=== PATIENT | female | born 1945 | race Caucasian/White ===

== ENCOUNTER 2019-12-23 08:02 | Outpatient (CLI) | payer MEDICARE, MEDICAID, SELFPAY ==
--- NOTE | 2019-12-23 08:31 | ECG_ITS ---
NAME OF STUDY: LEXISCAN SESTAMIBI STRESS TEST INDICATION: Chest Pain, PROCEDURE: At the baseline, the EKG revealed normal sinus rhythm with poor R wave progression. Possible old anteroseptal IN. Relatively low voltage complexes.. The baseline blood pressure was 168/63 mm Hg with a heart rate of 100 beats/min. Lexiscan was infused over a period of 20 seconds. A total of 0.4 milligrams of Lexiscan was infused. The stress phase was continued for a total of 5 minutes. Heart rate at the end of the stress phase was 110 with a blood pressure 177/56. The EKG at the peak infusion revealed no significant changes. Sestamibi was injected 20 seconds after the Lexiscan infusion. Blood pressure at the end of the recovery phase was 170/54 with a heart rate of 109 per minute. CONCLUSION: 1. No significant EKG changes with the LexiScan infusion 2. No LexiScan induced chest pain or cardiac arrhythmia 3. Normal blood pressure and heart rate response 4. Sestamibi/sestamibi perfusion scan pending; see separate report. Electronically Signed On 12-23-2019 13:17:03 CDT by Andriy Norton M.D. [email or web address]
--- NOTE | 2019-12-23 08:31 | NMCV_ITS ---
NM sharif perf SPECT r/s* [id number] Lacey Contreras Age: 74 Gender: F : 1945 Exam Date: 12/23/2019 09:30 Ordering Phys: Andriy Norton MD ([email or web address]) Technologist: [facility] Exam Location: [facility] Indications: CHEST PAIN STRESS TEST [facility] IMAGE PROTOCOL Rest/Stress 1 Lexiscan Day Radiopharmaceutical Dose (mCi) Administration Site Administered by Rest: Tc-99m 11.0 IV [facility] Heath Sestamibi Stress:Tc-99m 33.0 IV [facility] Sestamibi Rest: 23-Dec-2019 60 Discovery 630 Stress: 23-Dec-2019 30 Discovery 630 0.4mg Lexiscan. Supine position only as patient was unable to lay prone. SPECT RESULTS Technical Quality: Good Raw Data Analysis: Breast attenuation Image Corrections: No attenuation or motion correction applied Summed Stress Score: 6 Summed Rest Score: 1 Summed Difference Score: 5 PERFUSION FINDINGS Myocardial perfusion imaging revealing a small area of decreased tracer uptake in the mid inferolateral, apical lateral and LV apex. Complete reversibility was noted at rest. FUNCTIONAL RESULTS (calculated via Gated SPECT) Stress Image LV EF (%): 93 Stress EDV (mL):54 TID: 1.1 Stress ESV (mL):4 FUNCTIONAL FINDINGS: Segmental wall motion analysis revealing no gross wall motion normalities IMPRESSIONS 1. Myocardial perfusion may revealing a small area of reversible defect in the mid inferolateral, apical lateral and LV apex, suggestive of ischemia in the distribution of the left circumflex artery. 2. Supernormal LV ejection fraction of 93%.(This could be overestimated because of the very low end-systolic volume ) 3. LV wall motion analysis revealing no gross wall motion normalities. 4. Possibly normal LV volume No similar previous studies are available for comparison Dr Andriy Norton MD FACC (Electronically Signed) Final Date: 23 Dec 2019 13:46 S
[2019-12-23 08:32] VITALS: BMI 42.0
[2019-12-23] MEDS: regadenoson 0.4 Mg/5 ml Syringe IVP (10:25)
[2019-12-23 10:30] VITALS: BP 159/52; PULSE 100
== END 2019-12-23 08:03 | disposition home or self-care (01) ==
PROVIDERS: Family Provider Nurse Practitioner Family; Visit Provider Internal Medicine Cardiovascular Disease
DX: R06.02 Shortness of breath (principal); R07.89 Other chest pain
CPT/HCPCS: 78452; 93017; A9500; J2785

== ENCOUNTER → 2019-12-29 15:31 | Outpatient (BNVA) | payer MEDICARE, MEDICAID, SELFPAY | PROVIDERS: Family Provider Nurse Practitioner Family; Visit Provider Internal Medicine Cardiovascular Disease | DX: I50.33 Acute on chronic diastolic (congestive) heart failure (principal); R06.02 Shortness of breath; R07.89 Other chest pain; R06.00 Dyspnea, unspecified; R06.89 Other abnormalities of breathing; I35.0 Nonrheumatic aortic (valve) stenosis; I10 Essential (primary) hypertension; E11.65 Type 2 diabetes mellitus with hyperglycemia; M79.89 Other specified soft tissue disorders; Z79.4 Long term (current) use of insulin | CPT/HCPCS: 80048; 83880 ==

== ENCOUNTER 2020-01-19 09:02 | Observation (INO) | payer MEDICARE, MEDICAID, SELFPAY ==
[2020-01-18 12:54] VITALS: BMI 42.0
[2020-01-19] VITALS (33 sets, daily range): BP systolic 93–170; BP diastolic 46–68; PULSE 66–83; RESP 12–27; TEMP 36.8; O2SAT 92–97; BMI 42.0
--- NOTE | 2020-01-19 06:00 | XACV_ITS ---
Ht: 150 cm Wt: 94 kg BSA: 2.04 m2 Gender: Female : 1945 Any Known Allergies: Other Exam Priority: Routine Procedure(s): Procedure Description: Diagnostic procedure Procedure Description: Left Heart Catheterization Procedure Description: Left ventriculography Procedure Description: Coronary Angiography Procedure Description: Pressure Wire Diagnostic Cath Status: Elective Diagnostic Findings The left main is a medium caliber vessel with no significant stenotic lesions. The left anterior descending artery is a medium caliber vessel which appears to wrap around the LV apex minimally. The mid LAD was found to have 20 to 30% diffuse narrowing. Moderate diffuse coronary calcification also was noted. No significant stenotic lesions. The left circumflex artery is a medium caliber nondominant vessel which also was found to have around 30 to 40% tubular narrowing in the proximal segment, traversed the takeoff of the first obtuse marginal branch. Minimal ectasia was noted in the mid circumflex artery. No other significant stenotic lesions.. The intermedius artery is a small caliber vessel with minimal ostial narrowing. No significant stenotic lesions. The right coronary artery is a medium caliber dominant vessel which appears to have minimal intimal irregularities proximally. The distal segment of the artery, just before the bifurcation, was found to have a segmental narrowing from 60%. It appears to have a napkin ring type of lesion. PCI Status: Elective Conclusions This is a 74-year-old white female with history of hypertension, diabetes, dyslipidemia, chronic knee disease, presenting with increasing shortness of breath and features of congestive heart failure. She had a myocardial perfusion imaging revealing a small area of reversible defect in the apical lateral wall region. In view of the patient's multiple risk factors and the clinical presentation, in order to further evaluate her coronary status, a cardiac catheterization was recommended. Patient underwent left heart catheterization with left and right coronary angiogram today. The findings are as follows. 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 Mild diffuse disease in the other vessels. Elevated LVEDP of 35 mmHg. LV gram was not performed because of the high LVEDP and catheter induced ventricular arrhythmia. In order to understand the functional significance of the RCA lesion, and FFR was thought to be appropriate. I consider Dr. Ang at this point. Dr. Ang agreed with this plan and took over further management of this patient. The FFR was found to be 0.9. FFR: After equalizing the distal and proximal pressure of FFR wire proximal to the lesion in the aorta, Distal RCA lesion was crossed with FFR wire. IV adenosine at rate of 140 mcg/min was started. Patient did not compliant of any symptoms, at then end of two minutes FFR was recorded as 0.90, which is not significant . Recommendations Continue current medical management and risk factor modification. Diagnostic RX Recommendation: medical therapy and/or counseling LV EDP: 35 mmHg Left Ventriculography Findings: The LV gram was not performed because of the high LVEDP and also because of the frequent PVCs with LV catheter placement. Pressures Phase:Rest AO : 77 mmHg / 49 mmHg ( 65 mmHg ) @ 2:29:00 AM 79 mmHg / 52 mmHg ( 67 mmHg ) @ 2:30:00 AM 122 mmHg / 58 mmHg ( 81 mmHg ) @ 2:39:00 AM 120 mmHg / 49 mmHg ( 77 mmHg ) @ 2:39:00 AM LV : 123 mmHg / 19 mmHg / @ 2:38:00 AM 120 mmHg / 28 mmHg / @ 2:39:00 AM 119 mmHg / 11 mmHg / @ 2:39:00 AM Valves Phase:DefaultPhase AV : 0.0 mmHg @ 8:29:37 AM AV Mean Gradient: 0.0 mmHg @ 8:29:37 AM Clinical Evaluation EBL: 5mL-10mL Procedural Details Procedure Consent Obtained. Pre-Procedure Time Out. Identified patient by full name and date of as verbalized by the patient/guarantor. Does the consent match the physician's order: Yes. Accurate & Complete Informed Consent: Yes. Inpatient/Outpatient History & Physical on Chart: Yes. If H&P is completed, is and addenduem needed: No; If yes, is the addendum complete: N/A. Visualize and Verify Site with Patient/Guarantor: N/A. Relevant Radiology Images available: Yes. Pre-op teaching completed and patient verbalized understanding. The risks, benefits, and alternatives of sedation and/or procedure were discussed by physician. The patient agrees to continue. Procedure started. [facility] Clinical Fraility Score: 4: Vulnerable. Underwear Welter Indications: Worsening Angina. Chest Pain Symptom Assessment: Typical Angina Symptoms. Correct patient, site and procedure confirmed by cath team. Current diagnosis: Chest Pain. PERRLA. Strong, equal hand ruling machine operator bilaterally. Lungs clear x 5 lobes. IV Site on Arrival: 22 gauge in the left chest. IV Fluids: 0.9% NaCl at KVO. 0 mL infused prior to dairy and food laboratory assistant. Pre Procedural Pulses: bilateral dorsalis pedis was Doppled. Pre Procedural Pulses: bilateral posterior tibial was Doppled. Pre Procedural Pulses: right radial was 1+. Oxygen started at 2liters/min via nasal canula. right groin was prepped with chloroprep then draped in the usual sterile fashion. right radial was prepped with chloroprep then draped in the usual sterile fashion. Physician notified. Baseline sample Acquired. HR: 71 BPM. Patient's family unavailable. Physician arrived. Physician scrubbed in. Immediate Pre-Procedure Time Out. Correct Patient: Yes; Correct Procedure: Yes; Correct Site: Yes; Correct Patient Position: Yes; Correct Supplies: Yes; Dried Flammable Prep: Yes; Blood Products Available: N/A;. Lidocaine 1% infiltrated to the right radial. Arterial access obtained. A 5 scottish Trino catheter in over wire. Multiple views taken of left coronary artery. Catheter redirected to the RCA. Multiple views taken of right coronary artery. Catheter removed over the exchange wire. A 5 scottish Angled Pig catheter in over wire. Dr. Ang called to review films. EDP Sample taken: LV 123/19,29; HR: 72 BPM; SpO2: 98%. EDP Sample taken: LV 120/28,36; HR: 70 BPM; SpO2: 98%. Pullback taken: LV 119/11,36; AO 122/58(81); Mean: 0mmHg, Peak to Peak: 0mmHg, SEP: 4sec/min; HR: 71 BPM; SpO2: 99%. Dr. Norton scrubbed out. Side port of sheath attached to Normal Saline flush at KVO to maintain patency. Dr. Ang arrived. Dr. Ang scrubbed in to perform intervention. 6 scottish JR 4 guide catheter was inserted over the wire. FFR guidewire was advanced through the guide catheter to lesion in the distal RCA. An FFR value of 0.90 was obtained for a lesion located at Dist RCA. Fractional flow reserve measurements obtained. Wire out. Guide catheter out. TR band placed. Hemostasis obtained. A TR Band was successful obtaining hemostatsis at the Right Radial artery insertion site. Post Procedure: Pulses reassessed and unchanged. PERRLA. Strong, equal hand ruling machine operator bilaterally. No VTE prophylaxis required. Medication's Wasted: Lidocaine 1% = 18 mL. Medication's Wasted: Nitro = 49.8 mcg. Medication's Wasted: Heparin = 4000 units. Medication's Wasted: Other = Adenosine 60 mg, 1mg Versed, 50mcg Fentanyl. Total IV fluids: 367 mL. Contrast type used: Visipaque 320 mgI/mL, 500 mL bottle. Post-op diagnosis: Chest Pain. Complications: None. Estimated blood loss: 5mL-10mL. Procedure completed. Patient transferred by wheelchair to 1st floor. Vital chart was stopped. Site: Right Radial artery Sheath Size: 6 Fr Hemostasis Method: TR Band Hemostasis Success: Successful Procedure Medications Start: 7:13 AM Stop: 7:13 AM Medication: 0.9% Saline Amount: 250 ml Route: I.V. bolus Start: 7:17 AM Stop: 7:17 AM Medication: Versed Amount: 1 mg Start: 7:17 AM Stop: 7:17 AM Medication: Fentanyl Amount: 50 mcg Start: 7:23 AM Stop: 7:23 AM Medication: Versed Amount: 1 mg Start: 7:24 AM Stop: 7: AM Medication: Verapamil Amount: 5 mg Route: I.A. Start: 7:25 AM Stop: 7:25 AM Medication: Nitrogylcerin Amount: 200 mcg Route: I.A. Start: 7:25 AM Stop: 7:25 AM Medication: Fentanyl Amount: 50 mcg Start: 7:27 AM Stop: 7: AM Medication: Heparin Amount: 5000 units Route: I.V. Start: 7:29 AM Stop: 7:29 AM Medication: 0.9% Saline Amount: 125 ml/hr Route: I.V. drip Start: 7:33 AM Stop: 7:33 AM Medication: Versed Amount: 1 mg Start: 7:33 AM Stop: 7:33 AM Medication: Fentanyl Amount: 50 mcg Start: 8:15 AM Stop: 8:15 AM Medication: Heparin Amount: 2000 units Route: I.V. I, the attending physician, have reviewed and verified all procedure medications. Yes, all medications given per verbal order History/Risk Factors Hypertension: Yes Dyslipidemia: No Diabetic Therapy: Oral Peripheral Arterial Disease (PAD): No Myocardial Infarction (UT): No Obesity: Yes Renal Disease: No Tobacco Use: Former Prior Interventions PCI: No CABG: No Valve Surgery: No Report Signatures Interventional Workflow - Finalized by: Zully Ang MD on 01/30/2020 1:13:18 PM Diagnostic Workflow - Finalized by:Dr Andriy Norton MD [facility] on 01/19/2020 6:50:40 PM
[2020-01-19 06:46] LABS: Basophils % 0.4 %; Eosinophils # 0.2 10^3/uL (0.0-0.8); Eosinophils % 2.1 %; Hematocrit 34.6 % (37.0-47.0); Hemoglobin 10.8 g/dL (11.5-15.3); Lymphocytes # 2.2 10^3/uL (0.8-4.8); Lymphocytes % 20.1 %; Mean Corpuscular HGB Conc 31.2 g/dL (30.0-36.0); Mean Corpuscular Hemoglobin 28.2 pg (28.0-34.0); Mean Corpuscular Volume 90.3 fL (81-99); Mean Platelet Volume 10.6 fL (7.4-10.4); Monocytes # 0.8 10^3/uL (0.2-0.9); Monocytes % 7.2 %; Neutrophils # 7.5 10^3/uL (1.8-7.7); Neutrophils % 69.9 %; Nucleated Red Blood Cells % 0 %; Platelet Count 234 10^3/cmm (130-400); Red Blood Count 3.83 10^6/uL (4.1-5.3); Red Cell Distribution Width 13.2 % (12.1-15.1); White Blood Count 10.7 10^3/uL (4.0-10.0)
[2020-01-19] MEDS: diphenhydrAMINE 50 mg Capsule PO (06:50)
[2020-01-19 06:55] LABS: INR 0.96 (0.8-1.2)
[2020-01-19 07:01] LABS: Anion Gap 18.9 (5-19); Blood Urea Nitrogen 38 mg/dL (8-23); Calcium 8.9 mg/dL (8.5-10.5); Carbon Dioxide 28 mmol/L (22-29); Chloride 100 mmol/L (98-107); Glucose 177 mg/dL (65-115); Osmolality Calculated 298 mOsm/kg (285-295); Potassium 3.9 mmol/L (3.5-5.1); Sodium 143 mmol/L (136-145)
--- NOTE | 2020-01-19 07:05 | W.PM.OPSUD ---
Surgery/Procedure H&P Update DATE OF PROCEDURE: January 19, 2020 DATE H&P PERFORMED: 12/29/19 H&P UPDATE INFORMATION: I have reviewed H&P completed within last 30 days, I have examined patient prior to procedure, No changes to prior documentation and H&P is in [facility] EMR on date indicated CHANGES TO PREVIOUS DOCUMENTATION: Patient has stage III kidney disease possibly from diabetes PREOP DIAGNOSIS: Abnormal stress test, essential benign hypertension, type 2 diabetes, dyslipidemia. PLANNED PROCEDURE: Operation Date: 01/19/20 07:00 Proposed Procedures p Cardiac Catheterization abnormal stress test(Left) - Andriy Norton MD PATIENT REASSESSED PRIOR TO SEDATION, WITH NO CHANGE NOTED: Yes PHYSICAL EXAM: alert, oriented x 3, clear to auscultation bilaterally and regular rate & rhythm AIRWAY EVAL/ANESTHESIA PLAN: ASA II, ASA III, Risks, benefits & alternatives of sedation and/or procedure discussed and Patient agrees to continue as planned
--- NOTE | 2020-01-19 09:45 | PC.NURSE ---
patient received from clinical lab scientist TR band in place pulse palpated and color is good patient educated on restrictions and limitations while TR band is in place and after TR band is removed patient verbalized understanding of instructions
--- NOTE | 2020-01-19 10:30 | PC.NURSE ---
Dr Norton at bedside instructions to continue fluids from garage laborer until gone
--- NOTE | 2020-01-19 10:41 | PC.NURSE ---
patient reports taking all blood pressure medications at home prior to admissions reports she took amlodipine lisinopril and metoprolol
[2020-01-19 11:21] LABS: Glucose Point of Care 264 mg/dL (70-110)
[2020-01-19] MEDS: cholecalciferol (vitamin D3) 1,000 unit Tablet 1000 UNIT PO (12:56)
--- NOTE | 2020-01-19 13:15 | PC.NURSE ---
TR band removed perrpotocol with no adverse events noted clear dressing placed and patient educated on restrictions and site care patient verbalized understanding and wishes to have written instructions that will be provided will continue to monitor site and educate patient as needed
[2020-01-19] MEDS: FUROsemide 40 mg Tablet PO (16:13)
[2020-01-19 16:31] LABS: Glucose Point of Care 241 mg/dL (70-110)
[2020-01-19] MEDS: metoprolol tartrate 25 mg Tablet PO (17:55)
[2020-01-19] MEDS: lisinopril 20 mg Tablet PO (17:55)
[2020-01-19] MEDS: insulin nph human 100 units/1 mL 27 UNIT SUBCUT (17:56)
--- NOTE | 2020-01-19 18:07 | PC.NURSE ---
Dr Norton contacted to verify that he wanted continuous fluids on patient new orders given to run normal saline at 75 ml/h and a BMP in the am
[2020-01-19] MEDS: sodium chloride 0.9% 1,000 ML 75 ML IV (18:45)
--- NOTE | 2020-01-19 19:02 | PC.NURSE ---
Received bedside report from Lexi Aguilar RN. Patient up to chair. Patient is s/p LHC via right radial access. Dressing in place. Site has no s/s of bleeding or hematoma formation observed. Discussed site care instructions. Patient stated, it is hard to remember not to use my arm. Discussed plan of care. Patient verbalized understanding of all.
[2020-01-19] MEDS: atorvastatin 40 mg Tablet 20 MG PO (20:32)
[2020-01-19 20:45] LABS: Glucose Point of Care 177 mg/dL (70-110)
[2020-01-20] VITALS: BP 120/56; PULSE 72; RESP 25; TEMP 37; O2SAT 93
--- NOTE | 2020-01-20 03:45 | PC.NURSE ---
Patient assisted up to bathroom and then up to chair ~250. Patient returned to bed at this time with standby to minimal contact assistance. Dressing to right wrist remain c,d,i. No s/s of bleeding or hematoma formation observed.
[2020-01-20 04:00] VITALS: BP 124/53; PULSE 72; RESP 33; TEMP 36.6; O2SAT 94
[2020-01-20 05:28] LABS: Anion Gap 17.8 (5-19); Blood Urea Nitrogen 27 mg/dL (8-23); Calcium 8.4 mg/dL (8.5-10.5); Carbon Dioxide 27 mmol/L (22-29); Chloride 101 mmol/L (98-107); Creatinine Clr Calc Pharmacy 62.1882; Glucose 90 mg/dL (65-115); Osmolality Calculated 291 mOsm/kg (285-295); Potassium 3.8 mmol/L (3.5-5.1); Sodium 142 mmol/L (136-145)
[2020-01-20 06:25] LABS: Glucose Point of Care 108 mg/dL (70-110)
[2020-01-20] MEDS: insulin nph human 100 units/1 mL 37 UNIT SUBCUT (06:39)
--- NOTE | 2020-01-20 06:41 | PC.NURSE ---
Patient morning BS is 108. NPH was given as ordered. Waiting to give Novolg 17units until breakfast arrives to prevent sudden drop in Blood Sugar. Explained to patient the plan and she verbalized complete understanding and agreed to wait for breakfast.
[2020-01-20 07:18] VITALS: BP 121/52; PULSE 78; RESP 29; TEMP 36.7; O2SAT 95
--- NOTE | 2020-01-20 07:20 | PC.NURSE ---
NOVOLOG dose given late, waiting for breakfast tray due to blood sugar being 108 this am.
[2020-01-20] MEDS: acetaminophen 325 mg Tablet 650 MG PO (08:05)
[2020-01-20] MEDS: FUROsemide 40 mg Tablet PO (08:06)
--- NOTE | 2020-01-20 08:16 | PC.NURSE ---
Contacted Dr. Norton about POC and plan for discharge; continuing fluids new instructions received stop IV fluids and give Isosorbide Mononitrate 30mg
--- NOTE | 2020-01-20 08:31 | PC.NURSE ---
Dr sheffield at [facility] for rounding Discussed POC and plan for discharge; medication changes and follow up care
[2020-01-20 09:08] LABS: Chol HDL Ratio 2.83 mg/dL (0.0-4.40); Cholesterol 85 mg/dL (0-200); HDL Cholesterol 30 mg/dL (60-100); LDL Cholesterol Calculated 30 mg/dL (50-129); Triglycerides 127 mg/dL (0-150)
--- NOTE | 2020-01-20 09:08 | P.SS_ITS ---
Short Stay Summary Providers Date of Admit/Discharge: 01/20/20 Attending Provider: Andriy Norton MD Primary Care Provider: Sun Rosario MD Chief Complaint: ANGIOGRAM HPI History of Present Illness Lacey Contreras is a 74 year old female with a history of hypertension, type 2 diabetes, dyslipidemia, chronic kidney disease, heart failure and multiple other medical problems. She underwent a cardiac authorization yesterday. She was found to have mild to moderate coronary artery disease. She was mainly admitted to hospital for IV hydration and medication management. She was treated with IV saline. Her basic repeat BMP this morning revealed creatinine of 1.2 and a BUN of 27. This is essentially unchanged from the precath numbers. Patient has no chest pain or palpitation. She was started on isosorbide mononitrate for the markedly elevated left ventricular end-diastolic pressure. She tolerates this medication well. Since the patient remained stable with no new symptoms, she is being discharged home today Review of Systems Narrative: CONSTITUTIONAL: No fever or chills. EYES: No blurring of vision or other visual disturbances lately. ENT: No hoarseness of voice, auditory disturbances or sore throat. CARDIOVASCULAR: As mentioned above. RESPIRATORY: No significant cough. GASTROINTESTINAL: No hematemesis or melena. GENITOURINARY: No dysuria or hematuria. INTEGUMENTARY: No skin rashes or history of skin cancer. NEURO: No transient ischemic attacks or amaurosis. PSYCHIATRIC: No history of psychosis or major depression. HEMATOLOGIC: No bleeding disorders or significant anemia. ENDOCRINE: No history of polyuria or polydipsia. MUSCULOSKELETAL: No recent joint pain or swelling. ALLERGY/IMMUNOLOGY: As mentioned above. Home Meds/Allergies Home Medications and Allergies Home Medications Medication Instructions Recorded Confirmed Type atorvastatin 20 mg tablet 20 mg PO DAILY 11/15/19 01/18/20 History budesonide-formoterol HFA 80 2 puff INHALATION BID PRN 11/15/19 01/18/20 History mcg-4.5 mcg/actuation aerosol inhaler cholecalciferol (vitamin D3) 25 1,000 unit PO DAILY 11/15/19 01/19/20 History mcg (1,000 unit) capsule glucosamine 500 See Rx Instructions .ROUTE .COMPLEX 11/15/19 01/19/20 History oh-zhxuxbpmc-ovznkehm comp 400 mg-D3 667 unit-C-Mn cap lisinopril 20 mg tablet 20 mg PO BID 11/15/19 01/18/20 History metformin 500 mg tablet 500 mg PO BID 11/15/19 01/18/20 History multivitamin with minerals 1 tab PO DAILY 11/15/19 01/18/20 History furosemide 20 mg tablet 40 mg PO BID tab 12/29/19 01/19/20 History Novolin R Flexpen 12 unit SUBCUT QPM 01/18/20 01/18/20 History Novolin R Flexpen 17 unit SUBCUT QAM 01/18/20 01/18/20 History insulin NPH isoph U-100 human 27 unit SUBCUT QPM 01/18/20 01/18/20 History insulin NPH isoph U-100 human 37 unit SUBCUT QAM 01/18/20 01/18/20 History Allergies Allergy/AdvReac Type Severity Reaction Status Date / Time Penicillins Allergy Severe ALGY-Rash Verified 01/18/20 12:47 cephalexin [From Keflex] Allergy Intermediate ADR-Shakine Verified 01/18/20 12:47 ss levofloxacin [From Levaquin] Allergy Intermediate ALGY-Hives Verified 01/18/20 12:47 PFSH Acute PFSH: Medical History Abnormal electrocardiogram [ECG] [EKG] Aortic valve stenosis Arthritis Atypical chest pain EKG done on 15 March 2019 revealed a sinus rhythm with poor however progression. Minimal left axis deviation. No acute ST-T changes. These findings are essentially unchanged from 2017. COPD (chronic obstructive pulmonary disease) Diabetes Dyspnea and respiratory abnormalities HTN (hypertension) Leg swelling SOB (shortness of breath) Surgical History H/O section S/P cholecystectomy Family History Father , of [place] at 77, started in his 40s No problems noted. Mother , Had CABG in the 70s No problems noted. Grandfather , of [place] in the 70s No problems noted. Sister Atrial fibrillation Social History Smoking and tobacco status: former smoker Vitals/I&O/Wt Last Vital Signs Temp 98.1 F 01/20/20 07:18 Pulse 78 01/20/20 07:18 Resp 29 H 01/20/20 07:18 BP 121/52 01/20/20 07:18 Pulse Ox 95 01/20/20 07:18 01/19/20 01/20/20 01/20/20 22:59 06:59 14:59 Intake Total 840 / 960 240 / 240 Output Total 600 / 600 Balance 840 / 960 -600 / 360 240 / 240 Weight last 48 hrs Weight 208 lb Weight 208 lb Physical Exam Narrative: EXAM NARRATIVE: GENERAL: The patient is alert and oriented times three. Not in any acute distress. HEENT: No significant pallor, icterus or lymphadenopathy.Oral cavity: There are no mucous membrane lesions. NECK: Trachea appears to be central. No masses noted. No JVD or thyromegaly appreciated. RESPIRATORY: Chest is symmetrical. No intercostals muscle retraction or any accessory muscle activation. There is no chest wall tenderness. Breath sounds are heard bilaterally. No rales or rhonchi heard. No evidence of any consolidation. BREASTS: Deferred. HEART: The heart sounds are normal. No S3 or S4. No significant murmurs. No pericardial rub ABDOMEN: No vessel pulsations or distention. No tenderness. No organomegaly appreciated. Bowel sounds are normally heard. : Deferred. RECTAL: Deferred. LYMPHATIC: No lymphadenopathy noted in the neck or groin. EXTREMITIES: No significant edema or cyanosis. MUSCULOSKELETAL: No acute joint deformities or swelling SKIN: There are no significant rashes or ecchymosis NEUROPSYCHIATRIC: The patient is alert and oriented x3. Appears to be in a good mood. No tremors or rigidity noted. Hospital Course Hospital Course: Patient remained stable throughout the hospital course. She was treated with IV normal saline and the other home medications. Her blood sugar was closely monitored. She was started on isosorbide mononitrate 30 mg p.o. daily. She tolerates the medication well. Discharge Summary: Since the patient remained stable with no new symptoms, she is being discharged home. She will be continued on the pre-hospital medications except the metformin which will be held for 2 more days. She also will start taking the isosorbide mononitrate 30 mg p.o. daily. SSS Data Data Completed and Pending: Pending at discharge Category Date Time Status CIRCUS ARTIST request for service Routin e Exams 01/19/20 06:00 Taken Laboratory Results - last 24 hr 01/20/20 01/20/20 01/20/20 04:20 04:20 06:12 Sodium 142 Potassium 3.8 Chloride 101 Carbon Dioxide 27 Anion Gap 17.8 BUN 27 H Creatinine 1.2 H Glucose 90 POC Glucose 108 Calculated Osmolal ity 291 Calcium 8.4 L Triglycerides 127 Cholesterol 85 LDL Cholesterol, C alc 30 L HDL Cholesterol 30 L LDL/HDL Ratio 1.00 Cholesterol/HDL Ra rafy 2.83 01/20/20 11:03 Sodium Potassium Chloride Carbon Dioxide Anion Gap BUN Creatinine Glucose POC Glucose 146 Calculated Osmolal ity Calcium Triglycerides Cholesterol LDL Cholesterol, C alc HDL Cholesterol LDL/HDL Ratio Cholesterol/HDL Ra rafy Discharge Plan Discharge Patient Disposition: Home, Self-Care Condition: Stable Prescriptions: New isosorbide mononitrate 30 mg tablet extended release 24 hr 30 mg PO DAILY 30 Days Qty: 30 RF: 5 Continued metoprolol tartrate 25 mg tablet 25 mg PO BID 30 Days Qty: 60 RF: 5 lisinopril 20 mg tablet 20 mg PO BID RF: 0 Symbicort 80-4.5 mcg/actuation HFA aerosol inhaler 2 puff INHALATION BID PRN (Reason: Shortness Of Breath) RF: 0 atorvastatin 20 mg tablet 20 mg PO DAILY RF: 0 cholecalciferol (vitamin D3) 25 mcg (1,000 unit) capsule 1,000 unit PO DAILY RF: 0 multivitamin with minerals [Hair,Skin and Nails] Tablet 1 tab PO DAILY RF: 0 Gopozcokxxr-Kizokh-E0 (C-georgi) 500-400-667 mg-mg-unit capsule See Rx Instructions .ROUTE .COMPLEX RF: 0 amlodipine 5 mg tablet 5 mg PO DAILY 30 Days Qty: 30 RF: 5 furosemide [Lasix] 20 mg tablet 40 mg PO BID RF: 0 Novolin R Flexpen 100 unit/mL (3 mL) Insulin Pen 17 unit SUBCUT QAM RF: 0 Novolin R Flexpen 100 unit/mL (3 mL) Insulin Pen 12 unit SUBCUT QPM RF: 0 insulin NPH isoph U-100 human 100 unit/mL (3 mL) Insulin Pen 27 unit SUBCUT QPM RF: 0 insulin NPH isoph U-100 human 100 unit/mL (3 mL) Insulin Pen 37 unit SUBCUT QAM RF: 0 Held metformin 500 mg tablet 500 mg PO BID RF: 0 Hold Instructions: Resume on 01/22/20. Discharge Orders: Discharge Order (Routine); Ordered 01/20/20 Ordered By: Andriy Norton Referrals: Andriy Norton MD [Physician] - 1 month (you have follow up appointment on February 23 at 11:30 am ) Shey Beaver FNP [Nurse Practitioner] - 4-7 days (you have follow up appointment for site check and blood work on January 26 at 10:30 am) Discharge Diet: Cardiac Discharge Activity: Resume usual activity Patient Instructions: Dependent Edema, Isosorbide Mononitrate (By mouth), Left Heart Catheterization (DC), Right Heart Catheterization (DC), Coronary Angioplasty (DC), Chest Pain Stoplight, Post Angiogram Home Care Instructions Activity Restrictions/Additional Instructions: Avoid any weight lifting with the right hand for the next 3 days Discharge Date/Time: 01/20/20 12:08 Attestations Medical Necessity Statement*: Discharge home today Time Spent in Patient Care*: greater than 30 min Quality Metrics Clinical Quality Measures: During this hospital stay, did patient experience: None Coding Level of Care Code Acute Seismic Prospecting Observer for Radha Dalal
[2020-01-20] MEDS: metoprolol tartrate 25 mg Tablet PO (09:37)
[2020-01-20] MEDS: isosorbide mononitrate ER 30 mg Tablet PO (09:37)
[2020-01-20] MEDS: amlodipine 5 mg Tablet PO (09:37)
[2020-01-20] MEDS: lisinopril 20 mg Tablet PO (09:38)
[2020-01-20] MEDS: cholecalciferol (vitamin D3) 1,000 unit Tablet 1000 UNIT PO (09:38)
[2020-01-20 11:03] VITALS: BP 111/53; PULSE 68; RESP 19; TEMP 36.6; O2SAT 97
[2020-01-20 11:22] VITALS: BP 111/53; PULSE 68; RESP 19; TEMP 36.6; O2SAT 97
[2020-01-20 11:35] LABS: Glucose Point of Care 146 mg/dL (70-110)
--- NOTE | 2020-01-20 12:08 | PC.NURSE ---
Patient discharge home at this time; discharge instructions as well as all belongings in hand. Patient assisted to private vehicle by staff via wheel chair. patient alert and oriented in stable conditions.
== END 2020-01-20 12:08 | disposition home or self-care (01) ==
LOC: CSU 09:03
PROVIDERS: Internal Medicine Cardiovascular Disease; Admitting Provider Internal Medicine Cardiovascular Disease; PCP Family Medicine; Visit Provider Internal Medicine Cardiovascular Disease
DX: R94.39 Abnormal result of other cardiovascular function study (principal); E11.22 Type 2 diabetes mellitus with diabetic chronic kidney disease; I12.9 Hypertensive chronic kidney disease with stage 1 through stage 4 chronic kidney disease, or unspecified chronic kidney disease; N18.3 Chronic kidney disease, stage 3 (moderate); E78.5 Hyperlipidemia, unspecified; I50.9 Heart failure, unspecified; Z79.4 Long term (current) use of insulin; M19.90 Unspecified osteoarthritis, unspecified site; Z87.891 Personal history of nicotine dependence; J44.9 Chronic obstructive pulmonary disease, unspecified
CPT/HCPCS: 12345; 36415; 36416; 80048; 80061; 82962; 85025; 85610; 93452; 93571; 96372; C1769; C1887; C1894; G0378; J0153; J1644; J1815; J2001; J2250; J3010; J3490; J7030; Q0163; Q9967

== ENCOUNTER 2020-02-06 14:06 | Emergency (ER) | payer MEDICARE, MEDICAID, SELFPAY ==
[2020-02-06 14:16] VITALS: BP 153/74; PULSE 115; RESP 18; TEMP 36.8; O2SAT 94; BMI 41.2
--- NOTE | 2020-02-06 14:34 | ECG_ITS ---
[facility] Test Date: 2020-02-06 Pat Name: Lacey Contreras Department: Room: Gender: Female Women Designer: : 1945 Requested By: Sugey Mae Order Number: [id number] [place] MD: Jose Caraballo M.D. Measurements Intervals Turner Rate: 112 P: 39 OK: 169 QRS: 11 QRSD: 86 T: 61 QT: 302 QTc: 412 Interpretive Statements SINUS TACHYCARDIA LOW QRS VOLTAGE IN PRECORDIAL LEADS [QRS DEFLECTION < 1.0 mV IN CHEST LEADS] POSSIBLE ANTERIOR MYOCARDIAL INFARCTION , PROBABLY OLD [30 ms Q WAVE IN V3/V4, OR R < 0.2 mV IN V4] ABNORMAL RHYTHM ECG No previous ECG available for comparison Electronically Signed On 02-07-2020 9:38:17 CDT by Jose Caraballo M.D. [email or web address]
--- NOTE | 2020-02-06 14:34 | XRR_ITS ---
PROCEDURE INFORMATION: Exam: XR Chest, 1 View Exam date and time: 02/06/2020 2:35 PM Age: 74 years old Clinical indication: Chest pain; Additional info: Chest pain, palpitations TECHNIQUE: Imaging protocol: XR of the chest Views: 1 view. COMPARISON: No relevant prior studies available. FINDINGS: Lungs: Unremarkable. No consolidation. Pleural space: Unremarkable. No pleural effusion. No pneumothorax. Heart/Mediastinum: Unremarkable. No cardiomegaly. Vasculature: Calcification of the thoracic aorta and/or great vessels consistent with atherosclerotic vessel disease. Bones/joints: Mild right primary glenohumeral osteoarthritis. Mild left glenohumeral primary osteoarthritis. XR/XR chest 1V portable [id number] IMPRESSION: No acute findings.
[2020-02-06 14:50] VITALS: BP 166/64; PULSE 116; RESP 26; O2SAT 97
[2020-02-06] MEDS: metoprolol tartrate 1 mg/1 mL SDV 5 mL 2.5 MG IV ×2 (14:52→16:51)
[2020-02-06 14:59] LABS: Basophils % 0.2 %; Eosinophils # 0.1 10^3/uL (0.0-0.8); Hematocrit 35.9 % (37.0-47.0); Hemoglobin 11.3 g/dL (11.5-15.3); Lymphocytes # 1.9 10^3/uL (0.8-4.8); Lymphocytes % 14.7 %; Mean Corpuscular HGB Conc 31.5 g/dL (30.0-36.0); Mean Corpuscular Hemoglobin 27.6 pg (28.0-34.0); Mean Corpuscular Volume 87.8 fL (81-99); Mean Platelet Volume 10.8 fL (7.4-10.4); Monocytes # 0.8 10^3/uL (0.2-0.9); Neutrophils # 9.9 10^3/uL (1.8-7.7); Neutrophils % 77.8 %; Nucleated Red Blood Cells % 0 %; Platelet Count 286 10^3/cmm (130-400); Red Blood Count 4.09 10^6/uL (4.1-5.3); Red Cell Distribution Width 13.2 % (12.1-15.1); White Blood Count 12.8 10^3/uL (4.0-10.0)
[2020-02-06 15:26] LABS: Lactate (Lactic Acid level) 3.6 mmol/L (0.5-2.2); Troponin(5th) Baseline 32 ng/L (0-10)
[2020-02-06 15:36] LABS: Alanine Aminotransferase 20 U/L (0-33); Albumin Level 4.6 g/dL (3.5-5.2); Alkaline Phosphatase 113 IU/L (35-105); Anion Gap 22.2 (5-19); Aspartate Amino Transferase 18 U/L (0-32); Blood Urea Nitrogen 37 mg/dL (8-23); Carbon Dioxide 27 mmol/L (22-29); Chloride 92 mmol/L (98-107); Globulin 2.5 g/dL (1.3-4.6); Glucose 243 mg/dL (65-115); Magnesium 1.7 mg/dL (1.7-2.3); NT Pro B Type Natriuretic Pept 527 pg/mL (0-125); Osmolality Calculated 288 mOsm/kg (285-295); Potassium 5.2 mmol/L (3.5-5.1); Sodium 136 mmol/L (136-145); Total Bilirubin 0.6 mg/dL (0.15-1.2); Total Protein 7.1 g/dL (6.6-8.7)
[2020-02-06 15:40] VITALS: BP 118/60; PULSE 100; RESP 19; O2SAT 97
--- NOTE | 2020-02-06 15:55 | ED_ITS ---
HPI - Arrhythmia/Palpitations General: Chief Complaint: Arrhythmia/Palpitations Stated Complaint: high hr/ low bp Time Seen by Provider: 02/06/20 14:19 History of Present Illness: HPI narrative: This is a 74-year-old female presenting today with complaints of her blood pressure being too low and her heart rate being too high. On Friday she noted that she had a headache and thinks she may have had a dull headache for a few days prior to that. She checked her blood pressure at home and felt like it was too low although when she showed me oh documentation of what her blood pressures have been they were still in the 150s systolic but down around 50 or 60 diastolic. Her heart rate at that time was normal. She stopped taking her metoprolol, lisinopril, amlodipine. She went and saw her primary care and [place] on Friday who agreed with her stopping those medications. The patient does take isosorbide mononitrate and she had continued that and was instructed to not stop that one. She had been started on that earlier this month after a cardiac cath by Dr. Norton. She was found to have some noncritical blockages. She also has revamped her diet since that time. She was eating a lot of sodium and has now cut it down to less than 2500 mg/day. She notes that in the past week or so she has had a marked improvement in the swelling in her legs that she normally has. She takes Lasix and was originally on 20 mg twice a day. A few months ago Dr. Norton increased it to 40 mg twice daily. She has had a little bit of shortness of breath and some chest discomfort when she gets up and moves around too much. That something that is been going on for quite some time and is not worse recently. What actually brought her to the emergency room today was the feeling that her heart was racing. She noticed it starting Friday evening. She does not notice it skipping beats or being irregular, just that it is fast and beating heart. MD complaint: rapid heart beat Onset (ago): day(s) (2) Duration: constant Severity: moderate Context: occurred during rest Associated symptoms: Deny nausea or vomiting Review of Systems General: Reports: 10 or more systems reviewed and unremarkable except in HPI and below Const: Denies: fever(s), chills, fatigue or malaise Eyes: Denies: change in vision ENMT: Denies: odynophagia Card: Reports: dyspnea on exertion; Denies: chest pain, swelling of feet/ankles (Recently resolved chronic swelling) or orthopnea Resp: Reports: dyspnea (With exertion) and productive cough (Occasionally); Denies: non-productive cough GI: Denies: abdominal pain, nausea or vomiting : Denies: flank pain or difficulty voiding Musc: Denies: neck pain or back pain Skin/Breast: Denies: rash Neuro: Denies: headache(s), numbness in extremities or weakness in extremities [place]/Lymph: Denies: easy bruising or easy bleeding PFSH ED PFSH: Medical History Abnormal electrocardiogram [ECG] [EKG] Aortic valve stenosis Arthritis Atypical chest pain EKG done on 15 March 2019 revealed a sinus rhythm with poor however progression. Minimal left axis deviation. No acute ST-T changes. These findings are essentially unchanged from 2017. COPD (chronic obstructive pulmonary disease) Diabetes Dyspnea and respiratory abnormalities HTN (hypertension) Leg swelling SOB (shortness of breath) Surgical History H/O section S/P cholecystectomy Family History Father , of [place] at 77, started in his 40s No problems noted. Mother , Had CABG in the 70s No problems noted. Grandfather , of [place] in the 70s No problems noted. Sister Atrial fibrillation Social History Smoking and tobacco status: former smoker Physical Exam Const: COMMON NORMALS: no acute distress, patient oriented x3, no limitations and alert GENERAL APPEARANCE: cooperative and comfortable HENMT: HEAD & SCALP: normal to inspection FACE & SINUS: normal facial exam Eye: GENERAL EYE: appearance normal, both eyes and all related structures Neck/C-Spine: COMMON NORMALS: supple, no meningeal signs and no JVD Chest: COMMONS NORMALS: normal inspection of the chest Resp: COMMON NORMALS: normal respiratory effort, No use of accessory muscles and clear to auscultation bilaterally AUSCULTATION: clear to auscultation bilaterally Cardio: COMMON NORMALS: no JVD, regular rhythm and No murmurs present (Cardio) RATE: tachycardic (110) RHYTHM: regular rhythm GI: COMMON NORMALS: Normal to inspection, nondistended, normoactive bowel sounds present, Soft to palpation and non-tender INSPECTION: Yes normal to inspection AUSCULTATION: Yes normoactive bowel sounds PALPATION: Yes Soft to palpation Back/Pelvis: COMMON NORMALS: thoracic and lumbar spine normal to inspection Extremity: COMMON NORMALS: normal to inspection Neuro: COMMON NORMALS: patient oriented x3, moves all extremities, no focal motor deficits and no sensory deficits noted SENSORIUM/ORIENTATION: Yes alert MENINGEAL SIGNS: Yes no meningeal signs Psych: COMMON NORMALS: mental status grossly normal, cooperative and normal affect Skin: COMMON NORMALS: no rashes or lesions noted and turgor normal GENERAL SKIN EXAM: no rashes or lesions noted and turgor normal Course ED course: This patient has had quite a few medication changes recently including an increased dose of Lasix, addition of isosorbide mononitrate, and changes to her diet with severe sodium restriction. She has noticed a dramatic decrease in her leg swelling with all these changes. Her labs show an increased creatinine which is probably related to the increased Lasix dose. She also has an elevated potassium and on questioning she has been using a potassium salt replacement. I suspect her racing heart is related to stopping metoprolol suddenly. Her blood pressure on the last check in the ER was 127/87. I did give her a total of 5 mg of metoprolol IV and her heart rate came down to under 100 and stayed in the high 80s. We made a plan for her to be able to go home. I asked her to not restrict her sodium quite as much and her daughter has been helping her to get to a reasonable level of about 2-1/2 g/day. She had cut it down to much lower than that. She is also going to stop using the potassium salt replacement. She is going to decrease her Lasix dose back to her previous dose. She is going to restart her metoprolol at half her normal dose which will be 12.5 mg twice daily. She will continue to hold her amlodipine and lisinopril until she sees Dr. Norton in a few weeks. She also has a phone call scheduled with her primary care provider on Friday to see how she is doing. She will continue to monitor her blood pressure and heart rate at home. Vital Signs: Vital signs: Vital Signs Temperature 98.3 F 02/06/20 17:49 Pulse Rate 98 02/06/20 17:49 Respiratory Rate 18 02/06/20 17:49 Blood Pressure 127/79 02/06/20 17:49 Pulse Oximetry 96 02/06/20 17:49 MDM - Arrhythmia/Palpitations Lab Data: Labs: Lab Results 02/06/20 02/06/20 02/06/20 Range/Units 14:52 14:52 14:52 WBC 12.8 H (4.0-10.0) 10^3/ uL RBC 4.09 L (4.1-5.3) 10^6/u L Hgb 11.3 L (11.5-15.3) g/dL Hct 35.9 L (37.0-47.0) % MCV 87.8 (81-99) fL MCH 27.6 L (28.0-34.0) pg MCHC 31.5 (30.0-36.0) g/dL RDW 13.2 (12.1-15.1) % Plt Count 286 (130-400) 10^3/c mm MPV 10.8 H (7.4-10.4) fL Neut % (Auto) 77.8 % Lymph % (Auto) 14.7 % [place] % (Auto) 6.0 % Eos % (Auto) 1.0 % Baso % (Auto) 0.2 % Neut # (Auto) 9.9 H (1.8-7.7) 10^3/u L Lymph # (Auto) 1.9 (0.8-4.8) 10^3/u L [place] # (Auto) 0.8 (0.2-0.9) 10^3/u L Eos # (Auto) 0.1 (0.0-0.8) 10^3/u L Baso # (Auto) 0.0 (0.0-0.1) 10^3/u L Nucleated RBC % (a uto) 0 % Nucleated RBCs # 0.0 /100WBC Sodium 136 (136-145) mmol/L Potassium 5.2 H (3.5-5.1) mmol/L Chloride 92 L (98-107) mmol/L Carbon Dioxide 27 (22-29) mmol/L Anion Gap 22.2 H (5-19) BUN 37 H (8-23) mg/dL Creatinine 1.8 H (0.5-0.9) mg/dL Glucose 243 H (65-115) mg/dL Calculated Osmolal ity 288 (285-295) mOsm/k g Lactate 3.6 H (0.5-2.2) mmol/L Calcium 10.0 (8.5-10.5) mg/dL Magnesium 1.7 (1.7-2.3) mg/dL Total Bilirubin 0.6 (0.15-1.2) mg/dL AST 18 (0-32) U/L ALT 20 (0-33) U/L Alkaline Phosphata se 113 H (35-105) IU/L Troponin T Baselin e (0-10) ng/L Troponin T 120 Min [place] (0-10) ng/L Delta Troponin T (0-10) ABS# NT-Pro-B Natriuret Pep 527 H (0-125) pg/mL Total Protein 7.1 (6.6-8.7) g/dL Albumin 4.6 (3.5-5.2) g/dL Globulin 2.5 (1.3-4.6) g/dL 02/06/20 02/06/20 Range/Units 14:52 16:40 WBC (4.0-10.0) 10^3/ uL RBC (4.1-5.3) 10^6/u L Hgb (11.5-15.3) g/dL Hct (37.0-47.0) % MCV (81-99) fL MCH (28.0-34.0) pg MCHC (30.0-36.0) g/dL RDW (12.1-15.1) % Plt Count (130-400) 10^3/c mm MPV (7.4-10.4) fL Neut % (Auto) % Lymph % (Auto) % [place] % (Auto) % Eos % (Auto) % Baso % (Auto) % Neut # (Auto) (1.8-7.7) 10^3/u L Lymph # (Auto) (0.8-4.8) 10^3/u L [place] # (Auto) (0.2-0.9) 10^3/u L Eos # (Auto) (0.0-0.8) 10^3/u L Baso # (Auto) (0.0-0.1) 10^3/u L Nucleated RBC % (a uto) % Nucleated RBCs # /100WBC Sodium (136-145) mmol/L Potassium (3.5-5.1) mmol/L Chloride (98-107) mmol/L Carbon Dioxide (22-29) mmol/L Anion Gap (5-19) BUN (8-23) mg/dL Creatinine (0.5-0.9) mg/dL Glucose (65-115) mg/dL Calculated Osmolal ity (285-295) mOsm/k g Lactate (0.5-2.2) mmol/L Calcium (8.5-10.5) mg/dL Magnesium (1.7-2.3) mg/dL Total Bilirubin (0.15-1.2) mg/dL AST (0-32) U/L ALT (0-33) U/L Alkaline Phosphata se (35-105) IU/L Troponin T Baselin e 32 H (0-10) ng/L Troponin T 120 Min [place] 29.95 H (0-10) ng/L Delta Troponin T -2.05 L (0-10) ABS# NT-Pro-B Natriuret Pep (0-125) pg/mL Total Protein (6.6-8.7) g/dL Albumin (3.5-5.2) g/dL Globulin (1.3-4.6) g/dL EKG Data^: EKG 1: EKG interpretation date: 02/06/20 EKG interpretation time: 14:55 Interpretation: Rate is 112 with sinus tachycardia. Normal QRS and ID intervals. QTc is 368. Poor R wave progression. Other EKG comments: Chest X-Ray 02/06/20 14:34 IMPRESSION: No acute findings. Discharge Plan Discharge Patient Disposition: Home, Self-Care Clinical Impression: Tachycardia Chronic renal insufficiency Qualifiers: Chronic kidney disease stage: unspecified stage Qualified Code(s): N18.9 - Chronic kidney disease, unspecified Condition: Stable Prescriptions: Changed metoprolol tartrate 25 mg tablet 12.5 mg PO BID 30 Days Qty: 60 RF: 5 Held lisinopril 20 mg tablet 20 mg PO BID RF: 0 Hold Instructions: Resume on 01/25/21. discuss with Dr. Norton amlodipine 5 mg tablet 5 mg PO DAILY 30 Days Qty: 30 RF: 5 Hold Instructions: Resume on 01/25/21. discuss with Dr. Norton No Action metformin 500 mg tablet 500 mg PO BID RF: 0 Hold Instructions: Resume on 01/22/20. Symbicort 80-4.5 mcg/actuation HFA aerosol inhaler 2 puff INHALATION BID PRN (Reason: Shortness Of Breath) RF: 0 atorvastatin 20 mg tablet 20 mg PO DAILY RF: 0 cholecalciferol (vitamin D3) 25 mcg (1,000 unit) capsule 1,000 unit PO DAILY RF: 0 multivitamin with minerals [Hair,Skin and Nails] Tablet 1 tab PO DAILY RF: 0 Jdysmacucig-Vuodqn-U0 (C-georgi) 500-400-667 mg-mg-unit capsule 1 cap PO DAILY RF: 0 furosemide [Lasix] 20 mg tablet 20 mg PO BID RF: 0 Multiple Vitamins Tablet 1 tab PO DAILY RF: 0 albuterol sulfate 2.5 mg /3 mL (0.083 %) Solution For Nebulization 2.5 mg INHALATION Q6H PRN (Reason: Shortness Of Breath) RF: 0 Zyrtec 10 mg Tablet 10 mg PO DAILY PRN (Reason: Allergy Symptoms) RF: 0 ibuprofen 800 mg Tablet 800 mg PO Q6H PRN (Reason: Pain) RF: 0 Tylenol Extra Strength 500 mg Tablet 500 mg PO Q6H PRN (Reason: Pain) RF: 0 vitamin E 1 cap PO DAILY RF: 0 Novolin R Flexpen 100 unit/mL (3 mL) Insulin Pen See Rx Instructions .ROUTE .COMPLEX RF: 0 insulin NPH isoph U-100 human 100 unit/mL (3 mL) Insulin Pen See Rx Instructions .ROUTE .COMPLEX RF: 0 isosorbide mononitrate 30 mg tablet extended release 24 hr 30 mg PO DAILY 30 Days Qty: 30 RF: 5 Referrals: Sun Rosario MD [Primary Care Provider] - Discharge Diet: Low Salt Discharge Activity: Resume usual activity Patient Instructions: Chronic Kidney Disease (ED), Hypertension (ED) Activity Restrictions/Additional Instructions: Do not use potassium containing salt substitute. Decrease your lasix (furosemide) dose back to one tablet twice a day. Continue to hold your l isinopril and amlodipine for now and discuss them with Dr. Norton when you see him in a few weeks. Continue the other regular medications. Take half a tablet of metoprolol twice daily. Continue to limit salt in your diet to around 2 - 3 grams a day - make sure to drink enough water. Discharge Date/Time: 02/06/20 17:50 Coding Level of Care Code ED Stretch Press Operator for Radha Fwd Exam Comprehensive
[2020-02-06 16:00] VITALS: BP 142/65; PULSE 100; RESP 18; O2SAT 96
--- NOTE | 2020-02-06 16:34 | ECG_ITS ---
[facility] Test Date: 2020-02-06 Pat Name: Lacey Contreras Department: Room: Gender: Female Shucker: : 1945 Requested By: Sugey Mae Order Number: [id number] Lub[place] MD: Jose Caraballo M.D. Measurements Intervals [place] Rate: 97 P: 4 HI: 186 QRS: 6 QRSD: 78 T: 63 QT: 320 QTc: 407 Interpretive Statements SINUS RHYTHM LOW QRS VOLTAGE IN PRECORDIAL LEADS [QRS DEFLECTION < 1.0 mV IN CHEST LEADS] POSSIBLE ANTERIOR MYOCARDIAL INFARCTION , OF INDETERMINATE AGE [30 ms Q WAVE IN V3/V4, OR R < 0.2 mV IN V4] Compared to ECG 02/06/2020 14:55:12 Sinus tachycardia no longer present Myocardial infarct finding still present Electronically Signed On 02-07-2020 9:41:10 CDT by Jose Caraballo M.D. [id number]
[2020-02-06 17:00] VITALS: BP 127/79; PULSE 98; RESP 18; O2SAT 96
[2020-02-06 17:06] LABS: Troponin 5 2HR 29.95 ng/L (0-10)
[2020-02-06 17:13] LABS: Troponin 5 2HR Delta -2.05 ABS# (0-10)
[2020-02-06 17:49] VITALS: BP 127/79; PULSE 98; RESP 18; TEMP 36.8; O2SAT 96
== END 2020-02-06 17:50 | disposition home or self-care (01) ==
PROVIDERS: Emergency Provider Emergency Medicine; PCP Family Medicine
DX: R00.0 Tachycardia, unspecified (principal); N18.9 Chronic kidney disease, unspecified; I12.9 Hypertensive chronic kidney disease with stage 1 through stage 4 chronic kidney disease, or unspecified chronic kidney disease; E11.22 Type 2 diabetes mellitus with diabetic chronic kidney disease; Z79.4 Long term (current) use of insulin; J44.9 Chronic obstructive pulmonary disease, unspecified; Z87.891 Personal history of nicotine dependence
CPT/HCPCS: 12345; 36415; 71045; 80053; 83605; 83735; 83880; 84484; 85025; 93005; 96374; 96376; 99283; 99284; J3490

== ENCOUNTER → 2020-02-24 12:45 | Outpatient (BNVA) | payer MEDICARE, MEDICAID, SELFPAY | PROVIDERS: PCP Family Medicine; Visit Provider Internal Medicine Cardiovascular Disease | DX: I12.9 Hypertensive chronic kidney disease with stage 1 through stage 4 chronic kidney disease, or unspecified chronic kidney disease (principal) | CPT/HCPCS: 80048; 83735; 83880 ==

== ENCOUNTER → 2020-03-29 12:15 | Outpatient (BNVA) | payer MEDICARE, MEDICAID, SELFPAY | PROVIDERS: PCP Family Medicine; Visit Provider Internal Medicine Cardiovascular Disease | DX: I50.33 Acute on chronic diastolic (congestive) heart failure (principal); R06.02 Shortness of breath; I25.10 Atherosclerotic heart disease of native coronary artery without angina pectoris; M79.89 Other specified soft tissue disorders; I11.0 Hypertensive heart disease with heart failure; E11.65 Type 2 diabetes mellitus with hyperglycemia; Z79.4 Long term (current) use of insulin; Z87.891 Personal history of nicotine dependence | CPT/HCPCS: 80048; 83880 ==

== ENCOUNTER → 2020-04-14 11:20 | Outpatient (BNVA) | payer MEDICARE, MEDICAID, SELFPAY | PROVIDERS: PCP Nurse Practitioner Family; Visit Provider Obstetrics & Gynecology Gynecology | DX: I10 Essential (primary) hypertension (principal); I25.10 Atherosclerotic heart disease of native coronary artery without angina pectoris | CPT/HCPCS: 80048; 83880 ==

== ENCOUNTER 2020-04-21 13:50 | Emergency (ER) | payer MEDICARE, MEDICAID, SELFPAY ==
[2020-04-21] VITALS (12 sets, daily range): BP systolic 116–160; BP diastolic 54–99; PULSE 83–96; RESP 13–25; TEMP 36.8–36.9; O2SAT 90–100; BMI 41.2
--- NOTE | 2020-04-21 14:05 | ECG_ITS ---
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 Measurements Intervals [place] Rate: 86 P: 46 SC: 181 QRS: 13 QRSD: 69 T: 56 QT: 324 QTc: 388 Interpretive Statements SINUS RHYTHM LOW QRS VOLTAGE IN PRECORDIAL LEADS [QRS DEFLECTION < 1.0 mV IN CHEST LEADS] Compared to ECG 02/06/2020 16:56:39 Myocardial infarct finding no longer present Electronically Signed On 04-22-2020 16:19:55 CDT by Zully Ang M.D. [id number] f
--- NOTE | 2020-04-21 14:05 | XR_ITS ---
WS: [id number] Portable AP upright chest, 04/21/2020 Clinical Data: Chest pain Comparison: Portable chest, 02/06/2020. Findings: No nodules, masses or effusions are seen. The heart is normal. The pulmonary vascularity is not increased. No pneumonia or pneumothorax is seen. The aortic arch and descending aorta show calci fication and tortuosity. There is an electronic device overlying the T10 vertebral body. Monitor lead s are on the chest wall. There is bilateral arthritic change of the shoulders. XR/XR chest 1V portable [id number] Impression: Atherosclerosis.
[2020-04-21 14:33] LABS: Basophils % 0.2 %; Eosinophils # 0.1 10^3/uL (0.0-0.8); Hematocrit 38.9 % (37.0-47.0); Hemoglobin 12.3 g/dL (11.5-15.3); Lymphocytes # 1.4 10^3/uL (0.8-4.8); Mean Corpuscular HGB Conc 31.6 g/dL (30.0-36.0); Mean Corpuscular Hemoglobin 27.3 pg (28.0-34.0); Mean Corpuscular Volume 86.3 fL (81-99); Mean Platelet Volume 11.2 fL (7.4-10.4); Monocytes # 1.1 10^3/uL (0.2-0.9); Monocytes % 8.7 %; Neutrophils # 9.65 10^3/uL (1.8-7.7); Neutrophils % 78.8 %; Nucleated Red Blood Cells % 0 %; Platelet Count 245 10^3/cmm (130-400); Red Blood Count 4.51 10^6/uL (4.1-5.3); Red Cell Distribution Width 13.9 % (12.1-15.1); White Blood Count 12.2 10^3/uL (4.0-10.0)
[2020-04-21 14:43] LABS: INR 0.89 (0.8-1.2)
[2020-04-21 14:50] LABS: Troponin(5th) Baseline 27 ng/L (0-10)
--- NOTE | 2020-04-21 15:03 | W.ED.CHESTPA ---
HPI - Chest Pain General: Chief Complaint: Chest Pain Stated Complaint: cp Time Seen by Provider: 04/21/20 14:04 History of Present Illness: HPI narrative: This patient is a 74-year-old female who presents today with some chest pain. This started this morning and has been constant with intermittent sharp pains for like a catch when she tries to breathe. The symptoms do get worse when she exerts herself. They have never gone away completely since they began this morning. She sees Dr. Norton for her heart. She is never had a heart attack. She does have some noncritical coronary artery disease noted on a angiogram earlier this year. She is being medically managed. She also has been having problems with her kidneys as well as some CHF symptoms. She is been told that she had fluid around her heart and around her lungs. She said Dr. Norton's office called her yesterday and said they wanted to do another echocardiogram. She has swelling in her legs for the past few days. She has had swelling in her legs before but it had gone down and she was doing quite well with that until the past few days. She is having frequent urination which she feels is appropriate given her diuretics. No burning with urination. No vomiting or diarrhea. No cough or fever. She does feel short of breath with exertion. MD complaint: chest pain Pertinent past history: coronary artery disease Onset (ago): hour(s) (5) Timing of current episode: constant Prior episodes: No Onset: during rest and during exertion Pain location: substernal Pain radiation: none Quality: dull (With intermittent catch with breathing and exertion) Associated symptoms: Deny abdominal pain, dyspnea, fever(s), nausea or vomiting Review of Systems General: Reports: 10 or more systems reviewed and unremarkable except in HPI and below Const: Denies: fever(s), chills, fatigue or malaise Eyes: Denies: change in vision ENMT: Denies: odynophagia Card: Reports: chest pain; Denies: swelling of feet/ankles Resp: Denies: dyspnea, productive cough or non-productive cough GI: Denies: abdominal pain, nausea or vomiting : Denies: flank pain or difficulty voiding Musc: Denies: neck pain or back pain Skin/Breast: Denies: rash Neuro: Denies: headache(s), numbness in extremities or weakness in extremities [place]/Lymph: Denies: easy bruising or easy bleeding [facility] ED PFSH: Medical History Abnormal electrocardiogram [ECG] [EKG] Aortic valve stenosis Arthritis Atherosclerotic heart disease of [place] coronary artery without angina pectoris Atypical chest pain EKG done on 15 March 2019 revealed a sinus rhythm with poor however progression. Minimal left axis deviation. No acute ST-T changes. These findings are essentially unchanged from 2017. COPD (chronic obstructive pulmonary disease) Diabetes Dyspnea and respiratory abnormalities HTN (hypertension) Leg swelling SOB (shortness of breath) Surgical History H/O section S/P cholecystectomy Family History Father , of [place] at 77, started in his 40s No problems noted. Mother , Had CABG in the 70s No problems noted. Grandfather , of [place] in the 70s No problems noted. Sister Atrial fibrillation Social History Smoking and tobacco status: former smoker Physical Exam Const: COMMON NORMALS: no acute distress, patient oriented x3, no limitations and alert GENERAL APPEARANCE: cooperative and comfortable HENMT: HEAD & SCALP: normal to inspection FACE & SINUS: normal facial exam Eye: GENERAL EYE: appearance normal, both eyes and all related structures Neck/C-Spine: COMMON NORMALS: supple, no meningeal signs and no JVD Chest: COMMONS NORMALS: normal inspection of the chest Resp: COMMON NORMALS: normal respiratory effort, No use of accessory muscles and clear to auscultation bilaterally AUSCULTATION: clear to auscultation bilaterally Cardio: COMMON NORMALS: no JVD, regular rate, regular rhythm and No murmurs present (Cardio) RATE: regular rate RHYTHM: regular rhythm GI: COMMON NORMALS: Normal to inspection, nondistended, normoactive bowel sounds present, Soft to palpation and non-tender INSPECTION: Yes normal to inspection AUSCULTATION: Yes normoactive bowel sounds PALPATION: Yes Soft to palpation Back/Pelvis: COMMON NORMALS: thoracic and lumbar spine normal to inspection Extremity: COMMON NORMALS: normal to inspection Neuro: COMMON NORMALS: patient oriented x3, moves all extremities, no focal motor deficits and no sensory deficits noted SENSORIUM/ORIENTATION: Yes alert MENINGEAL SIGNS: Yes no meningeal signs Psych: COMMON NORMALS: mental status grossly normal, cooperative and normal affect Skin: COMMON NORMALS: no rashes or lesions noted and turgor normal GENERAL SKIN EXAM: no rashes or lesions noted and turgor normal Course ED course: Work-up in the ER is fairly unremarkable. Her kidney function is good today. She is a little hyperglycemic. CT the chest was done to rule out a PE and that was negative. Unfortunately she had extravasation of the CT contrast into her right arm on the initial attempt. This was treated with compresses and the patient will continue doing this at home. Overall I do not think she needs any adjustment in her medications or anything at this time. She is supposed to be getting an outpatient echo for Dr. Norton and she will make sure that that gets scheduled. Vital Signs: Vital signs: Vital Signs Temperature 98.4 F 04/21/20 21:18 Pulse Rate 95 04/21/20 21:18 Respiratory Rate 13 04/21/20 21:18 Blood Pressure 145/65 04/21/20 21:18 Pulse Oximetry 97 04/21/20 21:18 MDM - Chest Pain Lab Data: Labs: Lab Results 04/21/20 04/21/20 04/21/20 Range/Units 14:23 14:23 14:23 WBC 12.2 H (4.0-10.0) 10^3/ uL RBC 4.51 (4.1-5.3) 10^6/u L Hgb 12.3 (11.5-15.3) g/dL Hct 38.9 (37.0-47.0) % MCV 86.3 (81-99) fL MCH 27.3 L (28.0-34.0) pg MCHC 31.6 (30.0-36.0) g/dL RDW 13.9 (12.1-15.1) % Plt Count 245 (130-400) 10^3/c mm MPV 11.2 H (7.4-10.4) fL Neut % (Auto) 78.8 % Lymph % (Auto) 11.0 % [place] % (Auto) 8.7 % Eos % (Auto) 1.0 % Baso % (Auto) 0.2 % Neut # (Auto) 9.65 H (1.8-7.7) 10^3/u L Lymph # (Auto) 1.4 (0.8-4.8) 10^3/u L [place] # (Auto) 1.1 H (0.2-0.9) 10^3/u L Eos # (Auto) 0.1 (0.0-0.8) 10^3/u L Baso # (Auto) 0.0 (0.0-0.1) 10^3/u L Nucleated RBC % (a uto) 0 % Nucleated RBCs # 0.0 /100WBC PT 12.30 (12.1-14.9) SECO NDS INR 0.89 (0.8-1.2) Sodium 135 L (136-145) mmol/L Potassium 4.7 (3.5-5.1) mmol/L Chloride 92 L (98-107) mmol/L Carbon Dioxide 29 (22-29) mmol/L Anion Gap 18.7 (5-19) BUN 24 H (8-23) mg/dL Creatinine 1.1 H (0.5-0.9) mg/dL GFR Calculation Not Reportable Glucose 231 H (65-115) mg/dL Calculated Osmolal ity 284 L (285-295) mOsm/k g Calcium 9.7 (8.5-10.5) mg/dL Total Bilirubin 0.9 (0.15-1.2) mg/dL AST 22 (0-32) U/L ALT 17 (0-33) U/L Alkaline Phosphata se 109 H (35-105) IU/L Troponin T Baselin e (0-10) ng/L Troponin T 120 Min amy (0-10) ng/L Delta Troponin T (0-10) ABS# NT-Pro-B Natriuret Pep 505 H (0-125) pg/mL Total Protein 7.8 (6.6-8.7) g/dL Albumin 4.5 (3.5-5.2) g/dL Globulin 3.3 (1.3-4.6) g/dL Lipase 52 (13-60) U/L 04/21/20 04/21/20 Range/Units 14:23 16:42 WBC (4.0-10.0) 10^3/ uL RBC (4.1-5.3) 10^6/u L Hgb (11.5-15.3) g/dL Hct (37.0-47.0) % MCV (81-99) fL MCH (28.0-34.0) pg MCHC (30.0-36.0) g/dL RDW (12.1-15.1) % Plt Count (130-400) 10^3/c mm MPV (7.4-10.4) fL Neut % (Auto) % Lymph % (Auto) % [place] % (Auto) % Eos % (Auto) % Baso % (Auto) % Neut # (Auto) (1.8-7.7) 10^3/u L Lymph # (Auto) (0.8-4.8) 10^3/u L [place] # (Auto) (0.2-0.9) 10^3/u L Eos # (Auto) (0.0-0.8) 10^3/u L Baso # (Auto) (0.0-0.1) 10^3/u L Nucleated RBC % (a uto) % Nucleated RBCs # /100WBC PT (12.1-14.9) SECO NDS INR (0.8-1.2) Sodium (136-145) mmol/L Potassium (3.5-5.1) mmol/L Chloride (98-107) mmol/L Carbon Dioxide (22-29) mmol/L Anion Gap (5-19) BUN (8-23) mg/dL Creatinine (0.5-0.9) mg/dL GFR Calculation Glucose (65-115) mg/dL Calculated Osmolal ity (285-295) mOsm/k g Calcium (8.5-10.5) mg/dL Total Bilirubin (0.15-1.2) mg/dL AST (0-32) U/L ALT (0-33) U/L Alkaline Phosphata se (35-105) IU/L Troponin T Baselin e 27 H (0-10) ng/L Troponin T 120 Min amy 22.86 H (0-10) ng/L Delta Troponin T -4.14 L (0-10) ABS# NT-Pro-B Natriuret Pep (0-125) pg/mL Total Protein (6.6-8.7) g/dL Albumin (3.5-5.2) g/dL Globulin (1.3-4.6) g/dL Lipase (13-60) U/L Discharge Plan Discharge Patient Disposition: Home Clinical Impression: Chest pain Qualifiers: Chest pain type: unspecified Qualified Code(s): R07.9 - Chest pain, unspecified Condition: Stable Prescriptions: No Action Symbicort 80-4.5 mcg/actuation HFA aerosol inhaler 2 puff INHALATION BID PRN (Reason: Shortness Of Breath) RF: 0 atorvastatin 20 mg tablet 20 mg PO DAILY RF: 0 cholecalciferol (vitamin D3) 25 mcg (1,000 unit) capsule 1,000 unit PO DAILY RF: 0 Sishgteadci-Rxilut-V7 (C-georgi) 500-400-667 mg-mg-unit capsule 1 cap PO DAILY RF: 0 furosemide [Lasix] 20 mg tablet 20 mg PO BID RF: 0 potassium chloride 10 mEq capsule, extended release 10 meq PO BID Qty: 60 RF: 3 multivitamin [Multiple Vitamins] Tablet 1 tab PO DAILY RF: 0 albuterol sulfate 2.5 mg /3 mL (0.083 %) Solution For Nebulization 2.5 mg INHALATION Q6H PRN (Reason: Shortness Of Breath) RF: 0 cetirizine [Zyrtec] 10 mg Tablet 10 mg PO DAILY PRN (Reason: Allergy Symptoms) RF: 0 ibuprofen 800 mg Tablet 800 mg PO Q6H PRN (Reason: Pain) RF: 0 acetaminophen [Tylenol Extra Strength] 500 mg Tablet 1,000 mg PO BEDTIME RF: 0 vitamin E 1 cap PO DAILY RF: 0 metformin 500 mg tablet 500 mg PO BID RF: 0 Novolin R Regular U-100 Insuln 100 unit/mL solution See Rx Instructions .ROUTE .COMPLEX RF: 0 metoprolol tartrate 25 mg tablet 25 mg PO BID RF: 0 insulin NPH isoph U-100 human 100 unit/mL (3 mL) Insulin Pen See Rx Instructions .ROUTE .COMPLEX RF: 0 isosorbide mononitrate 30 mg tablet extended release 24 hr 30 mg PO DAILY 30 Days Qty: 30 RF: 5 Discharge Orders: Discharge Order (Routine); Ordered 04/21/20 Ordered By: Sugey Dowell Referrals: Denise Leon, REGULATORY CONSULTANT [Primary Care Provider] - Discharge Diet: Usual diet Discharge Activity: Resume usual activity Patient Instructions: Chest Pain (ED) Activity Restrictions/Additional Instructions: Return to the emergency department if new or worse symptoms. Follow-up with your primary care doctor and residential construction instructor for further evaluation. If you do not hear from Dr. Norton's office about the echocardiogram within a week call them to make the appointment. Discharge Date/Time: 04/21/20 21:18 Coding Level of Care Code ED Recruiting And Selection Consultant for Chg Fwd Exam Comprehensive
--- NOTE | 2020-04-21 16:05 | ECG_ITS ---
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 Measurements Intervals [place] Rate: 83 P: 65 VT: 178 QRS: 9 QRSD: 71 T: 71 QT: 333 QTc: 393 Interpretive Statements SINUS RHYTHM LOW QRS VOLTAGE IN PRECORDIAL LEADS [QRS DEFLECTION < 1.0 mV IN CHEST LEADS] SEPTAL MYOCARDIAL INFARCTION , PROBABLY OLD [40+ ms Q WAVE IN V1/V2] Compared to ECG 02/06/2020 16:56:39 No significant changes Electronically Signed On 04-22-2020 16:21:49 CDT by Zully Ang M.D. [id number]
[2020-04-21 17:32] LABS: Alanine Aminotransferase 17 U/L (0-33); Albumin Level 4.5 g/dL (3.5-5.2); Alkaline Phosphatase 109 IU/L (35-105); Blood Urea Nitrogen 24 mg/dL (8-23); Calcium 9.7 mg/dL (8.5-10.5); Carbon Dioxide 29 mmol/L (22-29); Chloride 92 mmol/L (98-107); Globulin 3.3 g/dL (1.3-4.6); Glucose 231 mg/dL (65-115); Lipase 52 U/L (13-60); NT Pro B Type Natriuretic Pept 505 pg/mL (0-125); Osmolality Calculated 284 mOsm/kg (285-295); Sodium 135 mmol/L (136-145); Total Bilirubin 0.9 mg/dL (0.15-1.2); Total Protein 7.8 g/dL (6.6-8.7)
[2020-04-21 17:34] LABS: Troponin 5 2HR 22.86 ng/L (0-10)
[2020-04-21 17:38] LABS: Troponin 5 2HR Delta -4.14 ABS# (0-10)
[2020-04-21 17:38] LABS: Anion Gap 18.7 (5-19); Aspartate Amino Transferase 22 U/L (0-32); Potassium 4.7 mmol/L (3.5-5.1)
--- NOTE | 2020-04-21 17:46 | CTR_ITS ---
PROCEDURE INFORMATION: Exam: CT Angiography Chest With Contrast Exam date and time: 04/21/2020 5:52 PM Age: 74 years old Clinical indication: Left-sided chest pain; Patient HX: C/O L sided cp; Additional info: Chest pain, SOB TECHNIQUE: Imaging protocol: Computed tomographic angiography of the chest with intravenous contrast. 3D rendering (Not supervised by radiologist): MIP and/or 3D reconstructed images were created by the technologist. Radiation optimization: All CT scans at this facility use at least one of these dose optimization techniques: automated exposure control; mA and/or kV adjustment per patient size (includes targeted exams where dose is matched to clinical indication); or iterative reconstruction. Contrast material: VISI 320; Contrast volume: 95 ml; Contrast route: INTRAVENOUS (IV); COMPARISON: CR XR chest 1V portable [id number] 04/21/2020 2:06 PM RADIATION DOSE METRICS: Total DLP (mGy-cm): 578.54 FINDINGS: Pulmonary arteries: There is no pulmonary embolus. Aorta: Unremarkable. No aortic aneurysm. No aortic dissection. Lungs: There is trace ground-glass opacity in the lungs compatible with very mild pneumonitis versus edema. No lobar consolidation. There is a 5 mm ground-glass nodule left lower lobe series 2, image 302. There is a 7 mm ground-glass nodule left costophrenic angle image 329. There is a 5 mm ground-glass nodule left lung image 275. There is a 3 mm ground-glass nodule right lower lobe image 245. Several additional smaller ground-glass nodules are noted in both lungs. Pleural space: Unremarkable. No pneumothorax. No pleural effusion. Heart: There is a small pericardial fluid collection present. Mediastinal space: A small hiatal hernia is present. Lymph nodes: Unremarkable. No enlarged lymph nodes. Liver: There is a diffuse decrease in hepatic parenchymal density, consistent with fatty infiltration. Kidneys and ureters: There is a 1.4 cm midpole simple cyst in the left kidney. No follow-up is necessary. Bones/joints: There are moderate degenerative changes in the spine. Soft tissues: Unremarkable. CT/CT angio chest PE protcl [id number] IMPRESSION: 1. There is no pulmonary embolus. 2. There is trace ground-glass opacity in the lungs compatible with very mild pneumonitis versus edema. 3. Multiple ground-glass nodules are noted in the lungs a measuring up to 7 mm in size left lower lobe.Recommend CT at 3-6 months. Subsequent management based on the most suspicious nodule(s). (Lj et al., Fleischner Society, 2017) COMMENTS: Consistent with the [place]'s Incidental Findings Committee white paper (J Am Corin Radiol 2018): Any incidental renal lesion less than 1 cm or classified as too small to characterize, or any incidental cystic renal lesion characterized as simple-appearing, is likely benign. No follow-up imaging is recommended for these lesions per consensus recommendations based on imaging criteria. Radiation Dose CTDIVOL = (mGy): DLP = 578.54 (mGy-cm)
[2020-04-21] MEDS: iodixanol 320 mg/mL 100mL Btl IV (19:58)
== END 2020-04-21 21:18 | disposition home or self-care (01) ==
PROVIDERS: Emergency Provider Emergency Medicine; PCP Nurse Practitioner Family
DX: R07.9 Chest pain, unspecified (principal); Z79.4 Long term (current) use of insulin; J44.9 Chronic obstructive pulmonary disease, unspecified; E11.9 Type 2 diabetes mellitus without complications; I10 Essential (primary) hypertension; Z87.891 Personal history of nicotine dependence
CPT/HCPCS: 12345; 36415; 71045; 71275; 80053; 83690; 83880; 84484; 85025; 85610; 93005; 99283; 99284; Q9967

== ENCOUNTER 2020-05-30 09:41 | Outpatient (CLI) | payer MEDICARE, MEDICAID, SELFPAY ==
--- NOTE | 2020-05-30 10:15 | USCV_ITS ---
Diane Lacey Age: 74 Gender: F : 1945 Exam Date: 05/30/2020 10:16 Ordering Phys: Andriy Norton MD ([email or web address]) Technologist: Elan Deleon [place] [facility] [place]: CHF BP: 130 / 68 HR: 75 Rhythm: Sinus Technical Quality: Adequate MEASUREMENTS (Male / Female) Normal Values 2D ECHO LV Diastolic Diameter PLAX 3.5 cm 4.2 - 5.9 / 3.9 - 5.3 cm LV Systolic Diameter PLAX 2.0 cm IVS Diastolic Thickness 0.9 cm 0.6 - 1.0 / 0.6 - 0.9 cm IVS Systolic Thickness 1.3 cm LVPW Diastolic Thickness 1.3 cm 0.6 - 1.0 / 0.6 - 0.9 cm LVPW Systolic Thickness 1.2 cm LVOT Diameter 2.0 cm LV Ejection Fraction 2D Teich 71.3 % LV Ejection Fraction MOD 2C 74.1 % LV Ejection Fraction 2C AL 73.6 % LA Diameter 4.2 cm LA Width 3.5 cm LA Height 5.3 cm RA Width 3.0 cm RA Height 4.5 cm Aorta at Sinotubular Diameter 1.3 cm M-MODE LV Diastolic Diameter MM 3.6 cm 4.2 - 5.9 / 3.9 - 5.3 cm LV Systolic Diameter MM 2.3 cm LV Ejection Fraction MM Teich 67.8 % IVS Diastolic Thickness MM 1.3 cm 0.6 - 1.0 / 0.6 - 0.9 cm IVS Systolic Thickness MM 1.4 cm LVPW Diastolic Thickness MM 1.6 cm 0.6 - 1.0 / 0.6 - 0.9 cm LVPW Systolic Thickness MM 1.9 cm RV Diastolic Diameter MM 2.5 cm MV E Point Septal Separation 0.7 cm DOPPLER AV Peak Velocity 184.0 cm/s LVOT Peak Velocity 96.0 cm/s AV Area Cont Eq vti 2.0 cm squared AV Area Cont Eq pk 1.7 cm squared MV Area PHT 5.0 cm squared Mitral E to A Ratio 1.3 MV E' Velocity 173.0 cm/s TR Peak Velocity 158.5 cm/s TR Peak Gradient 10.0 mmHg TV Peak E Velocity 63.0 cm/s Right Atrial Pressure 3.0 mmHg Pulmonary Artery Systolic Pressu 13.0 mmHg FINDINGS Left Ventricle Normal left ventricular size and systolic function, EF 69 %. Segmental wall motion analysis difficult because of the poor ultrasonic window. Right Ventricle Right ventricle not well visualized. Right Atrium Right atrium not well visualized. Left Atrium Mildly increased left atrial size. Mitral Valve Moderate to heavy mitral annular calcification Aortic Valve Thickened aortic valve. Tricuspid Valve Tricuspid valve not well visualized. Pulmonic Valve Pulmonic valve not well visualized. Pericardium No pericardial effusion. Aorta Normal aortic annulus size. CONCLUSIONS Normal left ventricular size and systolic function, EF 69 %. Segmental wall motion analysis difficult because of the poor ultrasonic window. Type I diastolic dysfunction. Mildly increased left atrial size. Moderate to heavy mitral annular calcification. Thickened aortic valve. There is no pericardial effusion. Technically difficult study because of the poor ultrasonic window. Dr Andriy Norton MD FACC (Electronically Signed) Final Date: 30 May 2020 20:10 S
== END 2020-05-30 09:42 | disposition home or self-care (01) ==
LOC: RAD 09:44
PROVIDERS: PCP Nurse Practitioner Family; Visit Provider Internal Medicine Cardiovascular Disease
DX: I50.9 Heart failure, unspecified (principal); I08.0 Rheumatic disorders of both mitral and aortic valves
CPT/HCPCS: 93306

== ENCOUNTER → 2020-07-20 11:44 | Outpatient (BNVA) | payer MEDICARE, MEDICAID, SELFPAY | PROVIDERS: PCP Nurse Practitioner Family; Visit Provider Internal Medicine Cardiovascular Disease | DX: I50.33 Acute on chronic diastolic (congestive) heart failure (principal); R06.02 Shortness of breath; I10 Essential (primary) hypertension; E11.9 Type 2 diabetes mellitus without complications; J44.9 Chronic obstructive pulmonary disease, unspecified | CPT/HCPCS: 80048; 83880 ==

== ENCOUNTER → 2020-07-27 13:33 | Outpatient (BNVA) | payer MEDICARE, MEDICAID, SELFPAY | PROVIDERS: PCP Nurse Practitioner Family; Visit Provider Internal Medicine Cardiovascular Disease | DX: R07.89 Other chest pain (principal); E87.5 Hyperkalemia | CPT/HCPCS: 80048; 83880 ==

== ENCOUNTER 2020-10-26 09:31 | Outpatient (CLI) | payer MEDICARE, MEDICAID, SELFPAY | END 2020-10-26 09:32 | disposition home or self-care (01) | LOC: WOUND 09:32 | PROVIDERS: Visit Provider Nurse Practitioner Family | DX: E11.622 Type 2 diabetes mellitus with other skin ulcer (principal); L97.822 Non-pressure chronic ulcer of other part of left lower leg with fat layer exposed | CPT/HCPCS: 29581; 87070; 87077; 87176; 87186; 87205; G0463 ==

== ENCOUNTER 2020-10-30 07:55 | Outpatient (CLI) | payer MEDICARE, MEDICAID, SELFPAY | END 2020-10-30 07:56 | disposition home or self-care (01) | LOC: WOUND 07:57 | PROVIDERS: Visit Provider Nurse Practitioner Family | DX: E11.622 Type 2 diabetes mellitus with other skin ulcer (principal); L97.822 Non-pressure chronic ulcer of other part of left lower leg with fat layer exposed | CPT/HCPCS: 29581 ==

== ENCOUNTER 2020-11-02 09:27 | Outpatient (CLI) | payer MEDICARE, MEDICAID, SELFPAY | END 2020-11-02 09:28 | disposition home or self-care (01) | LOC: WOUND 09:27 | PROVIDERS: Visit Provider Nurse Practitioner Family | DX: E11.622 Type 2 diabetes mellitus with other skin ulcer (principal); L97.822 Non-pressure chronic ulcer of other part of left lower leg with fat layer exposed; I96 Gangrene, not elsewhere classified; Z87.891 Personal history of nicotine dependence | CPT/HCPCS: 11042 ==

== ENCOUNTER → 2020-11-06 11:51 | Outpatient (BNVA) | payer MEDICARE, MEDICAID, SELFPAY | PROVIDERS: PCP Nurse Practitioner Family; Visit Provider Internal Medicine Cardiovascular Disease | DX: I50.33 Acute on chronic diastolic (congestive) heart failure (principal); R06.02 Shortness of breath; L98.499 Non-pressure chronic ulcer of skin of other sites with unspecified severity; M79.89 Other specified soft tissue disorders | CPT/HCPCS: 80048; 83880; 85379 ==

== ENCOUNTER 2020-11-09 09:42 | Outpatient (CLI) | payer MEDICARE, MEDICAID, SELFPAY | END 2020-11-09 09:43 | disposition home or self-care (01) | LOC: WOUND 09:45 | PROVIDERS: PCP Nurse Practitioner Family; Visit Provider Nurse Practitioner Family | DX: E11.622 Type 2 diabetes mellitus with other skin ulcer (principal); L97.822 Non-pressure chronic ulcer of other part of left lower leg with fat layer exposed; I96 Gangrene, not elsewhere classified; Z87.891 Personal history of nicotine dependence | CPT/HCPCS: 11042 ==

== ENCOUNTER 2020-11-16 09:08 | Outpatient (CLI) | payer MEDICARE, MEDICAID, SELFPAY | END 2020-11-16 09:09 | disposition home or self-care (01) | LOC: WOUND 09:14 | PROVIDERS: PCP Nurse Practitioner Family; Visit Provider Nurse Practitioner Family | DX: E11.622 Type 2 diabetes mellitus with other skin ulcer (principal); L97.821 Non-pressure chronic ulcer of other part of left lower leg limited to breakdown of skin; L97.812 Non-pressure chronic ulcer of other part of right lower leg with fat layer exposed; L89.303 Pressure ulcer of unspecified buttock, stage 3 | CPT/HCPCS: 11042 ==

== ENCOUNTER 2020-11-20 06:00 | Outpatient (RCR) | payer MEDICARE, MEDICAID, SELFPAY | END 2020-12-08 23:59 | disposition home or self-care (01) | LOC: SPT 06:00 | PROVIDERS: PCP Nurse Practitioner Family; Referring Provider Nurse Practitioner Family; Visit Provider Nurse Practitioner Family | DX: I89.0 Lymphedema, not elsewhere classified (principal) | CPT/HCPCS: 29581; 97161 ==

== ENCOUNTER 2020-11-23 09:42 | Outpatient (CLI) | payer MEDICARE, MEDICAID, SELFPAY | END 2020-11-23 09:43 | disposition home or self-care (01) | LOC: WOUND 09:44 | PROVIDERS: PCP Nurse Practitioner Family; Visit Provider Nurse Practitioner Family | DX: E11.622 Type 2 diabetes mellitus with other skin ulcer (principal); L97.822 Non-pressure chronic ulcer of other part of left lower leg with fat layer exposed; L97.812 Non-pressure chronic ulcer of other part of right lower leg with fat layer exposed; L89.303 Pressure ulcer of unspecified buttock, stage 3 | CPT/HCPCS: 99214 ==

== ENCOUNTER 2020-11-25 12:03 | Emergency (ER) | payer MEDICARE, MEDICAID, SELFPAY ==
[2020-11-25 12:13] VITALS: BP 151/76; PULSE 82; RESP 18; TEMP 36.3; O2SAT 99; BMI 43.6
[2020-11-25 13:18] VITALS: BP 137/64; PULSE 78; O2SAT 96
--- NOTE | 2020-11-25 13:26 | USR_ITS ---
PROCEDURE INFORMATION: Exam: US Duplex Lower Extremity Veins, Bilateral Exam date and time: 11/25/2020 1:37 PM Age: 75 years old Clinical indication: Swelling (edema) of limb; Lower extremity, bilateral; Additional info: Leg swelling TECHNIQUE: Imaging protocol: Real-time duplex ultrasound of the extremities with 2-D alford scale, color Doppler flow and spectral waveform analysis with image documentation. Complete exam focused on the bilateral lower extremity veins. COMPARISON: No relevant prior studies available. FINDINGS: Limited examination secondary to leg wounds. Right deep veins: Unremarkable. The common femoral, femoral, proximal profunda femoral and popliteal veins are patent without thrombus. Normal Doppler waveforms. Normal compressibility and/or augmentation response. Right superficial veins: Saphenofemoral junction is patent without thrombus. Left deep veins: Unremarkable. The common femoral, femoral, proximal profunda femoral and popliteal veins are patent without thrombus. Normal Doppler waveforms. Normal compressibility and/or augmentation response. Left superficial veins: Saphenofemoral junction is patent without thrombus. Soft tissues: Unremarkable. US/CV venous duplex [facility] [id number] IMPRESSION: No evidence of deep vein thrombosis.
--- NOTE | 2020-11-25 13:27 | XRR_ITS ---
PROCEDURE INFORMATION: Exam: XR Chest Exam date and time: 11/25/2020 1:47 PM Age: 75 years old Clinical indication: Cough and dyspnea; Additional info: Dyspnea/cough TECHNIQUE: Imaging protocol: XR of the chest. Views: 1 view. COMPARISON: CR XR chest 1V portable [id number] 04/21/2020 2:06 PM FINDINGS: Lungs: There is a hazy retrocardiac opacity, which may represent atelectasis or pneumonia in the adequate clinical setting. Pleural spaces: Unremarkable. No pleural effusion. No pneumothorax. Heart/Mediastinum: Stable cardiomediastinal silhouette. Bones/joints: Degenerative changes of the spine and shoulder joint seen. XR/XR chest 1V portable [id number] IMPRESSION: Left lower lobe atelectasis versus pneumonia, clinical correlation is recommended.
--- NOTE | 2020-11-25 13:41 | ED_ITS ---
HPI - Extremity Problem General: Chief complaint: Extremity Problem,Nontraumatic Stated complaint: BLE SWELLING Time Seen by Provider: 11/25/20 13:25 History of Present Illness: HPI Narrative: 75-year-old female presents emergency room with complaints of swelling and irritation. She has sores on her legs been seeing the wound clinic. She was sent over 2 days ago evidently to be admitted but left because of perceived weight. Patient is diabetic. She not had any fever sweats chills she currently is on oral antibiotics. MD Complaint: extremity swelling Onset (ago): month(s) Pain Consistency: constant Location: left, right and lower extremity Quality: aching Radiation: none Relieving factors: immobilization, elevation and rest Exacerbating factors: weight bearing, walking and palpation Associated symptoms: Deny arthralgias, chest pain, fever(s), myalgias, rash or short of breath Review of Systems Const: Denies: fever(s) ENMT: Denies: throat pain, ear or mastoid pain, nasal discharge or nasal congestion Card: Denies: chest pain Resp: Denies: dyspnea, productive cough or non-productive cough GI: Denies: abdominal pain, nausea, vomiting, hematemesis, coffee ground emesis, diarrhea, constipation, bloating, hematochezia or melena : Denies: flank pain, difficulty voiding, dysuria, urinary frequency or urinary urgency Skin/Breast: Denies: rash PFSH ED PFSH: Medical History Abnormal electrocardiogram [ECG] [EKG] Aortic valve stenosis Arthritis 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 Minimal left axis deviation. No acute ST-T changes. These findings are essentially unchanged from 2017. COPD (chronic obstructive pulmonary disease) Diabetes Dyspnea and respiratory abnormalities HTN (hypertension) Leg swelling SOB (shortness of breath) Surgical History H/O section S/P cholecystectomy Family History Father , of [place] at 77, started in his 40s CAD (coronary artery disease) Diabetes Mother , Had CABG in the 70s CAD (coronary artery disease) Cancer Grandfather , of AR in the 70s Dementia Lung disease Stroke Sister Atrial fibrillation Grandmother Clotting disorder Diabetes Brother Cancer Family/Other Chronic kidney disease (CKD) Diabetes Stroke Suicide Denies family history of Anesthesia complication Bleeding disorder Social History Smoking and tobacco status: former smoker Alcohol intake: never Physical Exam Const: COMMON NORMALS: no acute distress GENERAL APPEARANCE: cooperative and comfortable ORIENTATION/CONSCIOUSNESS: Yes awake, Yes oriented to person, Yes oriented to place and Yes oriented to time HENMT: COMMON NORMALS: normocephalic, atraumatic and hearing grossly normal bilaterally HEAD & SCALP: normocephalic and atraumatic Neck/C-Spine: COMMON NORMALS: no JVD Resp: COMMON NORMALS: normal respiratory effort, No retractions, No use of accessory muscles and clear to auscultation bilaterally AUSCULTATION: clear to auscultation bilaterally Cardio: COMMON NORMALS: no JVD, regular rate, regular rhythm and No murmurs present (Cardio) RATE: regular rate RHYTHM: regular rhythm GI: COMMON NORMALS: Soft to palpation and No hepatosplenomegaly present AUSCULTATION: Yes normoactive bowel sounds PALPATION: Yes Soft to palpation, No Tenderness to palpation present (GI), No Guarding due to palpation present (GI) and Yes No hepatosplenomegaly present Extremity: NARRATIVE EXTREMITY EXAM: Swelling and edema with superficial sloughing of the skin some serous drainage no full-thickness ulcerations on lower extremities there is a partial-thickness decub ulcer over the sacrum. No redness or induration on any of these areas no purulent drainage no sign of abscess. Neuro: SENSORIUM/ORIENTATION: Yes oriented to person, Yes oriented to place and Yes oriented to time Skin: COMMON NORMALS: no rashes or lesions noted GENERAL SKIN EXAM: no rashes or lesions noted Course Vital Signs: Vital signs: Vital Signs Temperature 98.1 F 11/25/20 17:12 Pulse Rate 76 11/25/20 17:12 Respiratory Rate 18 11/25/20 12:13 Blood Pressure 118/46 11/25/20 17:12 Pulse Oximetry 98 11/25/20 17:12 MDM - Extremity (Nontraumatic) MDM Narrative: Medical decision making narrative: No significant signs of infection at this time. Patient was evidently referred here 2 days ago with anticipation of being admitted she left without being seen at that time her renal function is up a little bit however I think she does continue to need diuretics given the swelling she does have in her legs. I do not think she needs admitted for any IV antibiotics we should continue her doxycycline we will have her hold off on her spironolactone and her Metformin due to renal function. Recommend she follow-up within the next 4 to 5 days. Return if has further problems. Lab Data: Labs: Lab Results 11/25/20 11/25/20 11/25/20 Range/Units 14:30 14:30 15:44 WBC 10.7 H (4.0-10.0) 10^3/ uL RBC 3.74 L (4.1-5.3) 10^6/u L Hgb 10.6 L (11.5-15.3) g/dL Hct 34.1 L (37.0-47.0) % MCV 91.2 (81-99) fL MCH 28.3 (28.0-34.0) pg MCHC 31.1 (30.0-36.0) g/dL RDW 15.5 H (12.1-15.1) % Plt Count 303 (130-400) 10^3/c mm MPV 11.2 H (7.4-10.4) fL Neut % (Auto) 70.6 % Lymph % (Auto) 17.4 % [place] % (Auto) 7.8 % Eos % (Auto) 3.7 % Baso % (Auto) 0.3 % Neut # (Auto) 7.57 (1.8-7.7) 10^3/u L Lymph # (Auto) 1.9 (0.8-4.8) 10^3/u L [place] # (Auto) 0.8 (0.2-0.9) 10^3/u L Eos # (Auto) 0.4 (0.0-0.8) 10^3/u L Baso # (Auto) 0.0 (0.0-0.1) 10^3/u L Nucleated RBC % (a uto) 0 % Nucleated RBCs # 0.0 /100WBC Sodium 138 (136-145) mmol/L Potassium 4.5 (3.5-5.1) mmol/L Chloride 96 L (98-107) mmol/L Carbon Dioxide 29 (22-29) mmol/L Anion Gap 17.5 (5-19) BUN 66 H (8-23) mg/dL Creatinine 1.5 H (0.5-0.9) mg/dL GFR Calculation Not Reportable Glucose 159 H (65-115) mg/dL POC Glucose (70-110) mg/dL Calculated Osmolal ity 308 H (285-295) mOsm/k g Calcium 9.1 (8.5-10.5) mg/dL Total Bilirubin 0.6 (0.15-1.2) mg/dL AST 15 (0-32) U/L ALT 13 (0-33) U/L Alkaline Phosphata se 113 H (35-105) IU/L Total Protein 6.8 (6.6-8.7) g/dL Albumin 3.9 (3.5-5.2) g/dL Globulin 2.9 (1.3-4.6) g/dL Urine Color Yellow (Yellow) Urine Appearance Clear (CLEAR) Urine pH 5 (5-7) Ur Specific Gravit y 1.020 (1.005-1.030) Urine Protein Neg (Negative) Urine Glucose (UA) Norm (Normal) Urine Ketones Negative (Negative) Urine Blood Neg (Negative) Urine Nitrate Negative (Negative) Urine Bilirubin Neg (Negative) Urine Urobilinogen Norm (Negative) mg/dL Ur Leukocyte Sabine ase Negative (Negative) 11/25/20 Range/Units 15:52 WBC (4.0-10.0) 10^3/ uL RBC (4.1-5.3) 10^6/u L Hgb (11.5-15.3) g/dL Hct (37.0-47.0) % MCV (81-99) fL MCH (28.0-34.0) pg MCHC (30.0-36.0) g/dL RDW (12.1-15.1) % Plt Count (130-400) 10^3/c mm MPV (7.4-10.4) fL Neut % (Auto) % Lymph % (Auto) % [place] % (Auto) % Eos % (Auto) % Baso % (Auto) % Neut # (Auto) (1.8-7.7) 10^3/u L Lymph # (Auto) (0.8-4.8) 10^3/u L [place] # (Auto) (0.2-0.9) 10^3/u L Eos # (Auto) (0.0-0.8) 10^3/u L Baso # (Auto) (0.0-0.1) 10^3/u L Nucleated RBC % (a uto) % Nucleated RBCs # /100WBC Sodium (136-145) mmol/L Potassium (3.5-5.1) mmol/L Chloride (98-107) mmol/L Carbon Dioxide (22-29) mmol/L Anion Gap (5-19) BUN (8-23) mg/dL Creatinine (0.5-0.9) mg/dL GFR Calculation Glucose (65-115) mg/dL POC Glucose 166 H (70-110) mg/dL Calculated Osmolal ity (285-295) mOsm/k g Calcium (8.5-10.5) mg/dL Total Bilirubin (0.15-1.2) mg/dL AST (0-32) U/L ALT (0-33) U/L Alkaline Phosphata se (35-105) IU/L Total Protein (6.6-8.7) g/dL Albumin (3.5-5.2) g/dL Globulin (1.3-4.6) g/dL Urine Color (Yellow) Urine Appearance (CLEAR) Urine pH (5-7) Ur Specific Gravit y (1.005-1.030) Urine Protein (Negative) Urine Glucose (UA) (Normal) Urine Ketones (Negative) Urine Blood (Negative) Urine Nitrate (Negative) Urine Bilirubin (Negative) Urine Urobilinogen (Negative) mg/dL Ur Leukocyte Sabine ase (Negative) Discharge Plan Discharge Patient Disposition: Home Clinical Impression: Non-healing ulcer, ABDIRAHMAN (acute kidney injury), Chronic kidney disease Condition: Stable Prescriptions: New doxycycline hyclate 100 mg capsule 100 mg PO BID 10 Days Qty: 20 RF: 0 Held spironolactone 25 mg tablet 25 mg PO DAILY RF: 0 Hold Instructions: Resume on 12/09/20. metformin 500 mg tablet 500 mg PO BID RF: 0 Hold Instructions: Resume on 12/09/20. No Action hydrocodone-acetaminophen 10-325 mg tablet 1 tab PO TID RF: 0 aspirin [Adult Aspirin Regimen] 81 mg tablet,delayed release (DR/EC) 81 mg PO DAILY RF: 0 Symbicort 80-4.5 mcg/actuation HFA aerosol inhaler 2 puff INHALATION BID PRN (Reason: Shortness Of Breath) RF: 0 atorvastatin 20 mg tablet 20 mg PO DAILY RF: 0 cholecalciferol (vitamin D3) 25 mcg (1,000 unit) capsule 1,000 unit PO DAILY RF: 0 [id number] (C-georgi) 500-400-667 mg-mg-unit capsule 1 cap PO DAILY RF: 0 ascorbate calcium (vitamin C) 500 mg tablet 500 mg PO DAILY RF: 0 [id number] 600 mg calcium- 800 unit-50 mg tablet 2 tab PO DAILY RF: 0 gabapentin 300 mg capsule 300 mg PO BID RF: 0 albuterol sulfate 2.5 mg /3 mL (0.083 %) solution for nebulization 2.5 mg inhalation Q4H PRNRF: 0 isosorbide mononitrate 60 mg tablet extended release 24 hr 90 mg PO DAILY Qty: 135 RF: 3 metoprolol tartrate 50 mg tablet 50 mg PO BID Qty: 60 RF: 3 torsemide 20 mg tablet 40 mg PO DAILY Qty: 60 RF: 4 multivitamin [Multiple Vitamins] Tablet 1 tab PO DAILY RF: 0 cetirizine [Zyrtec] 10 mg Tablet 10 mg PO DAILY PRN (Reason: Allergy Symptoms) RF: 0 acetaminophen [Tylenol Extra Strength] 500 mg Tablet 1,000 mg PO BEDTIME RF: 0 vitamin E 1 cap PO DAILY RF: 0 Novolin R Regular U-100 Insuln 100 unit/mL solution See Rx Instructions .ROUTE .COMPLEX RF: 0 insulin NPH isoph U-100 human 100 unit/mL (3 mL) Insulin Pen See Rx Instructions .ROUTE .COMPLEX RF: 0 Discharge Orders: Discharge ED (Routine); Ordered 11/25/20 Ordered By: Adonis Levin Referrals: Denise Leon [Primary Care Provider] - Discharge Diet: Usual diet Discharge Activity: Increase activity as tolerated Patient Instructions: Opioid Safety Activity Restrictions/Additional Instructions: Follow-up with wound care and your primary care doctor early next week. Coding Level of Care Code ED Head Of [employer] for Chg Fwd Exam Detailed
--- NOTE | 2020-11-25 14:25 | PC.NURSE ---
pt reports swelling bilaterally to lower extremities. wounds developed on legs and pt has been seeing wound care to try to heal them. pt reports increased swelling and pain. pt is diabetic and also has a wound on her bottom that wound care cannot get to heal.
[2020-11-25 15:12] LABS: Basophils % 0.3 %; Eosinophils # 0.4 10^3/uL (0.0-0.8); Eosinophils % 3.7 %; Hematocrit 34.1 % (37.0-47.0); Hemoglobin 10.6 g/dL (11.5-15.3); Lymphocytes # 1.9 10^3/uL (0.8-4.8); Lymphocytes % 17.4 %; Mean Corpuscular HGB Conc 31.1 g/dL (30.0-36.0); Mean Corpuscular Hemoglobin 28.3 pg (28.0-34.0); Mean Corpuscular Volume 91.2 fL (81-99); Mean Platelet Volume 11.2 fL (7.4-10.4); Monocytes # 0.8 10^3/uL (0.2-0.9); Monocytes % 7.8 %; Neutrophils # 7.57 10^3/uL (1.8-7.7); Neutrophils % 70.6 %; Nucleated Red Blood Cells % 0 %; Platelet Count 303 10^3/cmm (130-400); Red Blood Count 3.74 10^6/uL (4.1-5.3); Red Cell Distribution Width 15.5 % (12.1-15.1); White Blood Count 10.7 10^3/uL (4.0-10.0)
[2020-11-25 15:57] LABS: Glucose Point of Care 166 mg/dL (70-110)
[2020-11-25 16:00] VITALS: BP 127/57; PULSE 76; O2SAT 98
[2020-11-25 16:01] LABS: Alanine Aminotransferase 13 U/L (0-33); Albumin Level 3.9 g/dL (3.5-5.2); Alkaline Phosphatase 113 IU/L (35-105); Anion Gap 17.5 (5-19); Aspartate Amino Transferase 15 U/L (0-32); Blood Urea Nitrogen 66 mg/dL (8-23); Calcium 9.1 mg/dL (8.5-10.5); Carbon Dioxide 29 mmol/L (22-29); Chloride 96 mmol/L (98-107); Globulin 2.9 g/dL (1.3-4.6); Glucose 159 mg/dL (65-115); Osmolality Calculated 308 mOsm/kg (285-295); Potassium 4.5 mmol/L (3.5-5.1); Sodium 138 mmol/L (136-145); Total Bilirubin 0.6 mg/dL (0.15-1.2); Total Protein 6.8 g/dL (6.6-8.7)
[2020-11-25 16:15] LABS: Add Urine Microscopic? NO; Charge for UA Resulting for Rev
[2020-11-25 16:20] LABS: Bilirubin Urine Neg (Negative); Blood Urine Neg (Negative); Glucose Urine UA Norm (Normal); Ketones Urine Negative (Negative); Leukocyte Esterase Urine Negative (Negative); Nitrate Urine Negative (Negative); Protein Urine Neg (Negative); Urine Appearance Clear (CLEAR); Urine Color Yellow (Yellow); Urobilinogen Urine Norm (Negative); pH Urine 5 (5-7)
[2020-11-25 17:12] VITALS: BP 118/46; PULSE 76; TEMP 36.7; O2SAT 98
== END 2020-11-25 17:13 | disposition home or self-care (01) ==
PROVIDERS: Emergency Provider Family Medicine; PCP Nurse Practitioner Family
DX: L89.159 Pressure ulcer of sacral region, unspecified stage (principal); N17.9 Acute kidney failure, unspecified; I12.9 Hypertensive chronic kidney disease with stage 1 through stage 4 chronic kidney disease, or unspecified chronic kidney disease; E11.22 Type 2 diabetes mellitus with diabetic chronic kidney disease; N18.9 Chronic kidney disease, unspecified; I25.10 Atherosclerotic heart disease of native coronary artery without angina pectoris; J44.9 Chronic obstructive pulmonary disease, unspecified; Z87.891 Personal history of nicotine dependence; Z79.82 Long term (current) use of aspirin; Z79.4 Long term (current) use of insulin
CPT/HCPCS: 36415; 36416; 71045; 80053; 81003; 82962; 85025; 87040; 93970; 99283

== ENCOUNTER 2020-11-29 10:04 | Outpatient (CLI) | payer MEDICARE, MEDICAID, SELFPAY ==
--- NOTE | 2020-11-29 10:15 | USCV_ITS ---
Lacey Contreras Age: 75 Gender: F : 1945 Exam Date: 11/29/2020 10:31 Ordering Phys: Andriy Norton MD ([email or web address]) Technologist: Regina Castillo Exam Location: [facility] [place] Indication: Non-pressure chronic ulcer of skin Risk Factors: Diabetes Previous Vascular Surgery: RIGHT LEFT Waveform Velocity (cm/s) Velocity (cm/s) Waveform Triphasic 112.6 Iliac Mid 62.1 Monophasic Triphasic 153.8 Iliac Distal 149.9 Monophasic Monophasic 99.4 ANIMAL CARE ASSISTANT 372.9 Monophasic Monophasic 107.2 SFA Prox 170.9 Monophasic Monophasic SFA Mid Monophasic 150.7 47.3 Monophasic 164.9 SFA Dist 59.2 Monophasic Monophasic 87.1 POP 38.5 Monophasic Monophasic 72.8 PHOTOVOLTAIC INSTALLATION TECHNICIAN 25.6 Monophasic Monophasic DPA FINDINGS See measurements listed above. Moderate diffuse plaques in the iliac and femoral artery on the right side Heavy heterogeneous plaques at the left common femoral artery with velocity elevation Noted diffuse plaques in the femoral and popliteal artery on the left side Dorsalis pedis artery on the left side was not visualized TANIA could not be obtained. 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 ABIs could not be obtained No similar previous studies are available for comparison Dr Andriy Norton MD [facility] (Electronically Signed) Final Date: 30 November 2020 23:27 S
== END 2020-11-29 10:05 | disposition home or self-care (01) ==
LOC: US 10:07
PROVIDERS: PCP Nurse Practitioner Family; Visit Provider Internal Medicine Cardiovascular Disease
DX: L98.499 Non-pressure chronic ulcer of skin of other sites with unspecified severity (principal); I70.8 Atherosclerosis of other arteries
CPT/HCPCS: 93925

== ENCOUNTER 2020-11-30 12:42 | Outpatient (CLI) | payer MEDICARE, MEDICAID, SELFPAY ==
--- NOTE | 2020-11-30 12:45 | USCV_ITS ---
Lacey Contreras Age: 75 Gender: F : 1945 Exam Date: 11/30/2020 13:41 Ordering Phys: Andriy Norton MD ([email or web address]) Technologist: Ela Jones [place] [facility] [place]: HISTORY: Patient has history of ulcers. PROCEDURES: Bilateral duplex Venous Insufficiency study of the Deep and Superficial systems was carried out according to normal protocol with the patient in supine positon for deep system and dependent position for the superficial system. FINDINGS: There is no evidence of bilateral deep vein thrombosis. No evidence of superficial thrombosis in the bilateral saphenous system. No evidence of reflux was noted in the bilateral deep venous system. No venous reflux noted in the bilateral greater saphenous vein. No venous reflux noted in the bilateral small saphenous vein. The veins were found to be easily compressible with spontaneous blood flow. Non pulsatile flow pattern. CONCLUSIONS No evidence of DVT in the above-mentioned identifiable veins. Dr Andriy Norton MD [facility] (Electronically Signed) Final Date: 01 December 2020 09:14 S
== END 2020-11-30 12:43 | disposition home or self-care (01) ==
LOC: RAD 12:43
PROVIDERS: PCP Nurse Practitioner Family; Visit Provider Internal Medicine Cardiovascular Disease
DX: M79.89 Other specified soft tissue disorders (principal)
CPT/HCPCS: 93970

== ENCOUNTER 2020-11-30 14:18 | Outpatient (CLI) | payer MEDICARE, MEDICAID, SELFPAY | END 2020-11-30 14:19 | disposition home or self-care (01) | LOC: WOUND 14:19 | PROVIDERS: PCP Nurse Practitioner Family; Visit Provider Thoracic Surgery (Cardiothoracic Vascular Surgery) | DX: E11.622 Type 2 diabetes mellitus with other skin ulcer (principal); L97.822 Non-pressure chronic ulcer of other part of left lower leg with fat layer exposed; L97.812 Non-pressure chronic ulcer of other part of right lower leg with fat layer exposed; L89.313 Pressure ulcer of right buttock, stage 3 | CPT/HCPCS: 97597; 97598 ==

== ENCOUNTER 2020-12-07 13:33 | Outpatient (CLI) | payer MEDICARE, MEDICAID, SELFPAY | END 2020-12-07 13:34 | disposition home or self-care (01) | LOC: WOUND 13:34 | PROVIDERS: PCP Nurse Practitioner Family; Visit Provider Nurse Practitioner Family | DX: E11.622 Type 2 diabetes mellitus with other skin ulcer (principal); L97.822 Non-pressure chronic ulcer of other part of left lower leg with fat layer exposed; L97.819 Non-pressure chronic ulcer of other part of right lower leg with unspecified severity; L89.302 Pressure ulcer of unspecified buttock, stage 2 | CPT/HCPCS: 11042; 11045 ==

== ENCOUNTER → 2020-12-13 16:42 | Outpatient (BNVA) | payer MEDICARE, MEDICAID, SELFPAY | PROVIDERS: PCP Nurse Practitioner Family; Visit Provider Internal Medicine Cardiovascular Disease | DX: I50.33 Acute on chronic diastolic (congestive) heart failure (principal); R06.02 Shortness of breath; L98.499 Non-pressure chronic ulcer of skin of other sites with unspecified severity; M79.89 Other specified soft tissue disorders; N18.9 Chronic kidney disease, unspecified; I35.0 Nonrheumatic aortic (valve) stenosis; I25.10 Atherosclerotic heart disease of native coronary artery without angina pectoris; I10 Essential (primary) hypertension | CPT/HCPCS: 80048; 83880 ==

== ENCOUNTER 2020-12-14 14:23 | Outpatient (CLI) | payer MEDICARE, MEDICAID, SELFPAY | END 2020-12-14 14:24 | disposition home or self-care (01) | LOC: WOUND 14:24 | PROVIDERS: PCP Nurse Practitioner Family; Visit Provider Thoracic Surgery (Cardiothoracic Vascular Surgery) | DX: E11.622 Type 2 diabetes mellitus with other skin ulcer (principal); L97.821 Non-pressure chronic ulcer of other part of left lower leg limited to breakdown of skin; L97.811 Non-pressure chronic ulcer of other part of right lower leg limited to breakdown of skin; L89.312 Pressure ulcer of right buttock, stage 2 | CPT/HCPCS: 97597; 97598 ==

== ENCOUNTER 2020-12-21 13:08 | Outpatient (CLI) | payer MEDICARE, MEDICAID, SELFPAY | END 2020-12-21 13:09 | disposition home or self-care (01) | LOC: WOUND 13:09 | PROVIDERS: PCP Nurse Practitioner Family; Visit Provider Thoracic Surgery (Cardiothoracic Vascular Surgery) | DX: E11.622 Type 2 diabetes mellitus with other skin ulcer (principal); L97.822 Non-pressure chronic ulcer of other part of left lower leg with fat layer exposed; L97.812 Non-pressure chronic ulcer of other part of right lower leg with fat layer exposed; L89.312 Pressure ulcer of right buttock, stage 2 | CPT/HCPCS: 97597 ==

== ENCOUNTER 2020-12-28 13:07 | Outpatient (CLI) | payer MEDICARE, MEDICAID, SELFPAY | END 2020-12-28 13:08 | disposition home or self-care (01) | LOC: WOUND 13:08 | PROVIDERS: PCP Nurse Practitioner Family; Visit Provider Thoracic Surgery (Cardiothoracic Vascular Surgery) | DX: E11.622 Type 2 diabetes mellitus with other skin ulcer (principal); L97.822 Non-pressure chronic ulcer of other part of left lower leg with fat layer exposed; L97.812 Non-pressure chronic ulcer of other part of right lower leg with fat layer exposed; L89.312 Pressure ulcer of right buttock, stage 2 | CPT/HCPCS: 11042; 11045; 80048; 83880 ==

== ENCOUNTER 2021-01-04 13:50 | Outpatient (CLI) | payer MEDICARE, MEDICAID, SELFPAY | END 2021-01-04 13:51 | disposition home or self-care (01) | LOC: WOUND 13:51 | PROVIDERS: PCP Nurse Practitioner Family; Visit Provider Thoracic Surgery (Cardiothoracic Vascular Surgery) | DX: E11.622 Type 2 diabetes mellitus with other skin ulcer (principal); L97.822 Non-pressure chronic ulcer of other part of left lower leg with fat layer exposed | CPT/HCPCS: 11042 ==

== ENCOUNTER 2021-01-11 07:53 | Outpatient (CLI) | payer MEDICARE, MEDICAID, SELFPAY | END 2021-01-11 07:54 | disposition home or self-care (01) | LOC: WOUND 07:54 | PROVIDERS: PCP Nurse Practitioner Family; Visit Provider Nurse Practitioner Family | DX: E11.622 Type 2 diabetes mellitus with other skin ulcer (principal); L97.822 Non-pressure chronic ulcer of other part of left lower leg with fat layer exposed | CPT/HCPCS: G0463 ==

== ENCOUNTER 2021-01-18 08:09 | Outpatient (CLI) | payer MEDICARE, MEDICAID, SELFPAY | END 2021-01-18 08:10 | disposition home or self-care (01) | LOC: WOUND 08:10 | PROVIDERS: PCP Nurse Practitioner Family; Visit Provider Nurse Practitioner Family | DX: E11.622 Type 2 diabetes mellitus with other skin ulcer (principal); L97.821 Non-pressure chronic ulcer of other part of left lower leg limited to breakdown of skin | CPT/HCPCS: 11042 ==

== ENCOUNTER 2021-01-25 08:03 | Outpatient (CLI) | payer MEDICARE, MEDICAID, SELFPAY | END 2021-01-25 08:04 | disposition home or self-care (01) | LOC: WOUND 08:05 | PROVIDERS: PCP Nurse Practitioner Family; Visit Provider Nurse Practitioner Family | DX: Z09 Encounter for follow-up examination after completed treatment for conditions other than malignant neoplasm (principal) | CPT/HCPCS: 99212 ==

== ENCOUNTER → 2021-01-29 09:05 | Outpatient (BNVA) | payer MEDICARE, MEDICAID, SELFPAY | PROVIDERS: PCP Nurse Practitioner Family; Visit Provider Internal Medicine Cardiovascular Disease | DX: E87.5 Hyperkalemia (principal); I25.10 Atherosclerotic heart disease of native coronary artery without angina pectoris; I73.9 Peripheral vascular disease, unspecified; M79.89 Other specified soft tissue disorders; R06.02 Shortness of breath | CPT/HCPCS: 80048; 83880 ==

== ENCOUNTER 2021-02-26 14:44 | Outpatient (CLI) | payer MEDICARE, MEDICAID, SELFPAY | END 2021-02-26 14:45 | disposition home or self-care (01) | LOC: WOUND 14:45 | PROVIDERS: PCP Nurse Practitioner Family; Visit Provider Thoracic Surgery (Cardiothoracic Vascular Surgery) | DX: L53.9 Erythematous condition, unspecified (principal) | CPT/HCPCS: 99212 ==

== ENCOUNTER → 2021-02-28 13:16 | Outpatient (BNVA) | payer MEDICARE, MEDICAID, SELFPAY | PROVIDERS: PCP Nurse Practitioner Family; Visit Provider Internal Medicine Cardiovascular Disease | DX: I25.10 Atherosclerotic heart disease of native coronary artery without angina pectoris (principal); E11.65 Type 2 diabetes mellitus with hyperglycemia; E87.5 Hyperkalemia; N18.9 Chronic kidney disease, unspecified; Z79.4 Long term (current) use of insulin; M79.89 Other specified soft tissue disorders; R06.00 Dyspnea, unspecified; R06.02 Shortness of breath; R06.89 Other abnormalities of breathing; R07.89 Other chest pain; I73.9 Peripheral vascular disease, unspecified; I35.0 Nonrheumatic aortic (valve) stenosis; I10 Essential (primary) hypertension | CPT/HCPCS: 80048; 83880 ==

== ENCOUNTER → 2021-03-30 09:38 | Outpatient (BNVA) | payer MEDICARE, MEDICAID, SELFPAY | PROVIDERS: PCP Nurse Practitioner Family; Visit Provider Internal Medicine Cardiovascular Disease | DX: N18.9 Chronic kidney disease, unspecified (principal); I10 Essential (primary) hypertension; I25.10 Atherosclerotic heart disease of native coronary artery without angina pectoris | CPT/HCPCS: 80048; 83880 ==

== ENCOUNTER → 2021-05-21 09:32 | Outpatient (BNVA) | payer MEDICARE, MEDICAID, SELFPAY | PROVIDERS: PCP Nurse Practitioner Family; Visit Provider Internal Medicine Cardiovascular Disease | DX: Z01.812 Encounter for preprocedural laboratory examination (principal); I73.9 Peripheral vascular disease, unspecified; R07.89 Other chest pain; R06.02 Shortness of breath; M79.89 Other specified soft tissue disorders; Z01.818 Encounter for other preprocedural examination; R06.00 Dyspnea, unspecified; R06.89 Other abnormalities of breathing; Z20.822 Contact with and (suspected) exposure to COVID-19; I25.10 Atherosclerotic heart disease of native coronary artery without angina pectoris; N18.31 Chronic kidney disease, stage 3a | CPT/HCPCS: 80048; 83880; 85025; 85610; 86850; 86900; 87635 ==

== ENCOUNTER 2021-06-18 09:41 | Outpatient (CLI) | payer MEDICARE, MEDICAID, SELFPAY ==
--- NOTE | 2021-06-18 09:44 | MM_ITS ---
WS: [id number] BILATERAL DIGITAL SCREENING MAMMOGRAPHY WITH CAD CLINICAL INFORMATION: SCREENING HISTORY: Screening mammogram. No current complaints. COMPARISON: TECHNIQUE: Bilateral CC and MLO views. FINDINGS: Scattered fibroglandular densities bilaterally. Punctate and lucent centered calcifications. No suspi cious focal mass, asymmetry, calcifications, or architectural distortion. No evidence of malignancy. MM/[id number] IMPRESSION: BI-RADS: 2-Benign FOLLOW UP: 1 Year Follow-up Recommend return to annual screening mammography.
== END 2021-06-18 09:42 | disposition home or self-care (01) ==
LOC: RADSHAW 09:42
PROVIDERS: PCP Nurse Practitioner Family; Visit Provider Nurse Practitioner Family
DX: Z12.31 Encounter for screening mammogram for malignant neoplasm of breast (principal)
CPT/HCPCS: 77067

== ENCOUNTER → 2021-06-22 10:40 | Outpatient (BNVA) | payer MEDICARE, MEDICAID, SELFPAY | PROVIDERS: PCP Nurse Practitioner Family; Visit Provider Internal Medicine Cardiovascular Disease | DX: Z01.818 Encounter for other preprocedural examination (principal); R07.89 Other chest pain; R06.00 Dyspnea, unspecified; R06.02 Shortness of breath; R06.89 Other abnormalities of breathing; E11.65 Type 2 diabetes mellitus with hyperglycemia; N17.9 Acute kidney failure, unspecified; Z79.4 Long term (current) use of insulin; I73.9 Peripheral vascular disease, unspecified; Z20.822 Contact with and (suspected) exposure to COVID-19 | CPT/HCPCS: 80048; 85025; 85610; 86850; 86900; 87635 ==

== ENCOUNTER 2021-06-27 05:57 | Outpatient (CLI) | payer MEDICARE, MEDICAID, SELFPAY ==
[2021-06-27] VITALS (26 sets, daily range): BP systolic 110–167; BP diastolic 52–85; PULSE 68–82; RESP 11–24; TEMP 36.2–36.9; O2SAT 93–98; BMI 41.5
--- NOTE | 2021-06-27 | XACV_ITS ---
Exam Room: 1 Ht: 150 cm Wt: 93 kg BSA: 2.02 m2 Gender: Female : 1945 Any Known Allergies: Hydrocodone Exam Priority: Routine Procedure(s): Procedure Description: Diagnostic procedure Procedure Description: Left Heart Catheterization Procedure Description: Peripheral Cath Diagnostic Procedure Procedure Description: Abdominal aortic angiography Procedure Description: Lower extremities' angiography Procedure Description: Coronary Angiography Diagnostic Cath Status: Elective Diagnostic Findings * No disease noted in the Left Main, Left Anterior Descending, Right, or Circumflex coronary arteries. * Coronary angiography shows right dominance. * The left main is a medium caliber vessel with no significant stenotic lesions. Minimal intimal irregularities were noted. * The left anterior descending artery is a medium caliber elongated vessel appears to have mild to moderate diffuse disease. No high-grade lesions were noted. Diffuse coronary calcification was noted in the proximal and mid segment of the artery. The artery also was found to be extremely tortuous. * The left circumflex artery is a medium caliber vessel which also was found to have mild diffuse disease. The proximal segment of the artery was found to have diffuse calcification. Just before the takeoff of the first obtuse marginal branch, there was an eccentric 40% narrowing in the artery. * There is a small caliber intermedius artery with diffuse intimal irregularities. No significant stenotic lesions were noted. * Right coronary artery disease is a small to medium caliber vessel with 20 to 30% diffuse narrowing in the proximal and mid segment of the artery. The distal segment of the artery was found to have around 50 napkin ring type of lesion. The PDA and the PLV branches were found to have minimal intimal irregularities. PCI Status: Elective Abdominal Diagnostic Findings The pigtail catheter was placed in the infra renal aorta. Abdominal aortogram with runoff was performed in the anterior posterior view. The abdominal aorta was found to have moderate diffuse plaques. Both common iliac arteries were found to have minimal intimal regularities with no significant stenotic lesions. The internal iliac artery also was found to have no significant stenotic lesions. Lower Extremity Diagnostic Findings The left common iliac artery was selectively engaged. Iliac angiogram with runoff was performed in the AP view. The common femoral artery just above the origin of the profunda femoral artery was found to have a filling defect suggesting heavy calcification. In the mid SFA was found to have moderate diffuse disease. At the junction of the mid and distal third of the superficial femoral artery, right after the origin of the descending genicular artery, the artery appears to be totally occluded. There appears to be reconstituting just above the knee. The popliteal artery was found to have minimal intimal irregularities. Three-vessel runoff was noted extending to the ankle. The anterior tibial artery appears to be occluded just above the ankle. Right iliac angiogram with runoff was performed by injecting into the femoral arterial sheath. The common femoral and the femoral artery were found to have mild to moderate diffuse disease. Popliteal artery was found to have mild diffuse intimal irregularities. Moderate diffuse calcification was noted in the femoral artery. Infrapopliteally, only 1 vessel was noted, extending to the ankle(posterior tibial). Lower Extremity Interventional Findings Procedure detail: Using seeker support catheter and Glidewire we attempted to cross the mid to distal totally occluded SFA artery. However catheter was going submentally and attempt was unsuccessful. Procedure was aborted at this time with plan to proceed with staged retrograde approach from PT or popliteal artery. Patient left the Internal Recruiter in stable condition. Conclusions No disease noted in the Left Main, Left Anterior Descending, Right, or Circumflex coronary arteries. 75-year-old white female with a history of atherosclerotic heart disease and peripheral artery disease, presented with nonhealing ulcer of of the left leg with exertional claudication. She also has been having increasing episodes of chest pain. In order to further evaluate her symptoms, a coronary angiogram and a peripheral angiogram were recommended. Patient underwent left heart catheterization with left and right coronary angiogram, and peripheral angiogram today. The findings are as follows. The coronary angiogram revealed mild to moderate diffuse disease with no significant stenotic lesions. The proximal segment of the coronary arteries were found to have mild to moderate diffuse calcification. The LVEDP was 14 mmHg. The peripheral angiogram revealed total occlusion of the distal superficial femoral artery on the left side. There is a filling defect just above the origin of the profunda femoral artery on the left side, suggesting heavy calcification. The anterior tibial artery was found to be occluded just above the ankle on the left side. On the right side, there was mild to moderate diffuse disease in the femoral artery. The anterior tibial and the peroneal arteries were found to be occluded. Posterior tibial artery was found to be extending up to the ankle.. Patient able angiographic findings, it was thought to be appropriate to consider percutaneous intervention of the femoral artery lesions on the left side. I discussed and reviewed the catheterization data with Dr. Gates. Dr. Gates took over further management of this patient at this point. Unsuccessful attempt at revascularization of SFA. Plan for staged percutaneous intervention of common femoral artery and SFA from retrograde approach using either popliteal artery or PT access. Recommendations Continue current medical management and risk factor modification. Percutaneous intervention of the femoral artery lesions on the left side. Staged percutaneous revascularization of mid to distal SFA and left common femoral artery. LV EDP: 14 mmHg Left Ventriculography Findings: * LV gram was not performed because of chronic kidney disease. The LVEDP was 14 mmHg. Pressures Phase:Rest AO : 155 / 62 ( 99 ) @ 5:30:00 AM 169 / 64 ( 109 ) @ 5:43:00 AM 164 / 61 ( 105 ) @ 5:43:00 AM 209 / 95 ( 121 ) @ 5:56:00 AM 139 / 55 ( 88 ) @ 5:57:00 AM LV : 167 / -9 / 14 @ 5:43:00 AM 174 / -5 / 16 @ 5:43:00 AM Valves Phase:DefaultPhase AV : 5.0 @ 8:47:44 AM AV Mean Gradient: 10.0 @ 8:47:44 AM Hemodynamic Data Phase:Rest AO : 155.0 / 62.0 ( 99.0 ) @ 5:30:00 AM 169.0 / 64.0 ( 109.0 ) @ 5:43:00 AM 164.0 / 61.0 ( 105.0 ) @ 5:43:00 AM 209.0 / 95.0 ( 121.0 ) @ 5:56:00 AM 139.0 / 55.0 ( 88.0 ) @ 5:57:00 AM Clinical Evaluation EBL: 5mL-10mL Procedural Details Pre-Procedure Time Out. Identified patient by full name and date of as verbalized by the patient/guarantor. Does the consent match the physician's order: Yes. Accurate & Complete Informed Consent: Yes. Inpatient/Outpatient History & Physical on Chart: Yes. If H&P is completed, is and addenduem needed: N/A. Visualize and Verify Site with Patient/Guarantor: N/A. Relevant Radiology Images available: Yes. Pre-op teaching completed and patient verbalized understanding. The risks, benefits, and alternatives of sedation and/or procedure were discussed by physician. The patient agrees to continue. Procedure started. [facility] Clinical Fraility Score: 4: Vulnerable. Internal Recruiter Indications: Worsening Angina. Chest Pain Symptom Assessment: Typical Angina Symptoms. Cardiovascular Instability: No. Correct patient, site and procedure confirmed by cath team. PERRLA. Strong, equal hand honey extractor bilaterally. Lungs clear x 5 lobes. IV Site on Arrival: 22 gauge in the left upper arm. IV Fluids: 0.9% NaCl at KVO. 0 mL infused prior to cardiac catheterization technician. Pre Procedural Pulses: bilateral dorsalis pedis was Doppled. Pre Procedural Pulses: bilateral posterior tibial was Doppled. Pre Procedural Pulses: bilateral radial was 2+. Oxygen started at 2liters/min via nasal canula. bilateral groins was prepped with chloroprep then draped in the usual sterile fashion. Physician notified. Baseline sample Acquired. HR: 68 BPM. Patient's family waiting in the radiology waiting room. Will update as needed. Equipment: 6F - Femoral. Cardiac Cath Pack. ACIST Manifold Kit Model BT 2000. Heparinized Saline (2 units/mL), 1000 mL bag. Physician arrived. Laurie Grajeda RN circulating. Physician scrubbed in. Immediate Pre-Procedure Time Out. Correct Patient: Yes; Correct Procedure: Yes; Correct Site: Yes; Correct Patient Position: Yes; Correct Supplies: Yes; Dried Flammable Prep: Yes; Blood Products Available: N/A. Lidocaine 1% infiltrated to the right groin. Venous access obtained. A 5 greenlandic JL4 catheter in over wire. Multiple views taken of left coronary artery. Catheter removed over the standard wire. A 5 greenlandic JR4 catheter in over wire. Multiple views taken of right coronary artery. Catheter removed over the standard wire. A 5 greenlandic Angled Pig catheter in over wire. EDP Sample taken: LV 167/-10,14; HR: 84 BPM; SpO2: 100%. Pullback taken: LV 174/-6,16; AO 169/64(109); Mean: 10mmHg, Peak to Peak: 5mmHg, SEP: 22sec/min; HR: 84 BPM; SpO2: 100%. Pigtail repositioned in the aorta. Abdominal aortogram performed in AP @ 20 mL/sec for a total of 40 mL. A 5Fr RIM catheter in over wire. Glidewire in. Glidewire out. Left common femoral selected and arteriogram with runoff performed @ 10 mL/sec for a total of 30 mL. Right common femoral selected and arteriogram with runoff performed @ 10 mL/sec for a total of 30 mL. Side port of sheath attached to Normal Saline flush at KVO to maintain patency. Dr. Gates here to view cineography. Dr. Norton scrubbed out, Dr. Gates scrubbed in. Catheter removed over the standard wire. A 5Fr RIM catheter in over the glidewire. Glidewire out, hand injection performed. Catheter removed over the glide wire. A 5Fr UF catheter in over wire. UF Catheter out. A new 5Fr RIM catheter in over glidewire. RIM Catheter out. Sheath upsized to a 6 Fr. Seeker catheter inserted over the glidewire. Glidewire out. Hand injection of the left leg performed. Glidewire in. Glidewire out. Hand injection of the left leg performed. Seeker catheter out over the standard wire. Sheath upsized to a 6 Fr. Sheath to be pulled in CPRU. Physician scrubbed out. Post Procedure: Pulses reassessed and unchanged. PERRLA. Strong, equal hand honey extractor bilaterally. No VTE prophylaxis required. Medication's Wasted: Lidocaine 1% = 5 mL. Medication's Wasted: Heparin = 1000 units. Total IV fluids: 50 mL. Post-op diagnosis: Normal Coronaries, Severe Bilateral PAD, unsuccessful attempt at intervention of the Left SFA. Will bring the patient back for popliteal access. Complications: none. Estimated blood loss: 5mL-10mL. Procedure completed. Patient transferred by bed to CPRU. Vital chart was stopped. Access Site Site: Right Femoral vein Sheath Size: 5 Fr Hemostasis Success: Unsuccessful Site: Right Femoral artery Sheath Size: 5 Fr Hemostasis Success: Unsuccessful Procedure Medications Start: 7:17 AM Stop: 7:17 AM Medication: Versed Amount: 1 mg Route: I.V. Start: 7:17 AM Stop: 7:17 AM Medication: Fentanyl Amount: 50 mcg Start: 7:30 AM Stop: 7:30 AM Medication: Heparin Amount: 1500 units Route: I.V. Start: 7:30 AM Stop: 7:30 AM Medication: Versed Amount: 1 mg Route: I.V. Start: 8:08 AM Stop: 8:08 AM Medication: Versed Amount: 1 mg Route: I.V. Start: 8:08 AM Stop: 8:08 AM Medication: Fentanyl Amount: 25 mcg Start: 8:14 AM Stop: 8:14 AM Medication: Versed Amount: 1 mg Route: I.V. Start: 8:14 AM Stop: 8:14 AM Medication: Fentanyl Amount: 25 mcg Start: 8:28 AM Stop: 8:28 AM Medication: Versed Amount: 1 mg Route: I.V. Start: 8:28 AM Stop: 8:28 AM Medication: Fentanyl Amount: 50 mcg I, the attending physician, have reviewed and verified all procedure medications. Yes, all medications given per verbal order History/Risk Factors Hypertension: Yes Dyslipidemia: No Peripheral Arterial Disease (PAD): Yes Myocardial Infarction (VT): No Obesity: Yes Renal Disease: No Tobacco Use: Never Prior Interventions PCI: No CABG: No Valve Surgery: No Report Signatures IPV Workflow Finalized by Ken Gates MD on 07/30/2021 12:57 PM Cath Workflow Finalized by Dr Andriy Norton MD [facility] on 06/27/2021 09:16 PM
--- NOTE | 2021-06-27 06:00 | XACV_ITS ---
Exam Room: 1 Ht: 150 cm Wt: 93 kg BSA: 2.02 m2 Gender: Female : 1945 Any Known Allergies: Other Exam Priority: Routine Procedure(s): Procedure Description: Diagnostic procedure Procedure Description: Left Heart Catheterization Procedure Description: Peripheral Cath Diagnostic Procedure Procedure Description: Abdominal aortic angiography Procedure Description: Lower extremities' angiography Procedure Description: Coronary Angiography Errol LEVIN; Diagnostic Cath Status: Elective Diagnostic Findings * No disease noted in the Left Main, Left Anterior Descending, Right, or Circumflex coronary arteries. * Coronary angiography shows right dominance. * The left main is a medium caliber vessel with no significant stenotic lesions. * The left anterior descending artery is a medium caliber elongated vessel appears to have mild to moderate diffuse disease. No high-grade lesions were noted. Diffuse coronary calcification was noted in the proximal and mid segment of the artery. The artery also was found to be extremely tortuous.. * The left circumflex artery is a medium caliber vessel which also was found to have mild diffuse disease. The proximal segment of the artery was found to have diffuse calcification. Just before the takeoff of the first obtuse marginal branch, there was an eccentric 40% narrowing in the artery.. * There is a small caliber intermedius artery with diffuse intimal irregularities. No significant stenotic lesions were noted. * Right coronary artery disease is a small to medium caliber vessel with 20 to 30% diffuse narrowing in the proximal and mid segment of the artery. The distal segment of the artery was found to have around 50 napkin ring type of lesion. The PDA and the PLV branches were found to have minimal intimal irregularities. PCI Status: Elective Abdominal Diagnostic Findings The pigtail catheter was placed in the infra renal aorta. Abdominal aortogram with runoff was performed in the anterior posterior view. The abdominal aorta was found to have moderate diffuse plaques. Both common iliac arteries were found to have minimal intimal regularities with no significant stenotic lesions. The internal iliac artery also was found to have no significant stenotic lesions.. Lower Extremity Diagnostic Findings The left common iliac artery was selectively engaged. Iliac angiogram with runoff was performed in the AP view. The common femoral artery just above the origin of the profunda femoral artery was found to have a filling defect suggesting heavy calcification. In the mid SFA was found to have moderate diffuse disease. At the junction of the mid and distal third of the superficial femoral artery, right after the origin of the descending genicular artery, the artery appears to be totally occluded. There appears to be reconstituting just above the knee. The popliteal artery was found to have minimal intimal irregularities. Three-vessel runoff was noted extending to the ankle. The anterior tibial artery appears to be occluded just above the ankle. Right iliac angiogram with runoff was performed by injecting into the femoral arterial sheath. The common femoral and the femoral artery were found to have mild to moderate diffuse disease. Popliteal artery was found to have mild diffuse intimal irregularities. Moderate diffuse calcification was noted in the femoral artery. Infrapopliteally, only 1 vessel was noted, extending to the ankle(posterior tibial). Conclusions No disease noted in the Left Main, Left Anterior Descending, Right, or Circumflex coronary arteries. 75-year-old white female with a history of atherosclerotic heart disease and peripheral artery disease, presented with nonhealing ulcer of of the left leg with exertional claudication. She also has been having increasing episodes of chest pain. In order to further evaluate her symptoms, a coronary angiogram and a peripheral angiogram were recommended. Patient underwent left heart catheterization with left and right coronary angiogram, and peripheral angiogram today. The findings are as follows. The coronary angiogram revealed mild to moderate diffuse disease with no significant stenotic lesions. The proximal segment of the coronary arteries were found to have mild to moderate diffuse calcification. The LVEDP was 14 mmHg. The peripheral angiogram revealed total occlusion of the distal superficial femoral artery on the left side. There is a filling defect just above the origin of the profunda femoral artery on the left side, suggesting heavy calcification. The anterior tibial artery was found to be occluded just above the ankle on the left side. On the right side, there was mild to moderate diffuse disease in the femoral artery. The anterior tibial and the peroneal arteries were found to be occluded. Posterior tibial artery was found to be extending up to the ankle.. Patient able angiographic findings, it was thought to be appropriate to consider percutaneous intervention of the femoral artery lesions on the left side. I discussed and reviewed the catheterization data with Dr. Gates. Dr. Gates took over further management of this patient at this point. Recommendations Continue current medical management and risk factor modification. Percutaneous intervention of the femoral artery lesions on the left side. LV EDP: 14 mmHg Left Ventriculography Findings: * LV gram was not performed because of chronic kidney disease. The LVEDP was 14 mmHg. Pressures Phase:Rest AO : 155 / 62 ( 99 ) @ 5:30:00 AM 169 / 64 ( 109 ) @ 5:43:00 AM 164 / 61 ( 105 ) @ 5:43:00 AM 209 / 95 ( 121 ) @ 5:56:00 AM 139 / 55 ( 88 ) @ 5:57:00 AM LV : 167 / -9 / 14 @ 5:43:00 AM 174 / -5 / 16 @ 5:43:00 AM Valves Phase:DefaultPhase AV : 5.0 @ 8:47:44 AM AV Mean Gradient: 10.0 @ 8:47:44 AM Hemodynamic Data Phase:Rest AO : 155.0 / 62.0 ( 99.0 ) @ 5:30:00 AM 169.0 / 64.0 ( 109.0 ) @ 5:43:00 AM 164.0 / 61.0 ( 105.0 ) @ 5:43:00 AM 209.0 / 95.0 ( 121.0 ) @ 5:56:00 AM 139.0 / 55.0 ( 88.0 ) @ 5:57:00 AM Clinical Evaluation EBL: 5mL-10mL Procedural Details Pre-Procedure Time Out. Identified patient by full name and date of as verbalized by the patient/guarantor. Does the consent match the physician's order: Yes. Accurate & Complete Informed Consent: Yes. Inpatient/Outpatient History & Physical on Chart: Yes. If H&P is completed, is and addenduem needed: N/A. Visualize and Verify Site with Patient/Guarantor: N/A. Relevant Radiology Images available: Yes. Pre-op teaching completed and patient verbalized understanding. The risks, benefits, and alternatives of sedation and/or procedure were discussed by physician. The patient agrees to continue. Procedure started. [facility] Clinical Fraility Score: 4: Vulnerable. Senior Business Development Analyst Indications: Worsening Angina. Chest Pain Symptom Assessment: Typical Angina Symptoms. Cardiovascular Instability: No. Correct patient, site and procedure confirmed by cath team. PERRLA. Strong, equal hand therapy tech bilaterally. Lungs clear x 5 lobes. IV Site on Arrival: 22 gauge in the left upper arm. IV Fluids: 0.9% NaCl at KVO. 0 mL infused prior to collaborative physician. Pre Procedural Pulses: bilateral dorsalis pedis was Doppled. Pre Procedural Pulses: bilateral posterior tibial was Doppled. Pre Procedural Pulses: bilateral radial was 2+. Oxygen started at 2liters/min via nasal canula. bilateral groins was prepped with chloroprep then draped in the usual sterile fashion. Physician notified. Baseline sample Acquired. HR: 68 BPM. Patient's family waiting in the radiology waiting room. Will update as needed. Equipment: 6F - Femoral. Cardiac Cath Pack. ACIST Manifold Kit Model BT 2000. Heparinized Saline (2 units/mL), 1000 mL bag. Physician arrived. Laurie Grajeda RN circulating. Physician scrubbed in. Immediate Pre-Procedure Time Out. Correct Patient: Yes; Correct Procedure: Yes; Correct Site: Yes; Correct Patient Position: Yes; Correct Supplies: Yes; Dried Flammable Prep: Yes; Blood Products Available: N/A. Lidocaine 1% infiltrated to the right groin. Venous access obtained. A 5 uzbek JL4 catheter in over wire. Multiple views taken of left coronary artery. Catheter removed over the standard wire. A 5 uzbek JR4 catheter in over wire. Multiple views taken of right coronary artery. Catheter removed over the standard wire. A 5 uzbek Angled Pig catheter in over wire. EDP Sample taken: LV 167/-10,14; HR: 84 BPM; SpO2: 100%. Pullback taken: LV 174/-6,16; AO 169/64(109); Mean: 10mmHg, Peak to Peak: 5mmHg, SEP: 22sec/min; HR: 84 BPM; SpO2: 100%. Pigtail repositioned in the aorta. Abdominal aortogram performed in AP @ 20 mL/sec for a total of 40 mL. A 5Fr RIM catheter in over wire. Glidewire in. Glidewire out. Left common femoral selected and arteriogram with runoff performed @ 10 mL/sec for a total of 30 mL. Right common femoral selected and arteriogram with runoff performed @ 10 mL/sec for a total of 30 mL. Side port of sheath attached to Normal Saline flush at KVO to maintain patency. Dr. Gates here to view cineography. Dr. Norton scrubbed out, Dr. Gates scrubbed in. Catheter removed over the standard wire. A 5Fr RIM catheter in over the glidewire. Glidewire out, hand injection performed. Catheter removed over the glide wire. A 5Fr UF catheter in over wire. UF Catheter out. A new 5Fr RIM catheter in over glidewire. RIM Catheter out. Sheath upsized to a 6 Fr. Seeker catheter inserted over the glidewire. Glidewire out. Hand injection of the left leg performed. Glidewire in. Glidewire out. Hand injection of the left leg performed. Seeker catheter out over the standard wire. Sheath upsized to a 6 Fr. Sheath to be pulled in CPRU. Physician scrubbed out. Post Procedure: Pulses reassessed and unchanged. PERRLA. Strong, equal hand therapy tech bilaterally. No VTE prophylaxis required. Medication's Wasted: Lidocaine 1% = 5 mL. Medication's Wasted: Heparin = 1000 units. Total IV fluids: 50 mL. Post-op diagnosis: Normal Coronaries, Severe Bilateral PAD, unsuccessful attempt at intervention of the Left SFA. Will bring the patient back for popliteal access. Complications: none. Estimated blood loss: 5mL-10mL. Procedure completed. Patient transferred by bed to CPRU. Vital chart was stopped. Access Site Site: Right Femoral vein Sheath Size: 5 Fr Hemostasis Success: Unsuccessful Site: Right Femoral artery Sheath Size: 5 Fr Hemostasis Success: Unsuccessful Procedure Medications Start: 7:17 AM Stop: 7:17 AM Medication: Versed Amount: 1 mg Route: I.V. Start: 7:17 AM Stop: 7:17 AM Medication: Fentanyl Amount: 50 mcg Start: 7:30 AM Stop: 7:30 AM Medication: Heparin Amount: 1500 units Route: I.V. Start: 7:30 AM Stop: 7:30 AM Medication: Versed Amount: 1 mg Route: I.V. Start: 8:08 AM Stop: 8:08 AM Medication: Versed Amount: 1 mg Route: I.V. Start: 8:08 AM Stop: 8:08 AM Medication: Fentanyl Amount: 25 mcg Start: 8:14 AM Stop: 8:14 AM Medication: Versed Amount: 1 mg Route: I.V. Start: 8:14 AM Stop: 8:14 AM Medication: Fentanyl Amount: 25 mcg Start: 8:28 AM Stop: 8:28 AM Medication: Versed Amount: 1 mg Route: I.V. Start: 8:28 AM Stop: 8:28 AM Medication: Fentanyl Amount: 50 mcg I, the attending physician, have reviewed and verified all procedure medications. Yes, all medications given per verbal order History/Risk Factors Hypertension: Yes Dyslipidemia: No Peripheral Arterial Disease (PAD): No Myocardial Infarction (SD): Yes Obesity: Yes Renal Disease: No Tobacco Use: Former Prior Interventions PCI: No CABG: No Valve Surgery: No Report Signatures IPV Workflow Finalized by Dr Andriy Norton MD [facility] on 06/27/2021 09:16 PM Cath Workflow Finalized by Dr Andriy Norton MD [facility] on 06/27/2021 09:16 PM
--- NOTE | 2021-06-27 07:12 | W.PM.OPSUD ---
Surgery/Procedure H&P Update DATE OF PROCEDURE: June 27, 2021 DATE H&P PERFORMED: 06/27/21 H&P UPDATE INFORMATION: I have reviewed H&P completed within last 30 days and I have examined patient prior to procedure PREOP DIAGNOSIS: ASHD/ NOn healinag ulcer in the left leg PRIMARY INDICATION FOR PROCEDURE: chest pain and non healing ulcer PLANNED PROCEDURE: Operation Date: 06/27/21 07:00 Proposed Procedures p Peripheral Diagnostic(Bilateral) - Andriy Norton MD PATIENT REASSESSED PRIOR TO SEDATION, WITH NO CHANGE NOTED: Yes PHYSICAL EXAM: alert, oriented x 3, clear to auscultation bilaterally, regular rate & rhythm and operative site marked AIRWAY EVAL/ANESTHESIA PLAN: normal airway, see other exam findings, ASA III, Monitored Anesthesia, Local Anesthesia, Risks, benefits & alternatives of sedation and/or procedure discussed and Patient agrees to continue as planned
--- NOTE | 2021-06-27 07:14 | PM.HP ---
Providers/Chief Complaint Primary Care Provider: Denise Leon Chief Complaint: [id number] [id number] History of Present Illness Lacey Contreras is a 75 year old female with a history of atherosclerotic heart disease and peripheral artery disease, presenting with the increasing episodes of chest pain and a nonhealing ulcer on the left leg. She was found to have features of stenosis in the left common femoral artery of more than 70%. She has exertional claudication as well. She is known to have disease in the right coronary artery which was moderate by angiogram before. Lately the pain has been getting worse. Patient has been having recurrent episodes of ulcerations in the left leg. In view of her ongoing chest symptoms and the recurrent nonhealing ulcers of the left leg, for further evaluation of her coronary status as well as the peripheral arterial status, a coronary angiogram and and peripheral angiogram with possible intervention was discussed. Because the patient's history of chronic kidney disease, she carries a high risk for contrast-induced nephropathy. This also was discussed in detail. Patient and her family (daughter )understood these issues well and consented to proceed Review of Systems Narrative: CONSTITUTIONAL: No fever or chills. EYES: No blurring of vision or other visual disturbances lately. ENT: No hoarseness of voice, auditory disturbances or sore throat. CARDIOVASCULAR: As mentioned above. RESPIRATORY: No significant cough. GASTROINTESTINAL: No hematemesis or melena. GENITOURINARY: No dysuria or hematuria. INTEGUMENTARY: Recurrent the skin ulcers to the left lower extremity NEURO: No transient ischemic attacks or amaurosis. PSYCHIATRIC: No history of psychosis or major depression. HEMATOLOGIC: No bleeding disorders or significant anemia. ENDOCRINE: Type 2 diabetes, insulin requiring MUSCULOSKELETAL: No recent joint pain or swelling. ALLERGY/IMMUNOLOGY: As mentioned above. Medications/Allergies Home Medications Medication Instructions Recorded Confirmed Last Taken Type atorvastatin 20 mg tablet 20 mg PO DAILY 11/15/19 06/27/21 06/26/21 18:00 History budesonide-formoterol HFA 80 2 puff INHALATION BID PRN 11/15/19 06/27/21 06/26/21 18:00 History mcg-4.5 mcg/actuation aerosol inhaler cholecalciferol (vitamin D3) 25 1,000 unit PO DAILY 11/15/19 06/27/21 06/26/21 18:00 History mcg (1,000 unit) capsule glucosamine 500 1 cap PO DAILY 11/15/19 06/27/21 06/26/21 09:00 History dh-olamqqkhz-smgkwyze comp 400 mg-D3 667 unit-C-Mn cap acetaminophen [Tylenol Extra 1,000 mg PO BEDTIME 02/06/20 06/27/21 04/20/20 History Strength] cetirizine [Zyrtec] 10 mg PO DAILY PRN 02/06/20 06/27/21 Unknown History multivitamin [Multiple Vitamins] 1 tab PO DAILY 02/06/20 06/27/21 06/26/21 09:00 History vitamin E 1 cap PO DAILY 02/06/20 06/27/21 06/26/21 09:00 History metformin 500 mg PO BID 04/21/20 06/27/21 06/25/21 18:00 History ascorbate calcium (vitamin C) 500 500 mg PO DAILY 07/20/20 06/27/21 06/26/21 09:00 History mg tablet calcium 600 mg-D3 800 unit-mag11 2 tab PO DAILY tab 07/20/20 06/27/21 06/26/21 09:00 History 50 mm-oiid-vshejg-georgi-s.borat tablet gabapentin 300 mg capsule 300 mg PO BID cap 07/20/20 06/27/21 06/26/21 18:00 History albuterol sulfate 2.5 mg INHALATION Q4H PRN 09/05/20 06/27/21 Unknown History insulin regular human 100 unit/mL See Rx Instructions .ROUTE .COMPLEX 09/05/20 06/27/21 06/26/21 18:00 History injection solution spironolactone 25 mg tablet 25 mg PO DAILY 09/05/20 06/27/21 06/26/21 09:00 History torsemide 20 mg tablet 20 mg PO DAILY #30 tab 12/14/20 06/27/21 06/26/21 09:00 Rx isosorbide mononitrate 60 mg 60 mg PO BID #180 tab 02/16/21 06/27/21 06/26/21 18:00 Rx tablet,extended release 24 hr tramadol 50 mg tablet 50 mg PO Q8H PRN 02/28/21 06/27/21 Unknown History clopidogrel 75 mg tablet 75 mg PO DAILY #30 tab 03/31/21 06/27/21 06/27/21 05:00 Rx famotidine 20 mg tablet 20 mg PO DAILY tab 04/09/21 06/27/21 06/26/21 09:00 History metoprolol tartrate 50 mg tablet See Rx Instructions .ROUTE 06/25/21 06/27/21 06/27/21 05:00 Rx .COMPLEX #180 tab Allergies Allergy/AdvReac Type Severity Reaction Status Date / Time Penicillins Allergy Severe ALGY-Rash Verified 06/27/21 06:50 cephalexin [From Keflex] Allergy Intermediate ADR-Shakine Verified 06/27/21 06:50 ss levofloxacin [From Levaquin] Allergy Intermediate ALGY-Hives Verified 06/27/21 06:50 hydrocodone AdvReac Intermediate hallucinations, Verified 06/27/21 06:50 drowsiness, PFSH Acute PFSH: Medical History Abnormal electrocardiogram [ECG] [EKG] Aortic valve stenosis Arthritis Atherosclerotic heart disease of [place] coronary artery without angina pectoris Atypical chest pain EKG done on 15 March 2019 revealed a sinus rhythm with poor however progression. Minimal left axis deviation. No acute ST-T changes. These findings are essentially unchanged from 2017. COPD (chronic obstructive pulmonary disease) Diabetes Dyspnea and respiratory abnormalities HTN (hypertension) Leg swelling SOB (shortness of breath) Surgical History H/O section S/P cholecystectomy Family History Father , of [place] at 77, started in his 40s CAD (coronary artery disease) Diabetes Mother , Had CABG in the 70s CAD (coronary artery disease) Cancer Grandfather , of [place] in the 70s Dementia Lung disease Stroke Sister Atrial fibrillation Grandmother Clotting disorder Diabetes Brother Cancer Family/Other Chronic kidney disease (CKD) Diabetes Stroke Suicide Denies family history of Anesthesia complication Bleeding disorder Social History Smoking and tobacco status: former smoker Alcohol intake: never Marital status: Current occupational status: disabled Vitals/I&O/Wt Last Vital Signs Temp 98.4 F 06/27/21 06:00 Pulse 76 06/27/21 06:00 Resp 15 06/27/21 06:00 BP 167/84 06/27/21 06:00 Pulse Ox 96 06/27/21 06:00 Weight last 48 hrs Weight 206 lb Physical Exam Narrative: EXAM NARRATIVE: GENERAL: The patient is alert and oriented times three. Not in any acute distress. HEENT: No significant pallor, icterus or lymphadenopathy.Oral cavity: There are no mucous membrane lesions. NECK: Trachea appears to be central. No masses noted. No JVD or thyromegaly appreciated. RESPIRATORY: Chest is symmetrical. No intercostals muscle retraction or any accessory muscle activation. There is no chest wall tenderness. Breath sounds are heard bilaterally. No rales or rhonchi heard. No evidence of any consolidation. BREASTS: Deferred. HEART: The heart sounds are normal. No S3 or S4. Ejection Stolle murmur grade 3 or 6 in the aortic area. No diastolic murmurs. No pericardial rub ABDOMEN: No vessel pulsations or distention. No tenderness. No organomegaly appreciated. Bowel sounds are normally heard. : Deferred. RECTAL: Deferred. LYMPHATIC: No lymphadenopathy noted in the neck or groin. EXTREMITIES: Features of chronic arterial insufficiency bilaterally in the lower extremity. Multiple nonhealing ulcers in the left leg. Chronic redness in both legs in the lower aspect. Peripheral pulses are extremely weak bilaterally MUSCULOSKELETAL: No acute joint deformities or swelling SKIN: There are no significant rashes or ecchymosis NEUROPSYCHIATRIC: The patient is alert and oriented x3. Appears to be in a good mood. No tremors or rigidity noted. Data US Vascular: My impression: Lower extremity arterial Doppler examination Features suggestive of greater than 70% stenosis at the left common femoral artery Moderate diffuse plaques in the iliac .femoral and popliteal arteries bilaterally Possible total occlusion of the left dorsalis pedis artery. ABIs could not be obtained No similar previous studies are available for comparison A&P Assessment and plan (1) Non-healing ulcer: In view of the patient's recurrent ulcerations of the left lower leg, and abnormal arterial Doppler examination, in order to further evaluate her peripheral arterial status, a peripheral angiogram would be appropriate. The risk of bleeding, hematoma, vascular injury, myocardial infarction, CVA, renal failure and other concomitant complications were explained in detail. Patient understood this well and consented to proceed. Status: Acute Qualifiers: Non-pressure ulcer stage: limited to breakdown of skin Qualified Code(s): L98.491 - Non-pressure chronic ulcer of skin of other sites limited to breakdown of skin (2) Peripheral arterial disease: As mentioned above Status: Acute (3) Atherosclerotic heart disease of [place] coronary artery without angina pectoris: Because of the patient increasing episodes of chest pains, in order to further evaluate her coronary status, a coronary angiogram along with the peripheral angiogram was told to be appropriate. This was discussed with the patient and family in detail which is understood well and consented to proceed. Status: Acute Qualifiers: [place] vs. transplanted heart: [place] heart Qualified Code(s): I25.10 - Atherosclerotic heart disease of [place] coronary artery without angina pectoris (4) Chronic kidney disease: The latest creatinine was 1.1. Patient is known to have reduced GFR. Contrast-induced nephropathy was discussed in detail which is understood well. Status: Acute Qualifiers: Chronic kidney disease stage: stage 3 (moderate) Chronic kidney disease stage 3 subtype: stage 3a (GFR 45-59) Qualified Code(s): N18.31 - Chronic kidney disease, stage 3a Additional A&P Information Patient also is known to have diabetes and a? Dyslipidemia. 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 transplanted heart: [place] heart Chronic kidney disease N18.31 Chronic kidney disease stage: stage 3 (moderate) Chronic kidney disease stage 3 subtype: stage 3a (GFR 45-59)
--- NOTE | 2021-06-27 08:50 | SUR.PHASEI ---
HOLDING NOTE Patient to CPRU 3 for holding pending bed availibility in ICU-1. 5 FR venous sheath and 6FR arterial sheath to right groin. Reported off that both lines are ready to be pulled out. No hematoma to access site noted at this time. Lines removed using sterile technique starting with the arterial and then proceeding with venous removal 5 minutes later. Sites held until hemostasis achieved. 20 minutes arterial hold/15 minutes venous hold. Removed and dressed per usual sterile fashion. Verbal post cath instructions went over with the patient and the faimily who is at bedside post removal. Will monitor for awhile prior to moving to ICU as the sheaths are newly removed. Call light in reach. Informed to call for needs.
--- NOTE | 2021-06-27 08:50 | SUR.PHASEI ---
POST OP FLUIDS IV 0.9% NS AT 75 ML/HR ORDERED POST OP.
--- NOTE | 2021-06-27 13:51 | SUR.PHASEI ---
REPORT Patient transferred to the first floor via bed. Report to Laura PATEL. Family at bedside with belongings.
[2021-06-27] MEDS: cholecalciferol (vitamin D3) 1,000 unit Tablet 1000 UNIT PO (15:11)
[2021-06-27] MEDS: TRAMadol 50 mg Tablet PO (15:11)
[2021-06-27] MEDS: clopidogrel 75 mg Tablet PO (15:12)
[2021-06-27] MEDS: TORSEmide 20 mg Tablet PO (15:12)
[2021-06-27] MEDS: ascorbic acid 500 mg Tablet PO (15:12)
[2021-06-27] MEDS: multivitamin therapeutic Tablet 1 TAB PO (15:12)
[2021-06-27] MEDS: spironolactone 25 mg Tablet PO (16:01)
[2021-06-27 16:38] LABS: Glucose Point of Care 212 mg/dL (70-110)
[2021-06-27] MEDS: insulin lispro 100 unit/1 mL 27 UNIT SUBCUT (17:17)
[2021-06-27] MEDS: metoprolol tartrate 50 mg Tablet PO (17:17)
[2021-06-27] MEDS: isosorbide mononitrate ER 60 mg Tablet PO (17:17)
[2021-06-27] MEDS: gabapentin 300 mg Capsule PO (17:17)
[2021-06-27] MEDS: sodium chloride 0.9% 1,000 ML 75 ML IV (17:33)
[2021-06-28 03:26] VITALS: BP 142/62; PULSE 76; RESP 22; TEMP 36.1; O2SAT 93
[2021-06-28 04:40] VITALS: PULSE 70
[2021-06-28 07:21] VITALS: BP 158/59; PULSE 75; RESP 16; TEMP 36.4; O2SAT 98
[2021-06-28] MEDS: insulin lispro 100 unit/1 mL 37 UNIT SUBCUT (07:47)
[2021-06-28] MEDS: isosorbide mononitrate ER 60 mg Tablet PO (07:54)
[2021-06-28] MEDS: multivitamin therapeutic Tablet 1 TAB PO (07:54)
[2021-06-28] MEDS: spironolactone 25 mg Tablet PO (07:54)
[2021-06-28] MEDS: TORSEmide 20 mg Tablet PO (07:54)
[2021-06-28] MEDS: atorvastatin 40 mg Tablet 20 MG PO (07:54)
[2021-06-28] MEDS: metoprolol tartrate 50 mg Tablet PO (07:54)
[2021-06-28] MEDS: cholecalciferol (vitamin D3) 1,000 unit Tablet 1000 UNIT PO (07:54)
[2021-06-28] MEDS: clopidogrel 75 mg Tablet PO (07:55)
[2021-06-28] MEDS: ascorbic acid 500 mg Tablet PO (07:55)
[2021-06-28] MEDS: famotidine 20 mg Tablet PO (07:55)
[2021-06-28] MEDS: gabapentin 300 mg Capsule PO (07:55)
[2021-06-28] MEDS: TRAMadol 50 mg Tablet PO (07:55)
[2021-06-28 09:53] LABS: Anion Gap 20.2 (5-19); Blood Urea Nitrogen 30 mg/dL (8-23); Calcium 8.5 mg/dL (8.5-10.5); Carbon Dioxide 24 mmol/L (22-29); Chloride 98 mmol/L (98-107); Glucose 178 mg/dL (65-115); Osmolality Calculated 297 mOsm/kg (285-295); Potassium 4.2 mmol/L (3.5-5.1); Sodium 138 mmol/L (136-145)
--- NOTE | 2021-06-28 10:25 | PC.CHAP ---
Pastoral Care Encounter/Spiritual Assessment Type of Contact [] Declined revenue director visit [] Patient/Family/Request visit [] Outpatient visit [] Follow-up visit [] Physician referral [] Code/Alert [x] Routine visit [] Staff referral [] Actively dying [] Patient sleeping [] Family support [] [] Out of room [] Palliative care [] [x] Receiving care in room [] Pre-surgical visit [] Trauma [] Long length of stay [] ICU visit [] Other: Relational/Emotional Strength [x] Patient feels connected with others/family/visitors/staff [] Distress [] Loneliness/isolation [] Abandonment Spirituality of Patient [x] Person of [place] [] Attends [facility] of their [place] [x] Believes in Prayer [] Reads Bible or Restoration materials [] There are Spiritual issues to be addressed Retail Chain Store Area Supervisor Interventions [x] Prayer [x] Active listening [x] Non-anxious presence [x] Spiritual/emotional support [] Crisis/trauma care [x] Spiritual counseling [] Bereavement support [] Provided bereavement packet [] Provided Bible/devotional materials [] Provided toy/stuffed animal, coloring book to patient or family member [] Provided Communion [] Anointing/[place] [] Salvation [x] Completed spiritual assessment [] Other: Impact on Illness or Injury [] Angry [] Fearful [] Anxious [] Often cries [] Exhaustion [] Unable to work [] Unable to attend oriental orthodox [] Unable to walk/stand [] Unable to read [] Unable to drive [] Unable to eat/drink [] Unable to sleep [] Unable to be with family [] Patient intubated [] Other: Summary has a positive attitude feels good and is going home today Time spent with patient 10 mins
[2021-06-28 11:17] VITALS: BP 136/66; PULSE 73; RESP 18; TEMP 36.9
--- NOTE | 2021-06-28 11:22 | PM.DCS ---
Discharge Providers Date of Discharge: June 28, 2021 Attending Provider at Discharge: Andriy Norton MD Primary Care Provider: Denise Leon Diagnoses at Discharge Discharge Diagnosis (1) Non-healing ulcer: Status: Acute Qualifiers: Non-pressure ulcer stage: limited to breakdown of skin Qualified Code(s): L98.491 - Non-pressure chronic ulcer of skin of other sites limited to breakdown of skin (2) Peripheral arterial disease: Status: Acute (3) Atherosclerotic heart disease of [place] coronary artery without angina pectoris: Status: Acute Qualifiers: [place] vs. transplanted heart: [place] heart Qualified Code(s): I25.10 - Atherosclerotic heart disease of [place] coronary artery without angina pectoris (4) Chronic kidney disease: Status: Acute Qualifiers: Chronic kidney disease stage: stage 3 (moderate) Chronic kidney disease stage 3 subtype: stage 3a (GFR 45-59) Qualified Code(s): N18.31 - Chronic kidney disease, stage 3a Reason for Visit Reason for Visit: 93743 i73.9 Physical Exam Narrative: EXAM NARRATIVE: GENERAL: The patient is alert and oriented times three. Not in any acute distress. HEENT: No significant pallor, icterus or lymphadenopathy.Oral cavity: There are no mucous membrane lesions. NECK: Trachea appears to be central. No masses noted. No JVD or thyromegaly appreciated. RESPIRATORY: Chest is symmetrical. No intercostals muscle retraction or any accessory muscle activation. There is no chest wall tenderness. Breath sounds are heard bilaterally. No rales or rhonchi heard. No evidence of any consolidation. BREASTS: Deferred. HEART: The heart sounds are normal. No S3 or S4. Ejection Stolle murmur grade 3 or 6 in the aortic area. No diastolic murmurs. No pericardial rub ABDOMEN: No vessel pulsations or distention. No tenderness. No organomegaly appreciated. Bowel sounds are normally heard. : Deferred. RECTAL: Deferred. LYMPHATIC: No lymphadenopathy noted in the neck or groin. EXTREMITIES: Features of chronic arterial insufficiency bilaterally in the lower extremity. Multiple nonhealing ulcers in the left leg. Chronic redness in both legs in the lower aspect. Peripheral pulses are extremely weak bilaterally MUSCULOSKELETAL: No acute joint deformities or swelling SKIN: There are no significant rashes or ecchymosis NEUROPSYCHIATRIC: The patient is alert and oriented x3. Appears to be in a good mood. No tremors or rigidity noted. Const: COMMON NORMALS: alert Resp: COMMON NORMALS: clear to auscultation bilaterally AUSCULTATION: clear to auscultation bilaterally Neuro: SENSORIUM/ORIENTATION: Yes alert Discharge Data Data Completed and Pending: Completed Studies During Hospitalization Category Date Time Status FLAMER AFTER LASTING request for service Routin e Exams 06/27/21 06:00 Completed Labs from last 24 hours 06/28/21 06/27/21 09:10 16:12 Sodium 138 Potassium 4.2 Chloride 98 Carbon Dioxide 24 Anion Gap 20.2 H BUN 30 H Creatinine 1.2 H GFR Calculation Not Reportable Glucose 178 H POC Glucose 212 H Calculated Osmolal ity 297 H Calcium 8.5 Vitals: Laboratory Last Values Sodium 138 mmol/L (136-1 45) 06/28/21 09:10 Potassium 4.2 mmol/L (3.5-5 .1) 06/28/21 09:10 Chloride 98 mmol/L (98-107 ) 06/28/21 09:10 Carbon Dioxide 24 mmol/L (22-29) 06/28/21 09:10 Anion Gap 20.2 (5-19) H 06/28/21 09:10 BUN 30 mg/dL (8-23) H 06/28/21 09:10 Creatinine 1.2 mg/dL (0.5-0. 9) H 06/28/21 09:10 GFR Calculation Not Reportable 06/28/21 09:10 Glucose 178 mg/dL (65-115 ) H 06/28/21 09:10 POC Glucose 212 mg/dL (70-110 ) H 06/27/21 16:12 Calculated Osmolal ity 297 mOsm/kg (285- 295) H 06/28/21 09:10 Calcium 8.5 mg/dL (8.5-10 .5) 06/28/21 09:10 Last Vital Signs Temp 98.4 F 06/28/21 11:17 Pulse 73 06/28/21 11:17 Resp 18 06/28/21 11:17 BP 136/66 06/28/21 11:17 Pulse Ox 98 06/28/21 07:21 Discharge Plan Discharge Patient Disposition: Home Prescriptions: Held metformin 500 mg tablet 500 mg PO BID RF: 0 Hold Instructions: Resume on 12/09/20. No Action tramadol 50 mg tablet 50 mg PO Q8H PRN (Reason: Pain) RF: 0 Symbicort 80-4.5 mcg/actuation HFA aerosol inhaler 2 puff INHALATION BID PRN (Reason: Shortness Of Breath) RF: 0 atorvastatin 20 mg tablet 20 mg PO DAILY RF: 0 cholecalciferol (vitamin D3) 25 mcg (1,000 unit) capsule 1,000 unit PO DAILY RF: 0 Suvcsydyohe-Xgkqmh-G9 (C-georgi) 500-400-667 mg-mg-unit capsule 1 cap PO DAILY RF: 0 ascorbate calcium (vitamin C) 500 mg tablet 500 mg PO DAILY RF: 0 xed-G1-[id number]-kexw-brx-apau-tre 600 mg calcium- 800 unit-50 mg tablet 2 tab PO DAILY RF: 0 gabapentin 300 mg capsule 300 mg PO BID RF: 0 albuterol sulfate 2.5 mg /3 mL (0.083 %) solution for nebulization 2.5 mg inhalation Q4H PRN (Reason: Shortness Of Breath) RF: 0 spironolactone 25 mg tablet 25 mg PO DAILY RF: 0 Hold Instructions: Resume on 12/09/20. famotidine 20 mg tablet 20 mg PO DAILY RF: 0 torsemide 20 mg tablet 20 mg PO DAILY Qty: 30 RF: 4 isosorbide mononitrate 60 mg tablet extended release 24 hr 60 mg PO BID Qty: 180 RF: 3 clopidogrel 75 mg tablet 75 mg PO DAILY Qty: 30 RF: 3 metoprolol tartrate 50 mg tablet See Rx Instructions .ROUTE .COMPLEX Qty: 180 RF: 2 multivitamin [Multiple Vitamins] Tablet 1 tab PO DAILY RF: 0 cetirizine [Zyrtec] 10 mg Tablet 10 mg PO DAILY PRN (Reason: Allergy Symptoms) RF: 0 acetaminophen [Tylenol Extra Strength] 500 mg Tablet 1,000 mg PO BEDTIME RF: 0 vitamin E 1 cap PO DAILY RF: 0 Novolin R Regular U-100 Insuln 100 unit/mL solution See Rx Instructions .ROUTE .COMPLEX RF: 0 Discharge Orders: Discharge Order (Routine); Ordered 06/28/21 Ordered By: Andriy Norton Referrals: Andriy Norton MD [Physician] - 07/11/21 11:00 am (Already scheduled cardiology followup with Dr. Norton.) [place],Shey, TOOL GRINDING TECHNICIAN [Nurse Practitioner] - 07/09/21 3:15 pm (Post Procedure Followup) Diet: Advance as tolerated Activity: Increase activity as tolerated Patient Instructions: Chronic Kidney Disease (DC), Peripheral Artery Disease (DC), Peripheral Vascular Angioplasty (DC), Post Angiogram Home Care Instructions Activity Restrictions/Additional Instructions: Avoid any weight lifting or climbing stairs for the next 3 days. Make an appointment with Dr. Gates for the peripheral intervention Appointment the [facility] next week to be seen by the nurse practitioner I may see her in the office as scheduled Discharge Date/Time: 06/28/21 13:33 Discharge Attestations Time Spent in Discharge Care*: greater than 30 min Quality Metrics Clinical Quality Measures During this hospital stay, did patient experience: None Coding Level of Care Code Acute Chg FW DC note Exam Expanded Problem Focused Diagnoses Non-healing ulcer L98.491 Non-pressure ulcer stage: limited to breakdown of skin Peripheral arterial disease I73.9 Atherosclerotic heart disease of [place] coronary artery without angina pectoris I25.10 [place] vs. transplanted heart: [place] heart Chronic kidney disease N18.31 Chronic kidney disease stage: stage 3 (moderate) Chronic kidney disease stage 3 subtype: stage 3a (GFR 45-59)
--- NOTE | 2021-06-28 13:31 | PC.NURSE ---
d/c instructions provided to patient. No questions or concerns. Follow up appointments made. VS stable upon departure.
== END 2021-06-28 13:33 | disposition home or self-care (01) ==
LOC: CCL 06:02 → ICU 09:16 → CSU 10:34
PROVIDERS: Internal Medicine; PCP Nurse Practitioner Family; Visit Provider Internal Medicine Cardiovascular Disease
DX: I25.10 Atherosclerotic heart disease of native coronary artery without angina pectoris (principal); I73.9 Peripheral vascular disease, unspecified; N18.31 Chronic kidney disease, stage 3a; L97.921 Non-pressure chronic ulcer of unspecified part of left lower leg limited to breakdown of skin; I12.9 Hypertensive chronic kidney disease with stage 1 through stage 4 chronic kidney disease, or unspecified chronic kidney disease; Z87.891 Personal history of nicotine dependence
CPT/HCPCS: 36415; 36416; 75625; 75716; 80048; 82962; 93452; 96372; C1769; C1887; C1894; J1644; J1815; J2250; J3010; J3490; J7030; Q9967

== ENCOUNTER → 2021-07-09 16:19 | Outpatient (BNVA) | payer MEDICARE, MEDICAID, SELFPAY | PROVIDERS: PCP Nurse Practitioner Family; Visit Provider Nurse Practitioner Family | DX: I73.9 Peripheral vascular disease, unspecified (principal) | CPT/HCPCS: 80048 ==

== ENCOUNTER → 2021-07-24 10:33 | Outpatient (BNVA) | payer MEDICARE, MEDICAID, SELFPAY | PROVIDERS: PCP Nurse Practitioner Family; Referring Provider Internal Medicine; Visit Provider Internal Medicine | DX: E87.5 Hyperkalemia (principal); Z01.818 Encounter for other preprocedural examination; E11.65 Type 2 diabetes mellitus with hyperglycemia; I10 Essential (primary) hypertension; Z79.4 Long term (current) use of insulin | CPT/HCPCS: 80048; 85025; 85610; 87635 ==

== ENCOUNTER 2021-07-30 10:03 | Observation (INO) | payer MEDICARE, MEDICAID, SELFPAY ==
[2021-07-30] VITALS (42 sets, daily range): BP systolic 94–153; BP diastolic 47–105; PULSE 71–82; RESP 15–20; TEMP 36.6–36.8; O2SAT 96–100; BMI 41.5
--- NOTE | 2021-07-30 07:30 | XACV_ITS ---
Wt: 93 kg BSA: 2.03 m2 Any Known Allergies: Hydrocodone Gender: Female : 1945 Exam Type: Invasive Peripheral Vascular Procedure(s): Procedure Description: Peripheral Cath Diagnostic Procedure Procedure Description: Lower extremities' angiography Exam Priority: Routine Lower Extremity Diagnostic Findings This was a staged interventional procedure, for complete diagnostic peripheral angiogram report please refer to procedure report from 06/27/2021. Lower Extremity Interventional Findings Procedure detail: We obtained access and left PT. Using Glidewire and seeker support catheter attempt was made to cross distal SFA totally occluded area. Glidewire and support catheter went subintimally. Hand-injection from the support catheter showed extravasation of contrast in the thigh. Pressure was held for 20 minutes. Access was obtained from right common femoral artery. We used UF catheter to perform run off of the left lower extremity to confirm absence of active bleeding. No further extravasation was noted. PT sheath and right common femoral sheath were removed and pressure was held. 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 Conclusions Unsuccessful revascularization attempt of left SFA from PT access. Recommendations Treatment options will include medical therapy vs bypass vs revascularizing left common femoral calcified stenosis and improving collateral blood flow to below the knee vessels percutaneously. Transfer to CSU. Patient will be observed overnight. Outpatient follow up in 7-10 days. Hemodynamic Data Phase:Rest AO : 145.0 / 48.0 ( 87.0 ) @ 7:30:00 AM Access Site Site: Left Pedal Sheath Size: 6 Fr Hemost... Method: Manual Compression Hemost... Success: Successful Site: Right Femoral artery Sheath Size: 6 Fr Hemost... Method: Manual Compression Hemost... Success: Successful Procedure Details Findings Procedure Consent Obtained. Pre-Procedure Time Out. Identified patient by full name and date of as verbalized by the patient/guarantor. Does the consent match the physician's order: Yes. Accurate & Complete Informed Consent: Yes. Inpatient/Outpatient History & Physical on Chart: Yes. If H&P is completed, is and addenduem needed: No; If yes, is the addendum complete: N/A. Visualize and Verify Site with Patient/Guarantor: N/A. Relevant Radiology Images available: N/A. Pre-op teaching completed and patient verbalized understanding. The risks, benefits, and alternatives of sedation and/or procedure were discussed by physician. The patient agrees to continue. Procedure started. Correct patient, site and procedure confirmed by cath team. PERRLA. Strong, equal hand company manager bilaterally. Lungs clear x 5 lobes. IV Site on Arrival: 20 gauge in the left upper arm. IV Fluids: 0.9% NaCl at KVO. 0 mL infused prior to carpenter labor supervisor. Pre Procedural Pulses: bilateral posterior tibial was Doppled. Oxygen started at 2liters/min via nasal canula. Pre Procedural Pulses: bilateral radial was Doppled. bilateral groins was prepped with chloroprep then draped in the usual sterile fashion. Baseline sample Acquired. HR: 0 BPM. Physician arrived. Equipment: Peripheral. Cardiac Cath Pack. ACIST Manifold Kit Model BT 2000. Heparinized Saline (2 units/mL), 1000 mL bag. Left PT area was prepped with chloroprep then draped in the usual sterile fashion. Baseline sample Acquired. HR: 79 BPM. Physician scrubbed in. Immediate Pre-Procedure Time Out. Correct Patient: Yes; Correct Procedure: Yes; Correct Site: Yes; Correct Patient Position: Yes; Correct Supplies: Yes; Dried Flammable Prep: Yes; Blood Products Available: N/A;. Physician using ultrasound machine to assist with gaining access in left pedal artery. Lidocaine 1% infiltrated to the left pedal. Arterial access obtained with micropuncture set. Lidocaine 1% infiltrated to the left pedal. Glidewire inserted. Seeker Support catheter in over the glidewire. Glidewire out. Hand injection of the left PT. Glidewire inserted. Glidewire out. Hand injection of the left PT. Glidewire inserted. Glidewire out. Hand injection through the SEEKER above the knee. Glidewire inserted. Glidewire out. Hand injection through the SEEKER above the knee. Hand injection through the SEEKER above the knee. SEEKER catheter out. Physician moving to femoral approach. Lidocaine 1% infiltrated to the right groin. Arterial access obtained with micropuncture set. A 5Fr UF catheter in over wire. Blood pressure cuff applied to left thigh. Standard wire out. Glidewire inserted. Cuff down. PT went apneic. Sedation reversal medications given and ventilated with AMBU bag. A 5FrFr UF catheter in over wire. Wire out. Left leg runoff through UF catheter. Catheter removed over the standard wire. Cuff reinflated to left thigh. Dr Gates scrubbed out. A Manual Compression was successful obtaining hemostatsis at the Right Femoral artery insertion site. Sheath(s) removed and manual pressure held until hemostasis was achieved. Sterile 4x4 and Op-site applied to the puncture site. No oozing or hematoma noted. Post sheath removal instructions were given and the patient verbalized understanding. Post Procedure: Pulses reassessed and unchanged. PERRLA. Strong, equal hand company manager bilaterally. No VTE prophylaxis required. Post-op diagnosis: occluded mid to distal left SFA. Complications: none. A Manual Compression was successful obtaining hemostatsis at the Left Pedal insertion site. Contrast type used: Visipaque 320 mgI/mL, 500 mL bottle. Medication's Wasted: Lidocaine 1% = 10 mL. Medication's Wasted: Heparin = 1000 units. Total IV fluids: 200 mL. Estimated blood loss: 5mL-10mL. Responsiveness - Normal response to verbal stimuli; alert and oriented, PERRLA. Airway - Unaffected, no intervention required; spontaneous ventilation. Circulation: W/N/L, pulses unchanged. Nausea/Vomiting: No. Procedure completed. Patient transferred by bed to 1st floor. Vital chart was stopped. Procedure Medications Start: 8:34 AM Stop: 8:34 AM Medication: Versed Amount: 1 mg Route: I.V. Start: 8:34 AM Stop: 8:34 AM Medication: Fentanyl Amount: 50 mcg Route: I.V. Start: 9:09 AM Stop: 9:09 AM Medication: Versed Amount: 1 mg Route: I.V. Start: 9:09 AM Stop: 9:09 AM Medication: Fentanyl Amount: 50 mcg Route: I.V. Start: 9:18 AM Stop: 9:18 AM Medication: Fentanyl Amount: 50 mcg Route: I.V. Start: 9:19 AM Stop: 9:19 AM Medication: Versed Amount: 1 mg Route: I.V. Start: 9:32 AM Stop: 9:32 AM Medication: Narcan Amount: 0.4 mg Route: I.V. Start: 9:32 AM Stop: 9:32 AM Medication: Romazicon (flumazenil) Amount: 0.5 mg Route: I.V. I, the attending physician, have reviewed and verified all procedure medications. Yes, all medications given per verbal order History/Risk Factors Hypertension: Yes Dyslipidemia: No Peripheral Arterial Disease (PAD): Yes Obesity: Yes Renal Disease: No Tobacco Use: Never Prior Interventions PCI: No CABG: No Valve Surgery: No Report Signatures Finalized by Ken Gates MD on 08/08/2021 12:44 PM
[2021-07-30] MEDS: diphenhydrAMINE 50 mg Capsule PO (08:00)
--- NOTE | 2021-07-30 09:51 | P.HP_ITS ---
Same Day Surgery H&P Indication for Procedure/HPI DATE OF PROCEDURE: July 30, 2021 CHIEF COMPLAINT/INDICATIONFOR SURGICAL PROCEDURE: Peripheral artery disease/Non healing ulcer on the left foot PREOP DIAGNOSIS: Severe peripheral artery disease/ non-healing ulcer on left lower extremity PLANNED PROCEDRUE: Operation Date: 07/30/21 08:30 Proposed Procedures p Peripheral Diagnostic(Bilateral) with percutaneous intervention- Ken Gates M.D 75 year old female with a history of atherosclerotic heart disease and perip heral artery disease, presenting with the increasing episodes of chest pain and a nonhealing ulcer on the left leg. She was found to have features of stenosis in the left common femoral artery of more than 70%. She also had totally occluded mid to distal SFA. Intervention attempt was unsuccessful from a right common femoral artery access ended today plan is to perform it from pedal access. She has exertional claudication as well. ROS CONSTITUTIONAL: No fever chills weight loss or gain or night sweats. [] HEENT: Normocephalic, atraumatic.[] RESPIRATORY: No cough, sputum, hemoptysis or wheezing.[] CARDIOVASCULAR: No shortness of breath, chest pain, PND, orthopnea, lower extremity edema, presyncope or syncope. [] GI: no nausea vomiting diarrhea. 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 [] MUSCULOSKELETAL: Has knee pain Medications/Allergies* Home Medications Medication Instructions Recorded Confirmed Type atorvastatin 20 mg tablet 20 mg PO DAILY 11/15/19 07/30/21 History budesonide-formoterol HFA 80 2 puff INHALATION BID PRN 11/15/19 07/30/21 History mcg-4.5 mcg/actuation aerosol inhaler cholecalciferol (vitamin D3) 25 1,000 unit PO DAILY 11/15/19 07/30/21 History mcg (1,000 unit) capsule glucosamine 500 1 cap PO DAILY 11/15/19 07/30/21 History ek-pigzsviii-iilkrxxs comp 400 mg-D3 667 unit-C-Mn cap acetaminophen [Tylenol Extra 1,000 mg PO BEDTIME 02/06/20 07/30/21 History Strength] cetirizine [Zyrtec] 10 mg PO DAILY PRN 02/06/20 07/30/21 History multivitamin [Multiple Vitamins] 1 tab PO DAILY 02/06/20 07/30/21 History vitamin E 1 cap PO DAILY 02/06/20 07/30/21 History metformin 500 mg PO BID 04/21/20 07/30/21 History ascorbate calcium (vitamin C) 500 500 mg PO DAILY 07/20/20 07/30/21 History mg tablet calcium 600 mg-D3 800 unit-mag11 2 tab PO DAILY tab 07/20/20 07/30/21 History 50 cc-ejex-moawag-georgi-s.borat tablet gabapentin 300 mg capsule 300 mg PO BID cap 07/20/20 07/30/21 History albuterol sulfate 2.5 mg INHALATION Q4H PRN 09/05/20 07/30/21 History insulin regular human 100 unit/mL See Rx Instructions .ROUTE .COMPLEX 09/05/20 07/30/21 History injection solution spironolactone 25 mg tablet 25 mg PO DAILY 09/05/20 07/30/21 History tramadol 50 mg tablet 50 mg PO Q8H PRN 02/28/21 07/30/21 History famotidine 20 mg tablet 20 mg PO DAILY tab 04/09/21 07/30/21 History Allergies/Adverse Reactions Allergy/AdvReac Type Severity Reaction Status Date / Time Penicillins Allergy Severe ALGY-Rash Verified 07/09/21 15:24 cephalexin [From Keflex] Allergy Intermediate ADR-Shakine Verified 07/09/21 15:24 ss levofloxacin [From Levaquin] Allergy Intermediate ALGY-Hives Verified 07/09/21 15:24 hydrocodone AdvReac Intermediate hallucinations, Verified 07/09/21 15:24 drowsiness, Pertinent History/Comorbid Conditions* Medical History (Updated 04/09/21 @ 15:43 by Andriy Norton MD) Abnormal electrocardiogram [ECG] [EKG] Aortic valve stenosis Arthritis Atherosclerotic heart disease of [place] coronary artery without angina pectoris Atypical chest pain EKG done on 15 March 2019 revealed a sinus rhythm with poor however progression. Minimal left axis deviation. No acute ST-T changes. These findings are essentially unchanged from 2017. COPD (chronic obstructive pulmonary disease) Diabetes Dyspnea and respiratory abnormalities HTN (hypertension) Leg swelling SOB (shortness of breath) Surgical History (Updated 11/15/19 @ 11:22 by Andriy Norton MD) H/O section S/P cholecystectomy Family History (Updated 11/06/20 @ 10:24 by Roxie Arriola RN) Father, of [place] at 77, started in his 40s Grandfather, of [place] in the 70s Mother, Had CABG in the 70s Diabetes Father Grandmother Family/Other CAD (coronary artery disease) Father Mother Clotting disorder Grandmother Atrial fibrillation Sister Dementia Grandfather Chronic kidney disease (CKD) Family/Other Suicide Family/Other Lung disease Grandfather Cancer Mother Brother Stroke Grandfather Family/Other Denies family history of Anesthesia complication Bleeding disorder Social History Alcohol intake: never Marital status: Current occupational status: disabled Pertinent Exam Findings alert, oriented x 3, clear to auscultation bilaterally and regular rate & rhythm Conscious Sedation Assessment PATIENT ASSESSED PRIOR TO SEDATION, WITH NO CHANGE NOTED: Yes AIRWAY EVAL/ANESTHESIA PLAN: normal airway, see other exam findings, ASA IV, Monitored Anesthesia, Local Anesthesia, Risks, benefits & alternatives of sedation and/or procedure discussed and Patient agrees to continue as planned Recommendations Surgery/Procedure today (Peripheral angiogram with possible percutaneous intervention) Coding Level of Care Code Acute Aviation Consultant for Radha Dalal
--- NOTE | 2021-07-30 10:00 | PM.PROC ---
Procedure Note: Date of procedure: 07/30/21 Pre-procedure diagnosis: Limiting claudication/nonhealing left lower extremity ulcer Post-procedure diagnosis: same Procedure: Peripheral angiogram Procedure performed from left PT access. Patient is right SFA totally occluded segment could not be crossed. There was some extravasation at the site. Pressure was held at the site. We obtained access on right common femoral artery and performed peripheral angiogram with runoff that showed there was no more extravasation seen. Good collateral blood supply below the knee was noted. Patient did have desaturation during the procedure and her sedation was reversed with Narcan and flumazenil. Her O2 sats normalized afterwards. Op report anesthesia: Other Performing Provider: Ken Gates Estimated blood loss (mL): 15 Pathology: none sent Condition: stable Disposition: floor Coding Level of Care Code Acute Director Of Materials Management for Radha Dalal
--- NOTE | 2021-07-30 10:20 | PC.NURSE ---
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 Pt right groin site had no swelling, hematoma or bleeding noted drsg dry and intact. Pts site to left ankle had no swelling hematoma or bleeding noted drsg dry and intact. Pt had no c/o pain or discomfort at the present time. No needs voiced. Call light in reach. Will cont to monitor.
[2021-07-30] MEDS: TRAMadol 50 mg Tablet PO (18:38)
[2021-07-30] MEDS: gabapentin 300 mg Capsule PO (18:38)
[2021-07-30] MEDS: sodium chloride 0.9% 1,000 ML 75 ML IV (18:39)
[2021-07-30] MEDS: acetaminophen 500 mg Tablet 1000 MG PO (21:44)
[2021-07-30] MEDS: metoprolol tartrate 50 mg Tablet PO (21:45)
[2021-07-31 05:29] VITALS: BP 133/78; PULSE 72; RESP 16; TEMP 36.6; O2SAT 95
[2021-07-31] MEDS: famotidine 20 mg Tablet PO (08:51)
[2021-07-31] MEDS: gabapentin 300 mg Capsule PO (08:51)
[2021-07-31] MEDS: TORSEmide 20 mg Tablet PO (08:53)
[2021-07-31] MEDS: clopidogrel 75 mg Tablet PO (08:53)
[2021-07-31] MEDS: spironolactone 25 mg Tablet PO (08:53)
[2021-07-31] MEDS: atorvastatin 40 mg Tablet 20 MG PO (08:53)
[2021-07-31 08:57] VITALS: BP 150/70; PULSE 77; RESP 18
[2021-07-31] MEDS: metoprolol tartrate 50 mg Tablet PO (08:58)
--- NOTE | 2021-07-31 09:16 | P.SS_ITS ---
Short Stay Summary Providers Date of Admit/Discharge: 07/30/21 Attending Provider: Ken Gates M.D Primary Care Provider: Denise Leon Chief Complaint: [id number] [id number] HPI History of Present Illness 75 year old female with a history of atherosclerotic heart disease and peripheral artery disease, presenting with left lower extremity claudication and a nonhealing ulcer on the left leg (improved and almost healed now but has recurrent episodes of difficult healing ulcers per her history). She was found to have features of stenosis in the left common femoral artery of more than 70%. She also had totally occluded mid to distal SFA. Intervention attempt was unsuccessful from a right common femoral artery access ended today plan is to perform it from pedal access. She has exertional claudication as well. Plan for intervention attempt from below the knee. Review of Systems General: Reports: 10 or more systems reviewed and unremarkable except in HPI and below Home Meds/Allergies Home Medications and Allergies Home Medications Medication Instructions Recorded Confirmed Type atorvastatin 20 mg tablet 20 mg PO DAILY 11/15/19 07/30/21 History budesonide-formoterol HFA 80 2 puff INHALATION BID PRN 11/15/19 07/30/21 History mcg-4.5 mcg/actuation aerosol inhaler cholecalciferol (vitamin D3) 25 1,000 unit PO DAILY 11/15/19 07/30/21 History mcg (1,000 unit) capsule glucosamine 500 1 cap PO DAILY 11/15/19 07/30/21 History vt-heqaxzdpy-kmioxhse comp 400 mg-D3 667 unit-C-Mn cap acetaminophen [Tylenol Extra 1,000 mg PO BEDTIME 02/06/20 07/30/21 History Strength] cetirizine [Zyrtec] 10 mg PO DAILY PRN 02/06/20 07/30/21 History multivitamin [Multiple Vitamins] 1 tab PO DAILY 02/06/20 07/30/21 History vitamin E 1 cap PO DAILY 02/06/20 07/30/21 History metformin 500 mg PO BID 04/21/20 07/30/21 History ascorbate calcium (vitamin C) 500 500 mg PO DAILY 07/20/20 07/30/21 History mg tablet calcium 600 mg-D3 800 unit-mag11 2 tab PO DAILY tab 07/20/20 07/30/21 History 50 vw-ndbq-cezter-georgi-s.borat tablet gabapentin 300 mg capsule 300 mg PO BID cap 07/20/20 07/30/21 History albuterol sulfate 2.5 mg INHALATION Q4H PRN 09/05/20 07/30/21 History insulin regular human 100 unit/mL See Rx Instructions .ROUTE .COMPLEX 09/05/20 07/30/21 History injection solution spironolactone 25 mg tablet 25 mg PO DAILY 09/05/20 07/30/21 History tramadol 50 mg tablet 50 mg PO Q8H PRN 02/28/21 07/30/21 History famotidine 20 mg tablet 20 mg PO DAILY tab 04/09/21 07/30/21 History Allergies Allergy/AdvReac Type Severity Reaction Status Date / Time Penicillins Allergy Severe ALGY-Rash Verified 07/09/21 15:24 cephalexin [From Keflex] Allergy Intermediate ADR-Shakine Verified 07/09/21 15:24 ss levofloxacin [From Levaquin] Allergy Intermediate ALGY-Hives Verified 07/09/21 15:24 hydrocodone AdvReac Intermediate hallucinations, Verified 07/09/21 15:24 drowsiness, PFSH Acute PFSH: Medical History Abnormal electrocardiogram [ECG] [EKG] Aortic valve stenosis Arthritis Atherosclerotic heart disease of [place] coronary artery without angina pectoris Atypical chest pain EKG done on 15 March 2019 revealed a sinus rhythm with poor however progression. Minimal left axis deviation. No acute ST-T changes. These findings are essentially unchanged from 2017. COPD (chronic obstructive pulmonary disease) Diabetes Dyspnea and respiratory abnormalities HTN (hypertension) Leg swelling SOB (shortness of breath) Surgical History H/O section S/P cholecystectomy Family History Father , of [place] at 77, started in his 40s CAD (coronary artery disease) Diabetes Mother , Had CABG in the 70s CAD (coronary artery disease) Cancer Grandfather , of [place] in the 70s Dementia Lung disease Stroke Sister Atrial fibrillation Grandmother Clotting disorder Diabetes Brother Cancer Family/Other Chronic kidney disease (CKD) Diabetes Stroke Suicide Denies family history of Anesthesia complication Bleeding disorder Social History Alcohol intake: never Marital status: Current occupational status: disabled Vitals/I&O/Wt Last Vital Signs Temp 97.8 F 07/31/21 05:29 Pulse 72 07/31/21 05:29 Resp 16 07/31/21 05:29 BP 133/78 07/31/21 05:29 Pulse Ox 95 07/31/21 05:29 07/30/21 07/31/21 07/31/21 22:59 06:59 14:59 Intake Total 270 / 270 622.5 / 892.5 Output Total 400 / 400 0 / 400 Balance -130 / -130 622.5 / 492.5 Weight last 48 hrs Weight 206 lb Physical Exam Narrative: EXAM NARRATIVE: GENERAL: Patient is alert, awake and oriented x3. [] NECK: No jugular vein distension. [] HEENT: No cyanosis. No icterus. No pallor. [] HEART: Regular S1 and S2. No murmur, rub or gallop. [] LUNGS: Clear to auscultate bilaterally. [] ABDOMEN: Soft, nontender and nondistended. Positive bowel sounds. No guarding, rebound or tenderness. [] CENTRAL NERVOUS SYSTEM: Grossly nonfocal. [] EXTREMITIES: Lower extremities with 1+ edema bilaterally. Diminshed pulses in left lower extremity Hospital Course Hospital Course 75 year old female with a history of atherosclerotic heart disease and peripheral artery disease, presenting with the increasing episodes of chest pain and a nonhealing ulcer on the left leg. She was found to have features of stenosis in the left common femoral artery of more than 70%. She also had totally occluded mid to distal SFA. Intervention attempt was unsuccessful from a right common femoral artery access. This time we performed procedure from retrograde approach from pedal access. However not able to cross through the distal SFA lesion. It went into dissection plane there was some extravasation noted. Pressure was held. Access was obtained from the right mid femoral artery and angiogram was performed that showed no further extravasation. Patient was kept in hospital overnight to observe and she stayed stable. No swelling was noted. Hemodynamically she was stable. She was discharged in a stable condition. Plan for discussion regarding bypass surgery versus perc utaneous revascularization of common femoral artery to improve collateral blood supply to below the knee vessels. 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 Routin e Exams 07/30/21 07:30 Taken Discharge Plan Discharge Patient Disposition: Home Condition: Stable Prescriptions: Continued tramadol 50 mg tablet 50 mg PO Q8H PRN (Reason: Pain) RF: 0 Symbicort 80-4.5 mcg/actuation HFA aerosol inhaler 2 puff INHALATION BID PRN (Reason: Shortness Of Breath) RF: 0 atorvastatin 20 mg tablet 20 mg PO DAILY RF: 0 cholecalciferol (vitamin D3) 25 mcg (1,000 unit) capsule 1,000 unit PO DAILY RF: 0 Hhpsfxxajjs-Jnsdla-A0 (C-georgi) 500-400-667 mg-mg-unit capsule 1 cap PO DAILY RF: 0 ascorbate calcium (vitamin C) 500 mg tablet 500 mg PO DAILY RF: 0 wld-[id number]-[id number]-ggxo-yqu-spkc-bca 600 mg calcium- 800 unit-50 mg tablet 2 tab PO DAILY RF: 0 gabapentin 300 mg capsule 300 mg PO BID RF: 0 albuterol sulfate 2.5 mg /3 mL (0.083 %) solution for nebulization 2.5 mg inhalation Q4H PRN (Reason: Shortness Of Breath) RF: 0 spironolactone 25 mg tablet 25 mg PO DAILY RF: 0 Hold Instructions: Resume on 12/09/20. famotidine 20 mg tablet 20 mg PO DAILY RF: 0 torsemide 20 mg tablet 20 mg PO DAILY Qty: 30 RF: 4 isosorbide mononitrate 60 mg tablet extended release 24 hr 60 mg PO BID Qty: 180 RF: 3 metoprolol tartrate 50 mg tablet See Rx Instructions .ROUTE .COMPLEX Qty: 180 RF: 2 clopidogrel 75 mg tablet See Rx Instructions .ROUTE .COMPLEX Qty: 90 RF: 3 multivitamin [Multiple Vitamins] Tablet 1 tab PO DAILY RF: 0 cetirizine [Zyrtec] 10 mg Tablet 10 mg PO DAILY PRN (Reason: Allergy Symptoms) RF: 0 acetaminophen [Tylenol Extra Strength] 500 mg Tablet 1,000 mg PO BEDTIME RF: 0 vitamin E 1 cap PO DAILY RF: 0 Novolin R Regular U-100 Insuln 100 unit/mL solution See Rx Instructions .ROUTE .COMPLEX RF: 0 Held metformin 500 mg tablet 500 mg PO BID RF: 0 Hold Instructions: Resume on 12/09/20. Discharge Orders: Discharge Order (Routine); Ordered 07/31/21 Ordered By: Ken Gates Referrals: [facility] [Outside] (You will resume your home health services with [facility]. If you have any questions or concerns please call them at [phone].) Andriy Norton MD [Physician] - 09/04/21 11:00 am (Please for follow-up with Dr. Norton on at 11:00A.M. If you have any questions or need to reschedule. Please call ) Shey Beaver FNP [Nurse Practitioner] - 08/14/21 10:00 am (Please follow-up with Shey Beaver on Aug.14 at 10:00A.M. If you have any questions or need to reschedule. Please call ) Discharge Diet: Diabetic Discharge Activity: Resume usual activity Patient Instructions: Peripheral Vascular Angioplasty (DC), Opioid Safety, Post Angiogram Home Care Instructions Activity Restrictions/Additional Instructions: Please do not lift more than 5 pounds of weight for the next 5 days Attestations Medical Necessity Statement*: Care not expected to cross 2 midnights. Time Spent in Patient Care*: less than 30 min Quality Metrics Clinical Quality Measures: During this hospital stay, did patient experience: None Coding Level of Care Code Acute Topstitcher Lockstitch for Radha Dalal
[2021-07-31 10:38] VITALS: BP 161/54; PULSE 78; RESP 18
== END 2021-07-31 10:40 | disposition home or self-care (01) ==
LOC: CSU 10:03
PROVIDERS: Admitting Provider Internal Medicine; PCP Nurse Practitioner Family; Visit Provider Internal Medicine
DX: I25.10 Atherosclerotic heart disease of native coronary artery without angina pectoris (principal); I70.92 Chronic total occlusion of artery of the extremities; M19.90 Unspecified osteoarthritis, unspecified site; J44.9 Chronic obstructive pulmonary disease, unspecified; E11.9 Type 2 diabetes mellitus without complications; Z79.84 Long term (current) use of oral hypoglycemic drugs; I10 Essential (primary) hypertension; Z82.49 Family history of ischemic heart disease and other diseases of the circulatory system; L97.529 Non-pressure chronic ulcer of other part of left foot with unspecified severity
CPT/HCPCS: 36415; 75710; C1769; C1887; C1894; G0378; J1644; J2250; J2310; J3010; J3490; J7030; Q0163; Q9967

== ENCOUNTER → 2021-08-14 10:55 | Outpatient (BNVA) | payer MEDICARE, MEDICAID, SELFPAY | PROVIDERS: PCP Nurse Practitioner Family; Visit Provider Nurse Practitioner Family | DX: I73.9 Peripheral vascular disease, unspecified (principal) | CPT/HCPCS: 80048 ==

== ENCOUNTER 2021-09-10 13:48 | Outpatient (CLI) | payer MEDICARE, MEDICAID, SELFPAY ==
--- NOTE | 2021-09-10 13:30 | US_ITS ---
WS: [id number] ULTRASOUND RENAL TECHNIQUE: Ultrasound examination of both kidneys. CLINICAL INFORMATION: RENAL CYST COMPARISON: Outside examination July 25, 2020 FINDINGS: Technically difficult study due to body habitus. RIGHT:Stable slightly complex right upper pole renal cyst measuring 2.9 x 3.1 x 3.1 cm. This appears unchanged from the outside examination, although evaluation is limited. This corresponds to the compl ex renal cyst seen on the CT October 02, 2020 Right kidney is normal in size and appearance. Echogenicity: Normal. Cortical thickness: 1.2 cm; Normal. Hydronephrosis: None. Perinephric fluid: None. Right kidney measures: 9.4 cm x 5.4 cm x 4.9 cm. LEFT: Left kidney is normal in size and appearance. Echogenicity: Normal. Cortical thickness: 1.7 cm; Normal. Hydronephrosis: None. Perinephric fluid: None. Left kidney measures: 10.0 cm x 5.0 cm x 5.3 cm. Normal visualized aorta. US/US renal BI* [id number] IMPRESSION: Technically difficult study due to body habitus. 1. No hydronephrosis in either kidney. 2. Stable slightly complex right upper pole renal cyst measuring 2.9 x 3.1 x 3 .1 cm appears stable compared to the outside examination although limited evalu ation. CT abdomen pelvis would provide better anatomic detail for future survei llance. 3. No other significant findings.
== END 2021-09-10 13:49 | disposition home or self-care (01) ==
LOC: RAD 13:49
PROVIDERS: PCP Nurse Practitioner Family; Visit Provider Urology
DX: N28.1 Cyst of kidney, acquired (principal)
CPT/HCPCS: 76770

== ENCOUNTER → 2021-12-07 10:11 | Outpatient (BNVA) | payer MEDICARE, MEDICAID, SELFPAY | PROVIDERS: PCP Nurse Practitioner Family; Visit Provider Internal Medicine Cardiovascular Disease | DX: I73.9 Peripheral vascular disease, unspecified (principal); L98.499 Non-pressure chronic ulcer of skin of other sites with unspecified severity; E11.22 Type 2 diabetes mellitus with diabetic chronic kidney disease; I12.9 Hypertensive chronic kidney disease with stage 1 through stage 4 chronic kidney disease, or unspecified chronic kidney disease; N18.31 Chronic kidney disease, stage 3a; Z87.891 Personal history of nicotine dependence; Z79.84 Long term (current) use of oral hypoglycemic drugs; Z79.4 Long term (current) use of insulin; I25.10 Atherosclerotic heart disease of native coronary artery without angina pectoris; I35.0 Nonrheumatic aortic (valve) stenosis | CPT/HCPCS: 99214 ==

== ENCOUNTER → 2022-06-06 10:44 | Outpatient (BNVA) | payer MEDICARE, MEDICAID, SELFPAY | PROVIDERS: PCP Nurse Practitioner Family; Visit Provider Internal Medicine Cardiovascular Disease | DX: I73.9 Peripheral vascular disease, unspecified (principal); I25.10 Atherosclerotic heart disease of native coronary artery without angina pectoris; I35.0 Nonrheumatic aortic (valve) stenosis; E78.5 Hyperlipidemia, unspecified; E11.65 Type 2 diabetes mellitus with hyperglycemia; Z79.4 Long term (current) use of insulin; J44.1 Chronic obstructive pulmonary disease with (acute) exacerbation; I12.9 Hypertensive chronic kidney disease with stage 1 through stage 4 chronic kidney disease, or unspecified chronic kidney disease; E11.22 Type 2 diabetes mellitus with diabetic chronic kidney disease; N18.31 Chronic kidney disease, stage 3a; Z87.891 Personal history of nicotine dependence | CPT/HCPCS: 99214 ==

== ENCOUNTER → 2022-06-07 08:50 | Outpatient (BNVA) | payer MEDICARE, MEDICAID, SELFPAY | PROVIDERS: PCP Nurse Practitioner Family; Visit Provider Internal Medicine Cardiovascular Disease | DX: E78.5 Hyperlipidemia, unspecified (principal) | CPT/HCPCS: 80061 ==

== ENCOUNTER → 2022-11-19 15:35 | Outpatient (BNVA) | payer MEDICARE, MEDICAID, SELFPAY | PROVIDERS: PCP Family Medicine; Visit Provider Internal Medicine Cardiovascular Disease | DX: I25.10 Atherosclerotic heart disease of native coronary artery without angina pectoris (principal); I05.0 Rheumatic mitral stenosis; L98.491 Non-pressure chronic ulcer of skin of other sites limited to breakdown of skin; I73.9 Peripheral vascular disease, unspecified; I10 Essential (primary) hypertension; Z79.4 Long term (current) use of insulin; J44.1 Chronic obstructive pulmonary disease with (acute) exacerbation; I13.0 Hypertensive heart and chronic kidney disease with heart failure and stage 1 through stage 4 chronic kidney disease, or unspecified chronic kidney disease; N18.31 Chronic kidney disease, stage 3a; I50.33 Acute on chronic diastolic (congestive) heart failure; E11.22 Type 2 diabetes mellitus with diabetic chronic kidney disease; Z87.891 Personal history of nicotine dependence; E11.65 Type 2 diabetes mellitus with hyperglycemia | CPT/HCPCS: 36415; 83880; 99214 ==

== ENCOUNTER → 2023-05-05 08:43 | Outpatient (BNVA) | payer MEDICARE, MEDICAID, SELFPAY | PROVIDERS: PCP Family Medicine; Visit Provider Podiatrist Foot & Ankle Surgery | DX: B35.1 Tinea unguium (principal); E11.65 Type 2 diabetes mellitus with hyperglycemia; Z79.4 Long term (current) use of insulin; I73.9 Peripheral vascular disease, unspecified; I50.9 Heart failure, unspecified; R60.9 Edema, unspecified; I83.009 Varicose veins of unspecified lower extremity with ulcer of unspecified site; N18.31 Chronic kidney disease, stage 3a; E11.622 Type 2 diabetes mellitus with other skin ulcer; L97.921 Non-pressure chronic ulcer of unspecified part of left lower leg limited to breakdown of skin; L97.911 Non-pressure chronic ulcer of unspecified part of right lower leg limited to breakdown of skin; E11.22 Type 2 diabetes mellitus with diabetic chronic kidney disease; Z79.84 Long term (current) use of oral hypoglycemic drugs | CPT/HCPCS: 11721; 99203 ==

== ENCOUNTER → 2023-07-07 13:26 | Outpatient (BNVA) | payer MEDICARE, MEDICAID, SELFPAY | PROVIDERS: PCP Family Medicine; Visit Provider Podiatrist Foot & Ankle Surgery | DX: E11.65 Type 2 diabetes mellitus with hyperglycemia (principal); B35.1 Tinea unguium; I73.9 Peripheral vascular disease, unspecified; Z79.4 Long term (current) use of insulin; I50.9 Heart failure, unspecified; R60.9 Edema, unspecified; N18.31 Chronic kidney disease, stage 3a; E11.622 Type 2 diabetes mellitus with other skin ulcer; I83.018 Varicose veins of right lower extremity with ulcer other part of lower leg; I83.028 Varicose veins of left lower extremity with ulcer other part of lower leg; L97.921 Non-pressure chronic ulcer of unspecified part of left lower leg limited to breakdown of skin; L97.911 Non-pressure chronic ulcer of unspecified part of right lower leg limited to breakdown of skin; Z79.84 Long term (current) use of oral hypoglycemic drugs | CPT/HCPCS: 11721 ==

== ENCOUNTER → 2023-09-29 11:19 | Outpatient (BNVA) | payer MEDICARE, MEDICAID, SELFPAY | PROVIDERS: PCP Family Medicine; Visit Provider Podiatrist Foot & Ankle Surgery | DX: B35.1 Tinea unguium; E11.65 Type 2 diabetes mellitus with hyperglycemia; Z79.4 Long term (current) use of insulin; I73.9 Peripheral vascular disease, unspecified; I50.9 Heart failure, unspecified; R60.9 Edema, unspecified; N18.31 Chronic kidney disease, stage 3a; M21.371 Foot drop, right foot; Z79.84 Long term (current) use of oral hypoglycemic drugs | CPT/HCPCS: 11721; 99213 ==